=== PATIENT | female | born 1950 | race Caucasian/White ===

== ENCOUNTER 2023-01-13 07:47 | Outpatient (OUT) | payer OTHER, SELFPAY ==
[2023-01-13 08:21] LABS: Basophils Absolute Auto 0.1 10^3/uL (0.0-0.1); Basophils Percent Auto 1.5 % (0.2-2.0); Eosinophils Absolute Auto 0.2 10^3/uL (0.0-0.7); Eosinophils Percent Auto 6.4 % (0.9-7.0); Hematocrit 41.5 % (36.0-48.0); Immature Granulocytes Abs Auto 0.01 10^3/uL (0.00-0.03); Immature Granulocytes Pct Auto 0.3 % (0.0-0.5); Lymphocytes Absolute Auto 1.4 10^3/uL (1.2-3.8); Lymphocytes Percent Auto 41.2 % (20.5-60.0); Mean Corpuscular HGB Conc 33.7 g/dL (29.9-35.2); Mean Corpuscular Hemoglobin 30.8 pg (26.7-34.0); Mean Corpuscular Volume 91.4 fL (81.0-99.0); Monocytes Absolute Auto 0.4 10^3/uL (0.3-0.8); Monocytes Percent Auto 10.9 % (1.7-12.0); Neutrophils Absolute Auto 1.3 10^3/uL (1.4-6.5); Neutrophils Percent Auto 39.7 % (43.0-75.0); Platelet Count 177 10^3/uL (150-450); Red Blood Count 4.54 10^6/uL (4.20-5.40); Red Cell Distribution Width 13.4 % (11.0-15.0); White Blood Count 3.3 10^3/uL (4.0-11.0)
[2023-01-13 08:51] LABS: Estimated Average Glucose 105 mg/dL; Glycohemoglobin A1C 5.3 % (4.5-6.2)
[2023-01-13 09:03] LABS: Alanine Aminotransferase 21 U/L (14-59); Albumin Globulin Ratio 1.2; Albumin Level 3.8 g/dL (3.4-5.0); Alkaline Phosphatase 77 U/L (46-116); Anion Gap 12.1; Aspartate Amino Transferase 14 U/L (15-37); BUN Creatinine Ratio 22.1; Bilirubin Total 0.5 mg/dL (0.2-1.0); Calcium 9.1 mg/dL (8.5-10.1); Chloride 103 mmol/L (98-107); Chol HDL Ratio 2.8; Cholesterol 172 mg/dL (<=200); Estimated GFR (African America >60 (>=60); Estimated GFR (Non-African Ame >60 (>=60); Free T3 2.42 pg/mL (2.18-3.98); Globulin 3.3 g/dL; Glucose 109 mg/dL (74-106); HDL Cholesterol 61 mg/dL (40-60); Potassium 4.1 mmol/L (3.5-5.1); Sodium 139 mmol/L (136-145); Thyroid Stimulating Hormone 0.143 uIU/mL (0.358-3.740); Total Protein 7.1 g/dL (6.4-8.2); Triglycerides 92 mg/dL (<=150); VLDL CHOLESTEROL 18.4 mg/dL
[2023-01-14 11:09] LABS: Insulin 5.4 uIU/mL (2.6-24.9)
== END 2023-01-13 07:48 | disposition home or self-care (01) ==
LOC: LAB 07:47
PROVIDERS: PCP Nurse Practitioner Family; Visit Provider Nurse Practitioner Family
DX: E03.9 Hypothyroidism, unspecified (principal); D64.9 Anemia, unspecified; E55.9 Vitamin D deficiency, unspecified; R73.09 Other abnormal glucose
CPT/HCPCS: 36415; 80053; 80061; 81003; 82306; 83036; 83525; 83540; 84436; 84443; 84481; 85025

== ENCOUNTER 2023-01-14 11:08 | Outpatient (REF) | payer OTHER, SELFPAY ==
[2023-01-14 11:33] LABS: Occult Blood Negative
== END 2023-01-14 11:09 | disposition home or self-care (01) ==
LOC: LAB 11:08
PROVIDERS: PCP Nurse Practitioner Family; Visit Provider Nurse Practitioner Family
DX: Z12.12 Encounter for screening for malignant neoplasm of rectum (principal)
CPT/HCPCS: G0328

== ENCOUNTER 2023-01-24 09:26 | Outpatient (OUT) | payer OTHER, SELFPAY ==
--- NOTE | 2023-01-24 09:40 | CT_ITS ---
The [address] [address] Patient Name: HILDA PARMAR MRN: [id number] date: 1950 Sex: F Assigned Patient Location: CT Current Patient Location: CT Accession/Order Number: [id number] Exam Date: 01/24/2023 09:33 Report Date: 01/24/2023 13:07 At the request of: KAT PARIKH Procedure: CT lung screening low-dose EXAMINATION: CT lung screening low-dose HISTORY: Personal hx of nicotine dependence Z87.891 COMPARISON: CT chest 01/14/2022 TECHNIQUE: Axial, Coronal, and Sagittal images were created without the administration of IV contrast material. Dose reduction techniques were achieved by using automated exposure control and/or adjustment of mA and/or kV according to patient size and/or use of iterative reconstruction technique. FINDINGS: LUNGS: Stable appearance of a few tiny 3 mm nodules scattered within the lungs. No infiltrates or suspicious findings. PLEURA: No mass, effusion, or pneumothorax. VASCULATURE: No abnormality. MOLLY: No mass or pathologic adenopathy. MEDIASTINUM: No mass or pathologic adenopathy. CARDIAC: No enlargement, pericardial thickening, or significant calcification. AORTA: No aneurysm or dissection. CHEST WALL: No mass or axillary adenopathy BONES: No bone lesion or fracture. LIMITED ABDOMEN: No suspicious findings. Limited images of the upper abdomen. OTHER: Negative. CT/CT lung screening low-dose IMPRESSION: 1. Lung-RADS 2- Benign Appearance or Behavior. Nodules with a very low likelihood of becoming a clinically active cancer due to size or lack of growth. Follow-up CT Chest in 1 year. Electronically authenticated by: ROBERTA COLLAZO Date: 01/24/2023 13:07
== END 2023-01-24 09:27 | disposition home or self-care (01) ==
LOC: CT 09:26
PROVIDERS: PCP Nurse Practitioner Family; Visit Provider Nurse Practitioner Family
DX: Z87.891 Personal history of nicotine dependence (principal)
CPT/HCPCS: 71271

== ENCOUNTER 2023-02-04 10:15 | Outpatient (OUT) | payer OTHER, SELFPAY ==
[2023-02-04 10:32] LABS: Basophils Percent Auto 1.1 % (0.2-2.0); Eosinophils Absolute Auto 0.1 10^3/uL (0.0-0.7); Eosinophils Percent Auto 2.8 % (0.9-7.0); Hematocrit 41.2 % (36.0-48.0); Hemoglobin 13.9 g/dL (12.0-16.0); Immature Granulocytes Abs Auto 0.01 10^3/uL (0.00-0.03); Immature Granulocytes Pct Auto 0.3 % (0.0-0.5); Lymphocytes Absolute Auto 1.5 10^3/uL (1.2-3.8); Lymphocytes Percent Auto 40.5 % (20.5-60.0); Mean Corpuscular HGB Conc 33.7 g/dL (29.9-35.2); Mean Corpuscular Hemoglobin 30.8 pg (26.7-34.0); Mean Corpuscular Volume 91.2 fL (81.0-99.0); Monocytes Absolute Auto 0.4 10^3/uL (0.3-0.8); Monocytes Percent Auto 12.3 % (1.7-12.0); Neutrophils Absolute Auto 1.5 10^3/uL (1.4-6.5); Platelet Count 186 10^3/uL (150-450); Red Blood Count 4.52 10^6/uL (4.20-5.40); Red Cell Distribution Width 13.4 % (11.0-15.0); White Blood Count 3.6 10^3/uL (4.0-11.0)
== END 2023-02-04 10:16 | disposition home or self-care (01) ==
LOC: LAB 10:15
PROVIDERS: PCP Nurse Practitioner Family; Visit Provider Nurse Practitioner Family
DX: D72.9 Disorder of white blood cells, unspecified (principal)
CPT/HCPCS: 36415; 85025

== ENCOUNTER 2023-04-21 09:52 | Outpatient (OUT) | payer OTHER, SELFPAY ==
[2023-04-21 10:10] LABS: Basophils Percent Auto 0.8 % (0.2-2.0); Eosinophils Absolute Auto 0.1 10^3/uL (0.0-0.7); Eosinophils Percent Auto 2.7 % (0.9-7.0); Hematocrit 42.9 % (36.0-48.0); Hemoglobin 14.3 g/dL (12.0-16.0); Immature Granulocytes Abs Auto 0.01 10^3/uL (0.00-0.03); Immature Granulocytes Pct Auto 0.3 % (0.0-0.5); Lymphocytes Absolute Auto 1.5 10^3/uL (1.2-3.8); Lymphocytes Percent Auto 39.1 % (20.5-60.0); Mean Corpuscular HGB Conc 33.3 g/dL (29.9-35.2); Mean Corpuscular Hemoglobin 30.2 pg (26.7-34.0); Mean Corpuscular Volume 90.7 fL (81.0-99.0); Monocytes Absolute Auto 0.4 10^3/uL (0.3-0.8); Monocytes Percent Auto 11.6 % (1.7-12.0); Neutrophils Absolute Auto 1.7 10^3/uL (1.4-6.5); Neutrophils Percent Auto 45.5 % (43.0-75.0); Platelet Count 200 10^3/uL (150-450); Red Blood Count 4.73 10^6/uL (4.20-5.40); Red Cell Distribution Width 12.9 % (11.0-15.0); White Blood Count 3.7 10^3/uL (4.0-11.0)
== END 2023-04-21 09:53 | disposition home or self-care (01) ==
LOC: LAB 09:52
PROVIDERS: PCP Nurse Practitioner Family; Visit Provider Nurse Practitioner Family
DX: D72.9 Disorder of white blood cells, unspecified (principal)
CPT/HCPCS: 36415; 85025

== ENCOUNTER 2023-10-04 14:16 | Outpatient (OUT) | payer OTHER, SELFPAY | END 2023-10-04 14:17 | disposition home or self-care (01) | LOC: CARD 14:16 | PROVIDERS: PCP Nurse Practitioner Family; Visit Provider Nurse Practitioner Family | DX: R00.2 Palpitations (principal) | CPT/HCPCS: 93242 ==

== ENCOUNTER 2023-12-06 09:35 | Outpatient (OUT) | payer OTHER, SELFPAY ==
--- OUTSIDE RECORDS SUMMARY | 2023-12-06 09:46 | XMS_ITS | CCD ---
Author Organization [facility] Care Team Providers Care Periodontist Name Role Phone Ousmane De La Torre Unavailable Vernon Bajwa Unavailable [phone] JL, JULISA Admitting Unavailable JL, JULISA Attending Unavailable JL, JULISA Primary Care Unavailable DR ROBERTA COLLAZO Consulting Unavailable JL, JULISA Consulting Unavailable JL, JULISA Admitting Unavailable JL, JULISA Attending Unavailable JL, JULISA Primary Care Unavailable JL, JULISA Consulting Unavailable JL, JULISA Admitting Unavailable JL, JULISA Attending Unavailable JL, JULISA Primary Care Unavailable JL, JULISA Admitting Unavailable JL, JULISA Attending Unavailable JL, JULISA Primary Care Unavailable JL, JULISA Consulting Unavailable Self, Referral Attending Unavailable VernOusmane haro Primary Care Unavailable Julisa Alfaro Referring Unavailable Self, Referral Admitting Unavailable LEVAR DENIS Attending Unavailable Allergies Allergy Classification Reported Allergen(s) Allergy Type Date of Onset Reaction(s) Facility Opioid Agonists (1 source) Codeine; Translations: [CODEINE] Drug Allergy [facility] Sulfamethoxazole / Trimethoprim (1 source) Sulfamethoxazole / Trimethoprim; Translations: [SULFAMETHOXAZOLE-TR IMETHOPRIM] Drug Allergy [facility] (1 source) Codeine Drug Allergy 3 [facility] Rep[facility] (1 source) Sulfamethoxazole / Trimethoprim Drug Allergy [facility] Medications Current Medications Medication Drug Class(es) Dates Sig (Normalized) Sig (Original) albuterol 0.83 mg/ml inhalation solution (4 sources) beta2-Adrenergic Agonist Albuterol Sulfate (2.5 MG/3ML) 0.083% 3 ml as needed Inhalation every 6 hrs Active ALPRAZolam 0.25 mg oral tablet (4 sources) Benzodiazepine take 1 tablet by mouth every twelve hours ALPRAZolam 0.25 MG 1 tablet Orally Twice a day Active brinzolamide 10 mg/ml ophthalmic suspension (2 sources) Carbonic Anhydrase Inhibitor take 1 drop(s) into the eye(s) three times daily Brinzolamide 1 % 1 drop into affected eye Ophthalmic Three times a day Active dicyclomine hydrochloride 20 mg oral tablet (2 sources) Anticholinergic Start: 04-07-2022 take 1 tablet by mouth four times daily as needed Dicyclomine HCl 20 MG 1 tablet Orally Four times a day PRN for 30 day(s) Mar, Active dorzolamide 20 mg/ml / timolol 5 mg/ml ophthalmic solution (4 sources) Carbonic Anhydrase Inhibitor, beta-Adrenergic Cass take 1 drop(s) into the eye(s) twice daily Dorzolamide HCl-Timolol Mal 22.3-6.8 MG/ML 1 drop into affected eye Ophthalmic Twice a day Active levothyroxine sodium 0.137 mg oral tablet (4 sources) l-Thyroxine take 1 tablet by mouth once daily in the morning Levothyroxine Sodium 137 MCG 1 tablet in the morning on an empty stomach Orally Once a day Active loratadine 10 mg oral tablet (4 sources) take 1 tablet by mouth once daily Loratadine 10 MG 1 tablet Orally Once a day Active pantoprazole 40 mg delayed release oral tablet (2 sources) Proton Pump Inhibitor take 1 tablet by mouth every twenty-four hours Pantoprazole Sodium 40 MG 1 tablet Orally Once a day for 90 days Active Completed/Discontinued Medications Medication Drug Class(es) Dates Sig (Normalized) Sig (Original) triamcinolone acetonide 40 mg/ml injectable suspension (16 sources) Corticosteroid Start: 09-21-2021 Kenalog-40 Sep, 20 mg Start: 09-21-2021 Kenalog -40 mg Sep, 20 mg Start: 01-19-2021 Kenalog -40 mg Jan, 20 mg Problems Active Problems Problem Classification Problem Date Documented Da te Episodic/Chronic Abdominal hernia (3 sources) Hiatal hernia; Translations: [Diaphragmatic hernia without obstruction or gangrene] Episodic Abdominal pain (1 source) Epigastric pain Episodic Cardiac dysrhythmias (2 sources) Bradycardia, unspecified; Translations: [Bradycardia, unspecified] Onset: 4 Episodic Conduction disorders (2 sources) Unspecified atrioventricular block; Translations: [Unspecified atrioventricular block] Onset: 4 Chronic Coronary atherosclerosis and other heart disease (2 sources) Unstable angina; Translations: [Unstable angina] Onset: 4 Chronic Disorders of lipid metabolism (1 source) Hyperlipidemia, unspecified; Translations: [HYPERLIPIDEMIA UNSPECIFIED] Onset: 2 Chronic Esophageal disorders (10 sources) Gastroesophageal reflux disease; Translations: [Gastro-esophageal reflux disease without esophagitis] Onset: 2 Resolved: 2 Chronic Nonspecific chest pain (4 sources) Other chest pain; Translations: [OTHER CHEST PAIN] Onset: 2 Episodic Other disorders of stomach and duodenum (1 source) Indigestion; Translations: [Functional dyspepsia] Episodic Other disorders of stomach and duodenum (1 source) Functional dyspepsia Episodic Other gastrointestinal disorders (2 sources) Dysphagia; Translations: [Dysphagia, unspecified] Episodic Other lower respiratory disease (2 sources) Shortness of breath; Translations: [Shortness of breath] Onset: 4 Episodic Screening and history of mental health and substance abuse codes (4 sources) Personal history of nicotine dependence; Translations: [PERSONAL HISTORY OF NICOTINE DEPEND] Onset: 2 Episodic Unclassified (3 sources) CONTACT W/AND (SUSP) EXPOS COVID-19; Translations: [CONTACT W/AND (SUSP) EXPOS COVID-19] Onset: 1 Unclassified (1 source) OTHER SPECIFIED COUGH; Translations: [OTHER SPECIFIED COUGH] Onset: 1 Unclassified (1 source) Encounter for screening mammogram for malignant neoplasm of breast; Translations: [Encounter for screening mammogram for malignant neoplasm of breast] Onset: 4 Past or Other Problems Problem Classification Problem Date Documented Da te Episodic/Chronic Deficiency and other anemia (1 source) Anemia, unspecified; Translations: [ANEMIA UNSPECIFIED] Onset: 10-09-2021 Episodic Diabetes mellitus without complication (1 source) Other abnormal glucose; Translations: [OTHER ABNORMAL GLUCOSE] Onset: 10-09-2021 Episodic Malaise and fatigue (4 sources) Other fatigue; Translations: [OTHER FATIGUE] Onset: 10-08-2021 Episodic Unclassified (1 source) CONTACT W/AND (SUSP) EXPOS COVID-19; Translations: [CONTACT W/AND (SUSP) EXPOS COVID-19] Onset: 05-05-2021 Results Test Name Value Interpretation Reference Range Facility Office Visiton 11-14-2023 Follow-up visit [id number] Hilda Parmar 1950 F Date Provider Department Center 11/14/2023 [facility] Family History Problem Relation Age of Onset Angina Maternal Grandmother Family Status - Relation Status Age at Maternal Grandmother Level of Service:89272 CO OFFICE/OUTPATIENT NEW MODERATE MDM 45 MINUTES [facility] MM screening mammo BI w/CADo n 08-02-2023 MM screening mammo BI w/CAD [facility] [address] Mammography Report Signed Patient: Hilda Parmar MR#: [id number] : 1950 Acct:[id number] Age/Sex: 73 / F ADM Date: 08/02/23 Loc: [place] Room: Type: [facility] Attending Dr: Referral Self Copies to: MD Julisa Daniels CNP SELF,REFERRAL Ordering Provider: SELF,REFERRAL Date of Service: 08/02/23 MM/MM screening mammo BI w/CAD: SCREENING BILATERAL Screening Full Field digital mammogram with 3-D imaging. Full field digital CC and MLO imaging performed. CAD utilized. COMPARISON: 06/23/2022 HISTORY: Annual screening BREAST COMPOSITION: Scattered fibroglandular densities of the breast parenchyma identified BENIGN BREAST CALCIFICATIONS: Present VASCULAR CALCIFICATIONS: Present DEVELOPING ARCHITECTURAL DISTORTION: None DEVELOPING BREAST NODULE: None DEVELOPING MALIGNANT CALCIFICATIONS: None AXILLARY LYMPH NODES: Normal POSTSURGICAL CHANGES: None MM/MM screening mammo BI w/CAD IMPRESSION: No mammographic evidence of malignancy. Routine follow-up recommended in one year. RESULT CODE: 2 Benign Findings(s) DENSITY CODE: 2 (approximately 25-50% glandular) FOLLOW UP: 1YR THE FALSE-NEGATIVE RATE OF MAMMOGRAPHY IS APPROXIMATELY 10%. IMAGING OF A PALPABLE ABNORMALITY MUST BE BASED ON CLINICAL GROUNDS. PATIENT WAS ENTERED INTO A REMINDER SYSTEM WITH A TARGET DUE DATE FOR THE NEXT MAMMOGRAM. Impression dictated by: Jayjay Somers M.D.08/02/2023 10:43 AM Dictation Location: [facility] Transcribed By: [facility] 08/02/23 1043 Dictated By: Jayjay Somers DO 08/02/231040 Signed By: 08/02/23 10[address] [facility] [address] CHEST WO CONon 01-14-2022 CT CHEST WO CON EXAMINATION: CT CHEST WO CON HISTORY: Nicotine dependence COMPARISON: CT chest 12/25/2020 TECHNIQUE: Axial, Coronal, and Sagittal images were created without the administration of IV contrast material. Dose reduction techniques were achieved by using automated exposure control and/or adjustment of mA and/or kV according to patient size and/or use of iterative reconstruction technique. FINDINGS: LUNGS: Stable appearance of the few tiny 2-3 mm nodules scattered within the lungs; no suspicious nodules. No acute infiltrates or significant chronic changes. PLEURA: No mass, effusion, or pneumothorax. VASCULATURE: No abnormality. MOLLY: No mass or pathologic adenopathy. MEDIASTINUM: No mass or pathologic adenopathy. CARDIAC: No enlargement, pericardial thickening, or significant calcification. AORTA: No aneurysm or dissection. CHEST WALL: No mass or axillary adenopathy BONES: No bone lesion or fracture. LIMITED ABDOMEN: No suspicious findings. Limited images of the upper abdomen. OTHER: Negative. IMPRESSION: 1. LUNG SCREENING: Lung-RADS Category 2- Benign Appearance or Behavior. Nodules with a very low likelihood of becoming a clinically active cancer due to size or lack of growth. 2. Continue annual screening with LDCT in 12 months. Electronically authenticated by: ROBERTA COLLAZO Date: 2022-01-14 16:24 Normal [facility] INSULINon 10-09-2021 Insulin 5.2 uIU/mL Normal 2.6-24.9 [facility] Comment on above: Performed By: #### I NSULIN #### [facility] [address] [place] [address] Dr. Raf [place] CBC AUTO DIFFon 10-08-2021 BASO # 0.1 103/ul Normal 0.0-0.1 [facility] Comment on above: Performed By: #### C BC #### [facility] [address] [address] [address] Raf [place] Basophils/100 WBC (Bld) 1.1 % Normal 0.2-2.0 [facility] Comment on above: Performed By: #### C BC #### [facility] [address] [address] [address] Raf [place] EO # 0.1 103/ul Normal 0.0-0.7 [facility] Comment on above: Performed By: #### C BC #### [facility] [address] [address] [address] Raf [place] Eosinophils/100 WBC (Bld) 1.6 % Normal 0.9-7.0 [facility] Comment on above: Performed By: #### C BC #### [facility] [address] [place] [address] Dr. Raf [place] Erythrocyte distribution width (RBC) [Ratio] 13.2 % Normal 11.0-15.0 [facility] Comment on above: Performed By: #### C BC #### [facility] [address] [place] [address] Dr. Raf [place] Hematocrit (Bld) [Volume fraction] 45.2 % Normal 36.0-48.0 [facility] Comment on above: Performed By: #### C BC #### [facility] [address] [place] [address] Dr. Raf [place] Hemoglobin (Bld) [Mass/Vol] 14.9 g/dL Normal 12.0-16.0 [facility] Comment on above: Performed By: #### C BC #### [facility] [address] [place] [address] Dr. Raf [place] IG # 0.01 10e3/ul Normal 0.00-0.03 [facility] Comment on above: Performed By: #### C BC #### [facility] [address] [place] [address] Dr. Raf [place] IG % 0.2 % Normal 0.0-0.5 [facility] Comment on above: Performed By: #### C BC #### [facility] [address] [place] [address] Dr. Raf [place] LYMPH # 1.5 103/ul Normal 1.2-3.8 [facility] Comment on above: Performed By: #### C BC #### [facility] [address] [place] [address] Dr. Raf [place] Lymphocytes/100 WBC (Bld) 33.9 % Normal 20.5-60.0 [facility] Comment on above: Performed By: #### C BC #### [facility] [address] [place] [address] Dr. Raf [place] MANUAL DIFF REQ NO Normal [facility] Comment on above: Performed By: #### C BC #### [facility] [address] [place] [address] Dr. Raf Houston MCH (RBC) [Entitic mass] 30.6 pg Normal 26.7-34.0 [facility] Comment on above: Performed By: #### C BC #### [facility] [address] [place] [address] Dr. Raf Houston MCHC (RBC) [Mass/Vol] 33.0 g/dL Normal 29.9-35.2 [facility] Comment on above: Performed By: #### C BC #### [facility] [address] [place] [address] Dr. Raf Houston MCV (RBC) [Entitic vol] 92.8 fL Normal 81.0-99.0 [facility] Comment on above: Performed By: #### C BC #### [facility] [address] [place] [address] Dr. Raf Houston MONO # 0.5 103/ul Normal 0.3-0.8 [facility] Comment on above: Performed By: #### C BC #### [facility] [address] [place] [address] Dr. Raf [place] Monocytes/100 WBC (Bld) 11.0 % Normal 1.7-12.0 [facility] Comment on above: Performed By: #### C BC #### [facility] [address] [place] [address] Dr. Raf Houston NEUT # 2.3 103/ul Normal 1.4-6.5 [facility] Comment on above: Performed By: #### C BC #### [facility] [address] [place] [address] Dr. Raf [place] Neutrophils/100 WBC (Bld) 52.2 % Normal 43.0-75.0 [facility] Comment on above: Performed By: #### C BC #### [facility] [address] [place] [address] Dr. Raf [place] Platelet mean volume (Bld) [Entitic vol] 9.6 fL Normal 9.5-13.5 [facility] Comment on above: Performed By: #### C BC #### [facility] [address] [place] [address] Dr. Raf Houston PLT 215 103/ul Normal 150-450 [facility] Comment on above: Performed By: #### C BC #### [facility] [address] [place] [address] Dr. Raf Houston RBC 4.87 106/ul Normal 4.20-5.40 [facility] Comment on above: Performed By: #### C BC #### [facility] [address] [place] [address] Dr. Raf Houston WBC 4.5 103/ul Normal 4.0-11.0 [facility] Comment on above: Performed By: #### C BC #### [facility] [address] [place] [address] Dr. Raf [place] FREE THYROXINE INDEX T7on FTI 3.61 Normal [facility] Comment on above: Performed By: #### T 7, CMP, TSH, LIPID #### [facility] [address] [place] [address] Dr. Raf [place] T3U 41.0 % Critically high 23.5-40.5 The [facility] Comment on above: Performed By: #### T 7, CMP, TSH, LIPID #### [facility] [address] [place] [address] Dr. Raf [place] T4 [Mass/Vol] 8.80 ug/dL Normal 4.80-13.90 [facility] Comment on above: Performed By: #### T 7, CMP, TSH, LIPID #### [facility] [address] [address] [address] Raf [place] GLYCOHEMOGLOBIN A1Con 2021 ADA RECOMMENDATION SEE BELOW Normal [facility] Comment on above: Result Comment: ADA RECOMMENDED LIMIT 4.0 - 6.0 ADA THERAPEUTIC TARGET < 7.0 ACTION SUGGESTED > 7.0 Performed By: #### A 1C #### [facility] [address] [address] [address] Raf [place] Glucose [Mass/Vol] 111 mg/dL Normal [facility] Comment on above: Performed By: #### A 1C #### [facility] [address] [place] [address] Dr. Raf [place] HbA1c (Bld) [Mass fraction] 5.5 % Normal 4.5-6.2 [facility] Comment on above: Performed By: #### A 1C #### [facility] [address] [address] [address] Raf [place] IRONon 10-08-2021 Iron [Mass/Vol] 139.0 ug/dL Normal 50.0-170.0 [facility] Comment on above: Performed By: #### I ISABEL #### [facility] [address] [place] [address] Dr. Raf Houston LIPID PROFILEon 10-08-2021 CHOL-HDL RATIO NORM SEE BELOW Normal [facility] Comment on above: Result Comment: 3.3 - 4.4 LOW RISK 4.4 - 7.1 AVERAGE RISK 7.1 - 11.0 MODERATE RISK >11.0 HIGH RISK Performed By: #### T 7, CMP, TSH, LIPID #### [facility] [address] [place] [address] Dr. Raf [place] Cholesterol [Mass/Vol] 189 mg/dL Normal <=200 [facility] Comment on above: Performed By: #### T 7, CMP, TSH, LIPID #### [facility] [address] [place] [address] Dr. Raf [place] Cholesterol in HDL [Mass/Vol] 63 mg/dL Critically high 40-60 [facility] Comment on above: Performed By: #### T 7, CMP, TSH, LIPID #### [facility] [address] [address] [address] Raf [place] Cholesterol in LDL [Mass/Vol] 110.0 mg/dL Normal [facility] Comment on above: Performed By: #### T 7, CMP, TSH, LIPID #### [facility] [address] [address] [address] Raf [place] Cholesterol.total/Cho lesterol in HDL [Mass ratio] 3.0 {ratio} Normal [facility] Comment on above: Performed By: #### T 7, CMP, TSH, LIPID #### [facility] [address] [address] [address] Raf [place] HDL NORMAL > or = 60 mg/dl - LOW CARDIOVASCULAR RISK <40 mg/dl - HIGH CARDIOVASCULAR RISK Normal [facility] Comment on above: Performed By: #### T 7, CMP, TSH, LIPID #### [facility] [address] [address] [address] Raf [place] LDL CALC NORMAL SEE BELOW Normal [facility] Comment on above: Result Comment: <100 mg/dl OPTIMAL 100 - 129 mg/dl NEAR OR ABOVE OPTIMAL 130 - 159 mg/dl BORDERLINE HIGH 160 - 189 mg/dl HIGH >190 mg/dl VERY HIGH Performed By: #### T 7, CMP, TSH, LIPID #### [facility] [address] [address] [address] Raf [place] Triglyceride [Mass/Vol] 80 mg/dL Normal <=150 [facility] Comment on above: Performed By: #### T 7, CMP, TSH, LIPID #### [facility] [address] [address] [address] Raf [place] VLDL CALC 16.0 mg/dL Normal [facility] Comment on above: Performed By: #### T 7, CMP, TSH, LIPID #### [facility] [address] [address] [address] Raf [place] PROF 14(COMP METB)on 022 Albumin [Mass/Vol] 3.8 g/dL Normal 3.4-5.0 [facility] Comment on above: Performed By: #### T 7, CMP, TSH, LIPID #### [facility] [address] [address] [address] Raf [place] Albumin/Globulin [Mass ratio] 1.1 {ratio} Normal [facility] Comment on above: Performed By: #### T 7, CMP, TSH, LIPID #### [facility] [address] [place] [address] Dr. Raf [place] ALP [Catalytic activity/Vol] 72 U/L Normal 46-116 [facility] Comment on above: Performed By: #### T 7, CMP, TSH, LIPID #### [facility] [address] [place] [address] Dr. Raf [place] ALT [Catalytic activity/Vol] 35 U/L Normal 14-59 [facility] Comment on above: Performed By: #### T 7, CMP, TSH, LIPID #### [facility] [address] [address] [address] Raf [place] Anion gap [Moles/Vol] 9.7 mmol/L Normal [facility] Comment on above: Performed By: #### T 7, CMP, TSH, LIPID #### [facility] [address] [address] [address] Raf [place] AST [Catalytic activity/Vol] 18 U/L Normal 15-37 [facility] Comment on above: Performed By: #### T 7, CMP, TSH, LIPID #### [facility] [address] [address] [address] Raf [place] Bilirubin [Mass/Vol] 0.6 mg/dL Normal 0.2-1.0 [facility] Comment on above: Performed By: #### T 7, CMP, TSH, LIPID #### [facility] [address] [address] [address] Raf [place] Calcium [Mass/Vol] 8.7 mg/dL Normal 8.5-10.1 [facility] Comment on above: Performed By: #### T 7, CMP, TSH, LIPID #### [facility] [address] [address] [address] Raf [place] Chloride [Moles/Vol] 103 mmol/L Normal 98-107 [facility] Comment on above: Performed By: #### T 7, CMP, TSH, LIPID #### [facility] [address] [address] [address] Raf [place] CO2 [Moles/Vol] 31.6 mmol/L Normal 21.0-32.0 [facility] Comment on above: Performed By: #### T 7, CMP, TSH, LIPID #### [facility] [address] [place] [address] Dr. Raf Houston Creatinine [Mass/Vol] 0.72 mg/dL Normal 0.55-1.02 [facility] Comment on above: Performed By: #### T 7, CMP, TSH, LIPID #### [facility] [address] [place] [address] Dr. Raf [place] EGFR-AF BRUNEIAN >60 Normal >=60 [facility] Comment on above: Performed By: #### T 7, CMP, TSH, LIPID #### [facility] [address] [place] [address] Dr. Raf [place] EGFR-NON AF BRUNEIAN >60 Normal >=60 [facility] Comment on above: Performed By: #### T 7, CMP, TSH, LIPID #### [facility] [address] [place] [address] Dr. Raf [place] Globulin (S) [Mass/Vol] 3.4 g/dL Normal [facility] Comment on above: Performed By: #### T 7, CMP, TSH, LIPID #### [facility] [address] [place] [address] Dr. Raf [place] Glucose [Mass/Vol] 103 mg/dL Normal 74-106 [facility] Comment on above: Performed By: #### T 7, CMP, TSH, LIPID #### [facility] [address] [place] [address] Dr. Raf [place] Potassium [Moles/Vol] 4.3 mmol/L Normal 3.5-5.1 [facility] Comment on above: Performed By: #### T 7, CMP, TSH, LIPID #### [facility] [address] [place] [address] Dr. Raf [place] Protein [Mass/Vol] 7.2 g/dL Normal 6.1-8.2 [facility] Comment on above: Performed By: #### T 7, CMP, TSH, LIPID #### [facility] [address] [place] [address] Dr. Raf [place] Sodium [Moles/Vol] 140 mmol/L Normal 136-145 [facility] Comment on above: Performed By: #### T 7, CMP, TSH, LIPID #### [facility] [address] [place] [address] Dr. Raf [place] Urea nitrogen [Mass/Vol] 13.0 mg/dL Normal 7.0-18.0 [facility] Comment on above: Performed By: #### T 7, CMP, TSH, LIPID #### [facility] [address] [place] [address] Dr. Raf [place] Urea nitrogen/Creatinine [Mass ratio] 18.1 mg/mg Normal [facility] Comment on above: Performed By: #### T 7, CMP, TSH, LIPID #### [facility] [address] [place] [address] Dr. Raf [place] TSHon 10-08-2021 TSH 0.471 uIU/mL Normal 0.470-4.680 [facility] Comment on above: Performed By: #### T 7, CMP, TSH, LIPID #### [facility] [address] [place] [address] Dr. Raf Houston TSH RANGE SEE BELOW Normal [facility] Comment on above: Result Comment: <0.3 4 UIU/ml HYPERTHYROID 0.34-5.60 UIU/ml EUTHYROID >5.60 UIU/ml HYPOTHYROID Performed By: #### T 7, CMP, TSH, LIPID #### [facility] [address] [place] [address] Dr. Raf [place] Covid-19 PCR (CVDTB)on 04-14 SARS-CoV-2 (COVID-19) RNA NAHED+probe Ql (Unsp spec) Not detected Normal NOT DETECTED [facility] Comment on above: Result Comment: This test is not yet approved or cleared by the [place] FDA. When there are no FDA-approved or cleared tests available, and other criteria are met, FDA can make tests available under an emergency access mechanism called an Emergency Use Authorization (EUA). The EUA for this test is supported by the [place] of Health and Human Service's (HHS's) declaration that circumstances exist to justify the emergency use of in vitro diagnostics for the detection and/or diagnosis of the virus that causes COVID-19. This EUA will remain in effect (meaning this test can be used) for the duration of the COVID-19 declaration justifying emergency of IVDs, unless it is terminated or revoked by FDA (after which the test may no longer be used). When diagnostic testing is negative, the possibility of a false negative should be considered in the context of a patient's recent exposures and the presence of clinical signs and symptoms consistent with SARS-CoV-2. Performed By: #### C VDTB #### [facility] [address] [place] [address] Dr. Raf [place] Outside Colonoscopyon 2019 Outside Colonoscopy [id number] 53#1.00CD:127 Normal [facility] Lab Reportson 01-22-2020 Lab Reports [id number] D4#1.00CD:127 Normal [facility] Consent for Procedure/Surger yon 01-02-2020 Consent for Procedure/Surgery [id number] 5D#1.00CD:127 Normal [facility] Facesheeton 01-01-2020 Facesheet [id number] 41#1.00CD:127 Normal [facility] Ambulatory Clinical Summaryo n 12-28-2019 Ambulatory Clinical Summary {[id number]}CD:[id number] 8 [facility] Consultation Noteon 12-24-19 20 Consultation Note [id number] C7#1.00CD:127 [facility] Lab Reportson 12-24-2019 Lab Reports [id number] 1C#1.00CD:127 [facility] Physician Referralon 020 Physician Referral [id number]#1.00CD:127 [facility] Vital Signs Date Time Vital Sign Value Performing Clinician Facility 10-06-2022 10:45-0400 Body height 165.1 cm Vernon Bajwa Other [facility] Other 10-06-2022 10:45-0400 Body mass index (BMI) [Ratio] 32.61 kg/m2 Vernon Bajwa Other [facility] Other 10-06-2022 10:45-0400 Body weight 88.91 kg Vernon Bajwa Other [facility] Other 10-06-2022 10:45-0400 Diastolic blood pressure 85 mm[Hg] Vernon Bajwa Other [facility] Other 10-06-2022 10:45-0400 Systolic blood pressure 132 mm[Hg] Vernon Bajwa Other [facility] Other 04-07-2022 11:00-0400 Body height 165.1 cm Vernon Bajwa Other [facility] Other 04-07-2022 11:00-0400 Body mass index (BMI) [Ratio] 32.28 kg/m2 Vernon Bajwa Other [facility] Other 04-07-2022 11:00-0400 Body weight 88 kg Vernon Bajwa Other [facility] Other 04-07-2022 11:00-0400 Diastolic blood pressure 89 mm[Hg] Vernon Bajwa Other [facility] Other 04-07-2022 11:00-0400 Systolic blood pressure 127 mm[Hg] Vernon Bajwa Other [facility] Other Encounters Encounter Date Encounter Type Care Provider Facility Start: 11-14-2023 End: 11-14-2023 ambulatory [facility] Start: 08-02-2023 End: 08-02-2023 ambulatory Referral Self Facility:[facility] Start: 10-06-2022 End: 10-06-2022 ambulatory Vernon Bajwa Other [facility] Other Start: 10-06-2022 Office outpatient visit 15 minutes Vernon Bajwa [facility] Start: 04-07-2022 End: 04-07-2022 ambulatory Vernon Garett Other [facility] Other Start: 04-07-2022 Office outpatient visit 15 minutes Vernon Bajwa [facility] Start: 01-14-2022 End: 01-15-2022 ambulatory JULISA JL Facility:[facility] Start: 01-12-2022 End: 01-12-2022 ambulatory Vernon Garett Other [facility] Other Start: 01-12-2022 Telephone encounter Vernon Chasitydean ck [facility] Start: 10-19-2021 End: 10-20-2021 ambulatory JULISA JL Facility:[facility] Start: 10-08-2021 End: 10-09-2021 ambulatory JULISA JL Facility:[facility] Start: 09-20-2021 End: 09-20-2021 ambulatory Ousmane De La Torre Other [place] [facility] Other Start: 09-20-2021 Encounter by josiah De La Torre [facility] Start: 05-05-2021 End: 05-05-2021 ambulatory JULISA ALFARO Facility:[facility] Payers Date Payer Category Payer Self-pay 2022 Unknown [id number] 1961 Medicare [id number] 2.1 [id number] 1961 Unknown [id number] 2.16.8 [id number] 1948 Unknown [id number] 2.16.84 [id number] 1948 Unknown [id number] 2.16.84 [id number] 1948 Unknown [id number] 2.16.84 [id number] 1948 Unknown [id number] 2.16.84 [id number] Unknown [id number] 2.16.8 [id number] Social History Date Type Detail Facility Sex Assigned At [place] [facility] Other Progress note 11-14-2023 Note Date & Type Note Facility 11-14-2023 Note [facility] Cardiology Clinic Note Chief Complaint: New patient here to establish care. Ref from Julisa Alfaro CNP for bradycardia. She wore Holter monitor recently. Denies chest pain. Does get FOSTER and palpitations. Former smoker. HPI: Hilda Parmar is a 73 y.o. female With a history of hypothyroidism, GERD, and COPD here due to palpitations and an abnormal Holter monitor She has always had significant palpitations. She wore a 48-hour Holter monitor recently which showed evidence of AV block as well as paroxysmal supraventricular tachycardia. The patient experiences palpitations 2-3 times a week; these are typically when she is standing. They are short-lived. She has lightheadedness but no significant presyncope or syncope. She denies chest pain. Her shortness of breath is improved with inhaler therapy. No orthopnea, no paroxysmal dyspnea, no lower extremity edema. Social history: She drinks an alcoholic beverage daily. She does not smoke. Cardiology ROS: Review of Systems Cardiovascular: Positive for dyspnea on exertion and palpitations. Musculoskeletal: Positive for arthritis, back pain, joint pain and myalgias. Neurological: Positive for light-headedness. Past Medical History She has no past medical history on file. Surgical History She has no past surgical history on file. Social History She has no history on file for tobacco use, alcohol use, and drug use. Family History No family history on file. Allergies Patient has no allergy information on record. Medications No current outpatient medications on file. Last Recorded Vitals BP 132/78 (BP Location: Left arm, Patient Position: Sitting) Pulse 76 Ht 1.651 m (5' 5 ) Wt 88.5 kg (195 lb) SpO2 96% BMI 32.45 kg/m??? Physical Examination: GENERAL: alert and oriented x3, well developed, in no acute distress. HEAD: atraumatic, normocephalic. EYES: MARLEE, EOMI. NECK: trachea midline, no JVD present, no carotid bruits present. CARDIAC: S1, S2 present. RRR. No murmur, rubs, or gallops. RESPIRATORY: CTAB, no increased effort of breathing, no rales, rhonchi, or wheezing. ABDOMEN: soft, nontender, nondistended. EXTREMITIES: no lower extremity edema, peripheral pulses are 2+ bilaterally. No rash/skin discoloration present. NEURO: strength/sensation equal and symmetric in bilateral upper and lower extremities. PSYCH: appropriate mood, affect, and judgement. Investigations: Holter monitor 10/14/2023: Impression: Predominant rhythm is sinus with an average heart rate of 76 bpm Fastest heart rate of 155 bpm PSVT/rate of 31 bpm type II AV block Frequent ventricular ectopy with couplets, bigeminy, trigeminy and total burden of 4% AV block: 2:1 conduction difficult to determine type I or type II No atrial fibrillation No significant pauses Treadmill exercise stress test 10/19/2021: Normal exercise stress test without ECG evidence of myocardial ischemia. Forrester treadmill score 3.6 which places the patient in the moderate risk category. 12 lead EK11/14/2023 NSR, LAFB, abnormal ECG Assessment: Palpitations Dyspnea on exertion Evidence of 2-1 AV block Supraventricular tachycardia Ventricular ectopy Hypothyroidism Abnormal ECG ETOH use Plan: Routine labs; CBC, CMP, TSH, free T3, free T4, electrolytes A complete echocardiogram A Lexiscan stress test will be ordered to rule out occult ischemia given evidence of ventricular and supraventricular ectopy as well as the patient's dyspnea on exertion A 30-day event monitor will be ordered +/- referral to EP RTC following testing Levar Denis MD, MPH, [facility], [facility], [facility] Interventional Cardiology Pager Email: [email or web address] Evaluation note 10-06-2022 Note Date & Type Note Facility 10-06-2022 Evaluation note Encounter Date Diagnosis Assessment Notes Sep, GERD (gastroesopha geal reflux disease) (ICD-10 - K21.9) Patient reports feeling well with no heartburn. Patient is watching her diet & avoiding foods that trigger her symptoms. Continue Pantioprazole without change, Return visit in one year Sep, Esophageal spasm (ICD-10 - K22.4) Sep, Dyspepsia (ICD-10 - K30) Patient reports feeling well with no dyspepsia [facility] Other Evaluation note 04-07-2022 Note Date & Type Note Facility 04-07-2022 Evaluation note Encounter Date Diagnosis Assessment Notes Mar, GERD (gastroesopha geal reflux disease) (ICD-10 - K21.9) Continue Pantoprazole Mar, Hiatal hernia (ICD-10 - K44.9) Mar, Esophageal spasm (ICD-10 - K22.4) Pt to call if dysphagia returns Mar, Dyspepsia (ICD-10 - R10.13) Start Dicyclomine qid prn Follow up in 6 months [facility] Other Evaluation note 01-12-2022 Note Date & Type Note Facility 01-12-2022 Evaluation note Encounter Date Diagnosis Assessment Notes Jan, Gastro-esophage al reflux disease without esophagitis (ICD-10 - K21.9) [facility] Other Evaluation note Note Date & Type Note Facility Evaluation note No Information [employer] Other History general Narrative - Reported Note Date & Type Note Facility History general Narrative - Reported Type Medical History glaucoma Surgical History left elbow bone spur removal Surgical History gallbladder [facility] Other Summary Purpose Family History No Family History Records FoundNo Family History Records FoundNo Family History Records FoundNo Family History Records Found Advance Directives No Advanced Directives Records FoundNo Advanced Directives Records FoundNo Advanced Directives Records FoundNo Advanced Directives Records Found Additional Source Comments INFORMATION SOURCE (unrecogn ized section and content) DATE CREATED AUTHOR 02/11/2020 [facility] DATE CREATED AUTHOR AUTHOR'S ORGANIZ ATION 01/17/2022 [facility] DATE CREATED AUTHOR AUTHOR'S ORGANIZ ATION 08/12/2023 [facility] DATE CREATED AUTHOR AUTHOR'S ORGANIZ ATION 11/14/2023 [facility] REASON FOR VISIT (unrecogniz ed section and content) Update Dennys JoséEMA PA PPWPATIENT HERE FOR EGD FOLLOW UP ON 02/09/2022 FOR GERD AND DYSPHAGIA.PATIENT HERE FOR 6 MONTH FOLLOW UP FOR RECORDS PERTAINING TO PATIENTS WHO ARE OR HAVE BEEN ENROLLED IN A CHEMICAL DEPENDENCY/SUBSTANCEABUSE PROGRAM, SOME INFORMATION MAY BE OMITTED. This clinical summary was aggregated from multiple sources. Caution should be exercised in using it in the provision of clinical care. This summary normalizes information from multiple sources, and as a consequence, information in this document may materially change the coding, format and clinical context of patient data. In addition, data may be omitted in some cases. CLINICAL DECISIONS SHOULD BE BASED ON THE PRIMARY CLINICAL RECORDS. [employer] provides no warranty or guarantee of the accuracy or completeness of information in this document.
[2023-12-06 10:04] LABS: Basophils Percent Auto 0.9 % (0.2-2.0); Eosinophils Absolute Auto 0.1 10^3/uL (0.0-0.7); Eosinophils Percent Auto 1.7 % (0.9-7.0); Hematocrit 42.9 % (36.0-48.0); Hemoglobin 14.7 g/dL (12.0-16.0); Immature Granulocytes Abs Auto 0.01 10^3/uL (0.00-0.03); Immature Granulocytes Pct Auto 0.2 % (0.0-0.5); Lymphocytes Absolute Auto 1.2 10^3/uL (1.2-3.8); Lymphocytes Percent Auto 28.8 % (20.5-60.0); Mean Corpuscular HGB Conc 34.3 g/dL (29.9-35.2); Mean Corpuscular Hemoglobin 30.9 pg (26.7-34.0); Mean Corpuscular Volume 90.1 fL (81.0-99.0); Mean Platelet Volume 9.8 fL (9.5-13.5); Monocytes Absolute Auto 0.4 10^3/uL (0.3-0.8); Monocytes Percent Auto 10.2 % (1.7-12.0); Neutrophils Absolute Auto 2.5 10^3/uL (1.4-6.5); Neutrophils Percent Auto 58.2 % (43.0-75.0); Platelet Count 194 10^3/uL (150-450); Red Blood Count 4.76 10^6/uL (4.20-5.40); White Blood Count 4.2 10^3/uL (4.0-11.0)
[2023-12-06 10:54] LABS: Free T4 1.41 ng/dL (0.76-1.46)
[2023-12-06 10:59] LABS: Alanine Aminotransferase 24 U/L (14-59); Albumin Globulin Ratio 1.1; Albumin Level 3.8 g/dL (3.4-5.0); Alkaline Phosphatase 80 U/L (46-116); Anion Gap 10.9; Aspartate Amino Transferase 15 U/L (15-37); BUN Creatinine Ratio 16.5; Bilirubin Total 0.6 mg/dL (0.2-1.0); Calcium 9.3 mg/dL (8.5-10.1); Carbon Dioxide 28.1 mmol/L (21.0-32.0); Chloride 105 mmol/L (98-107); Estimated GFR (African America >60 (>=60); Estimated GFR (Non-African Ame >60 (>=60); Globulin 3.5 g/dL; Glucose 162 mg/dL (74-106); Sodium 140 mmol/L (136-145); Thyroid Stimulating Hormone 0.113 uIU/mL (0.358-3.740); Total Protein 7.3 g/dL (6.4-8.2)
[2023-12-07 04:08] LABS: Triiodothyronine (T3) 84 ng/dL (71-180)
== END 2023-12-06 09:36 | disposition home or self-care (01) ==
LOC: LAB 09:35
PROVIDERS: PCP Nurse Practitioner Family; Visit Provider Internal Medicine Interventional Cardiology
DX: I48.0 Paroxysmal atrial fibrillation (principal); R00.2 Palpitations
CPT/HCPCS: 36415; 80053; 83735; 84439; 84443; 84480; 85025

== ENCOUNTER 2023-12-06 11:34 | Outpatient (OUT) | payer OTHER, SELFPAY ==
--- OUTSIDE RECORDS SUMMARY | 2023-12-06 11:48 | XMS_ITS | CCD ---
Author Organization [facility] CliniSyct Care Team Providers Care Job Specification Writer Name Role Phone Ousmane De La Torre Unavailable Vernon Bajwa Unavailable [phone] JL, JULISA Admitting Unavailable JL, JULISA [...] source) Codeine; Translations: [CODEINE] Drug Allergy 4 [facility] Repository Sulfamethoxazole / Trimethoprim (1 source) Sulfamethoxazole / Trimethoprim; Translations: [SULFAMETHOXAZOLE-TR IMETHOPRIM] Drug Allergy 4 [facility] Repository (1 source) Codeine Drug Allergy 3 [facility] Repository (1 source) Sulfamethoxazole / Trimethoprim Drug Allergy [facility] Repository Medications Current Medications Medication Drug Class(es) [...] Range Facility Office Visiton 11-14-2023 Follow-up visit [id number] Hilda Parmar 1950 F Date Provider Department Center 11/14/2023 Marli-LEVAR DENIS [facility] Family History Problem Relation Age of Onset Angina Maternal Grandmother Family Status - Relation Status Age at Maternal Grandmother Level of Service:42035 [place] OFFICE/OUTPATIENT NEW MODERATE MDM 45 MINUTES Normal [facility] MM screening mammo BI w/CADo n 08-02-2023 MM screening mammo BI w/CAD [place] [address] Mammography Report Signed Patient: Hilda Parmar MR#: [id number] : 1950 Acct:[id number] Age/Sex: 73 / F ADM Date: 08/02/23 Loc: [place] Room: Type: [facility] Attending Dr: Referral Self Copies to: MD [...] Jayjay Somers M.D.08/02/2023 10:43 AM Dictation Location: [facility] Transcribed By: [facility] 08/02/23 1043 Dictated By: Jayjay Somers DO 08/02/231040 Signed By: 08/02/[address] [facility] [address] CHEST WO CONon 01-14-2022 CT CHEST [...] ROBERTA COLLAZO Date: 2022-01-14 16:24 Normal [facility] INSULINon 10-09-2021 Insulin 5.2 uIU/mL Normal 2.6-24.9 [facility] Comment on above: Performed By: #### I NSULIN #### [facility] [address] [place] [address] Dr. Raf Houston CBC AUTO DIFFon 10-08-2021 BASO # 0.1 103/ul Normal 0.0-0.1 [facility] Comment on above: Performed By: #### C BC #### [facility] [address] [address] [address] Raf Houston Basophils/100 WBC (Bld) 1.1 % Normal 0.2-2.0 [facility] Comment on above: Performed By: #### C BC #### [facility] [address] [address] [address] Raf Houston EO # 0.1 103/ul Normal 0.0-0.7 [facility] Comment on above: Performed By: #### C BC #### [facility] [address] [address] [address] Raf Houston Eosinophils/100 WBC (Bld) 1.6 % Normal 0.9-7.0 [facility] Comment on above: Performed By: #### C BC #### [facility] [address] [place] [address] Dr. Raf Houston Erythrocyte distribution width (RBC) [Ratio] 13.2 % Normal 11.0-15.0 [facility] Comment on above: Performed By: #### C BC #### [facility] [address] [place] [address] Dr. Raf Houston Hematocrit (Bld) [Volume fraction] 45.2 % Normal 36.0-48.0 [facility] Comment on above: Performed By: #### C BC #### [facility] [address] [place] [address] Dr. Raf Houston Hemoglobin (Bld) [Mass/Vol] 14.9 g/dL Normal 12.0-16.0 [facility] Comment on above: Performed By: #### C BC #### [facility] [address] [place] [address] Dr. Raf Houston IG # 0.01 10e3/ul Normal 0.00-0.03 [facility] Comment on above: Performed By: #### C BC #### [facility] [address] [place] [address] Dr. Raf Houston IG % 0.2 % Normal 0.0-0.5 [facility] Comment on above: Performed By: #### C BC #### [facility] [address] [place] [address] Dr. Raf Houston LYMPH # 1.5 103/ul Normal 1.2-3.8 [facility] Comment on above: Performed By: #### C BC #### [facility] [address] [place] [address] Dr. Raf Houston Lymphocytes/100 WBC (Bld) 33.9 % Normal 20.5-60.0 [facility] Comment on above: Performed By: #### C BC #### [facility] [address] [place] [address] Dr. Raf Housotn MANUAL DIFF REQ NO Normal [facility] Comment on above: Performed By: #### C BC #### [facility] [address] [place] [address] Dr. Raf Houston MCH (RBC) [Entitic mass] 30.6 pg Normal 26.7-34.0 [facility] Comment on above: Performed By: #### C BC #### [facility] [address] [place] [address] Dr. Raf Houston MCHC (RBC) [Mass/Vol] 33.0 g/dL Normal 29.9-35.2 [facility] Comment on above: Performed By: #### C BC #### [facility] [address] [place] [address] Dr. Raf Houston MCV (RBC) [Entitic vol] 92.8 fL Normal 81.0-99.0 [facility] Comment on above: Performed By: #### C BC #### [facility] [address] [place] [address] Dr. Raf Houston MONO # 0.5 103/ul Normal 0.3-0.8 [facility] Comment on above: Performed By: #### C BC #### [facility] [address] [place] [address] Dr. Raf Houston Monocytes/100 WBC (Bld) 11.0 % Normal 1.7-12.0 [facility] Comment on above: Performed By: #### C BC #### [facility] [address] [place] [address] Dr. Raf Houston NEUT # 2.3 103/ul Normal 1.4-6.5 [facility] Comment on above: Performed By: #### C BC #### [facility] [address] [place] [address] Dr. Raf Houston Neutrophils/100 WBC (Bld) 52.2 % Normal 43.0-75.0 [facility] Comment on above: Performed By: #### C BC #### [facility] [address] [place] [address] Dr. Raf Houston Platelet mean volume (Bld) [Entitic vol] 9.6 fL Normal 9.5-13.5 [facility] Comment on above: Performed By: #### C BC #### [facility] [address] [place] [address] Dr. Raf Houston PLT 215 103/ul Normal 150-450 [facility] Comment on above: Performed By: #### C BC #### [facility] [address] [place] [address] Dr. Raf Houston RBC 4.87 106/ul Normal 4.20-5.40 [facility] Comment on above: Performed By: #### C BC #### [facility] [address] [place] [address] Dr. Raf Houston WBC 4.5 103/ul Normal 4.0-11.0 [facility] Comment on above: Performed By: #### C BC #### [facility] [address] [place] [address] Dr. Raf Houston FREE THYROXINE INDEX T7on FTI 3.61 Normal [facility] Comment on above: Performed By: #### T 7, CMP, TSH, LIPID #### [facility] [address] [place] [address] Dr. Raf Houston T3U 41.0 % Critically high 23.5-40.5 [facility] Comment on above: Performed By: #### T 7, CMP, TSH, LIPID #### [facility] [address] [place] [address] Dr. Raf Houston T4 [Mass/Vol] 8.80 ug/dL Normal 4.80-13.90 [facility] Comment on above: Performed By: #### T 7, CMP, TSH, LIPID #### [facility] [address] [address] [address] Raf Houston GLYCOHEMOGLOBIN A1Con 2021 ADA RECOMMENDATION SEE BELOW Normal [facility] Comment on above: Result Comment: ADA RECOMMENDED LIMIT 4.0 - 6.0 ADA THERAPEUTIC TARGET < 7.0 ACTION SUGGESTED > 7.0 Performed By: #### A 1C #### [facility] [address] [address] [address] Raf Houston Glucose [Mass/Vol] 111 mg/dL Normal [facility] Comment on above: Performed By: #### A 1C #### [facility] [address] [place] [address] Dr. Raf Houston HbA1c (Bld) [Mass fraction] 5.5 % Normal 4.5-6.2 [facility] Comment on above: Performed By: #### A 1C #### [facility] [address] [address] [address] Raf Houston IRONon 10-08-2021 Iron [Mass/Vol] 139.0 ug/dL Normal 50.0-170.0 [facility] Comment on above: Performed By: #### I ISABEL #### [facility] [address] [place] [address] Dr. Raf Houston LIPID PROFILEon 10-08-2021 CHOL-HDL RATIO NORM SEE BELOW Normal [facility] Comment on above: Result Comment: 3.3 - 4.4 LOW RISK 4.4 - 7.1 AVERAGE RISK 7.1 - 11.0 MODERATE RISK >11.0 HIGH RISK Performed By: #### T 7, CMP, TSH, LIPID #### [facility] [address] [place] [address] Dr. Raf Houston Cholesterol [Mass/Vol] 189 mg/dL Normal <=200 [facility] Comment on above: Performed By: #### T 7, CMP, TSH, LIPID #### [facility] [address] [place] [address] Dr. Raf Houston Cholesterol in HDL [Mass/Vol] 63 mg/dL Critically high 40-60 [facility] Comment on above: Performed By: #### T 7, CMP, TSH, LIPID #### [facility] [address] [address] [address] Raf Houston Cholesterol in LDL [Mass/Vol] 110.0 mg/dL Normal [facility] Comment on above: Performed By: #### T 7, CMP, TSH, LIPID #### [facility] [address] [address] [address] Raf Houston Cholesterol.total/Cho lesterol in HDL [Mass ratio] 3.0 {ratio} Normal [facility] Comment on above: Performed By: #### T 7, CMP, TSH, LIPID #### [facility] [address] [address] [address] Raf Houston HDL NORMAL > or = 60 mg/dl - LOW CARDIOVASCULAR RISK <40 mg/dl - HIGH CARDIOVASCULAR RISK Normal [facility] Comment on above: Performed By: #### T 7, CMP, TSH, LIPID #### [facility] [address] [address] [address] Raf Houston LDL CALC NORMAL SEE BELOW Normal [facility] Comment on above: Result Comment: <100 mg/dl OPTIMAL 100 - 129 mg/dl NEAR OR ABOVE OPTIMAL 130 - 159 mg/dl BORDERLINE HIGH 160 - 189 mg/dl HIGH >190 mg/dl VERY HIGH Performed By: #### T 7, CMP, TSH, LIPID #### [facility] [address] [address] [address] Raf Houston Triglyceride [Mass/Vol] 80 mg/dL Normal <=150 [facility] Comment on above: Performed By: #### T 7, CMP, TSH, LIPID #### [facility] [address] [address] [address] Raf Houston VLDL CALC 16.0 mg/dL Normal [facility] Comment on above: Performed By: #### T 7, CMP, TSH, LIPID #### [facility] [address] [address] [address] Raf Houston PROF 14(COMP METB)on 022 Albumin [Mass/Vol] 3.8 g/dL Normal 3.4-5.0 [facility] Comment on above: Performed By: #### T 7, CMP, TSH, LIPID #### [facility] [address] [address] [address] Raf Houston Albumin/Globulin [Mass ratio] 1.1 {ratio} Normal [facility] Comment on above: Performed By: #### T 7, CMP, TSH, LIPID #### [facility] [address] [place] [address] Dr. Raf Houston ALP [Catalytic activity/Vol] 72 U/L Normal 46-116 [facility] Comment on above: Performed By: #### T 7, CMP, TSH, LIPID #### [facility] [address] [place] [address] Dr. Raf Houston ALT [Catalytic activity/Vol] 35 U/L Normal 14-59 [facility] Comment on above: Performed By: #### T 7, CMP, TSH, LIPID #### [facility] [address] [address] [address] Raf Houston Anion gap [Moles/Vol] 9.7 mmol/L Normal [facility] Comment on above: Performed By: #### T 7, CMP, TSH, LIPID #### [facility] [address] [address] [address] Raf Houston AST [Catalytic activity/Vol] 18 U/L Normal 15-37 [facility] Comment on above: Performed By: #### T 7, CMP, TSH, LIPID #### [facility] [address] [address] [address] Raf Houston Bilirubin [Mass/Vol] 0.6 mg/dL Normal 0.2-1.0 [facility] Comment on above: Performed By: #### T 7, CMP, TSH, LIPID #### [facility] [address] [address] [address] Raf Houston Calcium [Mass/Vol] 8.7 mg/dL Normal 8.5-10.1 [facility] Comment on above: Performed By: #### T 7, CMP, TSH, LIPID #### [facility] [address] [address] [address] Raf Houston Chloride [Moles/Vol] 103 mmol/L Normal 98-107 [facility] Comment on above: Performed By: #### T 7, CMP, TSH, LIPID #### [facility] [address] [address] [address] Raf Houston CO2 [Moles/Vol] 31.6 mmol/L Normal 21.0-32.[address] [facility] Comment on above: Performed By: #### T 7, CMP, TSH, LIPID #### [facility] [address] [place] [address] Dr. Raf Houston Creatinine [Mass/Vol] 0.72 mg/dL Normal 0.55-1.02 [facility] Comment on above: Performed By: #### T 7, CMP, TSH, LIPID #### [facility] [address] [place] [address] Dr. Raf Houston EGFR-AF LAO >60 Normal >=[address] [facility] Comment on above: Performed By: #### T 7, CMP, TSH, LIPID #### [facility] [address] [place] [address] Dr. Raf Houston EGFR-NON AF LAO >60 Normal >=60 [facility] Comment on above: Performed By: #### T 7, CMP, TSH, LIPID #### [facility] [address] [place] [address] Dr. Raf Houston Globulin (S) [Mass/Vol] 3.4 g/dL Normal [facility] Comment on above: Performed By: #### T 7, CMP, TSH, LIPID #### [facility] [address] [place] [address] Dr. Raf Houston Glucose [Mass/Vol] 103 mg/dL Normal 74-106 [facility] Comment on above: Performed By: #### T 7, CMP, TSH, LIPID #### [facility] [address] [place] [address] Dr. Raf Houston Potassium [Moles/Vol] 4.3 mmol/L Normal 3.5-5.1 [facility] Comment on above: Performed By: #### T 7, CMP, TSH, LIPID #### [facility] [address] [place] [address] Dr. Raf Houston Protein [Mass/Vol] 7.2 g/dL Normal 6.1-8.2 [facility] Comment on above: Performed By: #### T 7, CMP, TSH, LIPID #### [facility] [address] [place] [address] Dr. Raf Houston Sodium [Moles/Vol] 140 mmol/L Normal 136-145 [facility] Comment on above: Performed By: #### T 7, CMP, TSH, LIPID #### [facility] [address] [place] [address] Dr. Raf Houston Urea nitrogen [Mass/Vol] 13.0 mg/dL Normal 7.0-18.0 [facility] Comment on above: Performed By: #### T 7, CMP, TSH, LIPID #### [facility] [address] [place] [address] Dr. Raf Houston Urea nitrogen/Creatinine [Mass ratio] 18.1 mg/mg Normal [facility] Comment on above: Performed By: #### T 7, CMP, TSH, LIPID #### [facility] [address] [place] [address] Dr. Raf Houston TSHon 10-08-2021 TSH 0.471 uIU/mL Normal 0.470-4.680 [facility] Comment on above: Performed By: #### T 7, CMP, TSH, LIPID #### [facility] [address] [place] [address] Dr. Raf Houston TSH RANGE SEE BELOW Normal [facility] Comment on above: Result Comment: <0.3 4 UIU/ml HYPERTHYROID 0.34-5.60 UIU/ml EUTHYROID >5.60 UIU/ml HYPOTHYROID Performed By: #### T 7, CMP, TSH, LIPID #### [facility] [address] [place] [address] Dr. Raf Houston Covid-19 PCR (CVDTB)on 04-14 SARS-CoV-2 (COVID-19) RNA NAHED+probe Ql (Unsp spec) Not detected Normal NOT DETECTED [facility] Comment on above: Result Comment: This test is not yet approved or cleared by the [place] FDA. When there are no FDA-approved or cleared tests available, and other criteria are met, FDA can make tests available under an emergency access mechanism called an Emergency Use Authorization (EUA). The EUA for this test is supported by the [place] of Health and Human Service's (HHS's) declaration [...] SARS-CoV-2. Performed By: #### C VDTB #### [facility] [address] [place] [address] Dr. Raf Houston Outside Colonoscopyon 2019 Outside Colonoscopy [id number] 53#1.00CD:127 Normal [facility] Lab Reportson 01-22-2020 Lab Reports [id number] D4#1.00CD:127 Normal [facility] Consent for Procedure/Surger yon 01-02-2020 Consent for Procedure/Surgery [id number]#1.00CD:127 Normal [facility] Facesheeton 01-01-2020 Facesheet [id number] 41#1.00CD:127 Normal [facility] Ambulatory Clinical Summaryo n 12-28-2019 Ambulatory Clinical Summary {[id number] [facility] Consultation Noteon 12-24-19 20 Consultation Note [id number] C7#1.00CD:127 [facility] Lab Reportson 12-24-2019 Lab Reports [id number] 1C#1.00CD:127 [facility] Physician Referralon 020 Physician Referral [id number] 9B#1.00CD:127 [facility] Vital Signs Date Time Vital Sign Value Performing Clinician Facility 10-06-2022 10:45-0400 Body height 165.1 cm Vernon Bajwa Other [facility] Other 10-06-2022 10:45-0400 Body mass index (BMI) [Ratio] 32.61 kg/m2 Vernon Bajwa Other [facility] Other 10-06-2022 10:45-0400 Body weight 88.91 kg Vernon Bajwa Other [facility] Other 10-06-2022 10:45-0400 Diastolic blood pressure 85 mm[Hg] Vernon Bajwa Other [facility] Other 10-06-2022 10:45-0400 Systolic blood pressure 132 mm[Hg] Vernon Bajwa Other [facility] Other 04-07-2022 11:00-0400 Body height 165.1 cm Vernon Bajwa Other [facility] Other 04-07-2022 11:00-0400 Body mass index (BMI) [Ratio] 32.28 kg/m2 Vernon Bajwa Other [facility] Other 04-07-2022 11:00-0400 Body weight 88 kg Vernon Bajwa Other [facility] Other 04-07-2022 11:00-0400 Diastolic blood pressure 89 mm[Hg] Vernon Bajwa Other [facility] Other 04-07-2022 11:00-0400 Systolic blood pressure 127 mm[Hg] Vernon Bajwa Other [facility] Other Encounters Encounter Date Encounter Type Care Provider Facility Start: 11-14-2023 End: 11-14-2023 ambulatory [facility] Start: 08-02-2023 End: 08-02-2023 ambulatory Referral Self Facility:[facility] Start: 10-06-2022 End: 10-06-2022 ambulatory Vernon Bajwa Other [facility] Other Start: 10-06-2022 Office outpatient visit 15 minutes Vernon Bajwa [facility] Start: 04-07-2022 End: 04-07-2022 ambulatory Vernon Garett Other [facility] Other Start: 04-07-2022 Office outpatient visit 15 minutes Vernon Bajwa [facility] Start: 01-14-2022 End: 01-15-2022 ambulatory JULISA JL Facility:[facility] Start: 01-12-2022 End: 01-12-2022 ambulatory Vernon Garett Other [facility] Other Start: 01-12-2022 Telephone encounter Vernon Chasitydean ck [facility] Start: 10-19-2021 End: 10-20-2021 ambulatory JULISA JL Facility:[facility] Start: 10-08-2021 End: 10-09-2021 ambulatory JULISA JL Facility:[facility] Start: 09-20-2021 End: 09-20-2021 ambulatory Ousmane De La Torre Other [facility] Other Start: 09-20-2021 Encounter by josiah De La Torre [facility] Start: 05-05-2021 End: 05-05-2021 ambulatory JULISA ALFARO Facility:[facility] Payers Date Payer Category Payer Self-pay 2022 Unknown [id number] 1961 Medicare [id number] 2.1 [id number] 1959 Unknown [id number] 2.16.8 [id number] 1950 Unknown [id number] 2.16.84 [id number] 1950 Unknown [id number] 2.16.84 [id number] 1950 Unknown [id number] 2.16.84 [id number] 1950 Unknown [id number] 2.16.84 [id number] Unknown [id number] 2.16.8 [id number] Social History Date Type Detail Facility Sex Assigned At [facility] Other Progress note 11-14-2023 Note Date & Type Note Facility 11-14-2023 Note [facility] Cardiology Clinic Note Chief Complaint: New patient [...] RTC following testing Levar Denis MD, MPH, [facility], [facility], [facility] Interventional Cardiology Pager Email: [email or web address] Evaluation note 10-06-2022 Note Date & Type [...] Patient reports feeling well with no dyspepsia [facility] Other Evaluation note 04-07-2022 Note Date & Type Note Facility 04-07-2022 Evaluation note Encounter Date Diagnosis Assessment Notes Mar, GERD (gastroesopha geal reflux disease) (ICD-10 - K21.9) Continue Pantoprazole Mar, Hiatal hernia (ICD-10 - K44.9) Mar, Esophageal spasm (ICD-10 - K22.4) Pt to call if dysphagia returns Mar, Dyspepsia (ICD-10 - R10.13) Start Dicyclomine qid prn Follow up in 6 months [facility] Other Evaluation note 01-12-2022 Note Date & Type Note Facility 01-12-2022 Evaluation note Encounter Date Diagnosis Assessment Notes Jan, Gastro-esophage al reflux disease without esophagitis (ICD-10 - K21.9) [facility] Other Evaluation note Note Date & Type Note Facility Evaluation note No Information [employer] Other History general Narrative - Reported Note Date & Type Note Facility History general Narrative - Reported Type Medical History glaucoma Surgical History left elbow bone spur removal Surgical History gallbladder [facility] Other Summary Purpose Family History No Family History Records FoundNo Family History Records FoundNo Family History Records FoundNo Family History Records Found Advance Directives No Advanced Directives Records FoundNo Advanced Directives Records FoundNo Advanced Directives Records FoundNo Advanced Directives Records Found Additional Source Comments INFORMATION SOURCE (unrecogn ized section and content) DATE CREATED AUTHOR [facility]/11/2020 [facility] DATE CREATED AUTHOR AUTHOR'S ORGANIZ ATION 01/17/2022 [facility] DATE CREATED AUTHOR AUTHOR'S ORGANIZ ATION 08/12/2023 [facility] DATE CREATED AUTHOR AUTHOR'S ORGANIZ ATION 11/14/2023 [facility] REASON FOR VISIT (unrecogniz ed section and content) Update Dennys JoséEMA [place] PPWPATIENT HERE FOR EGD FOLLOW UP ON [...] BE BASED ON THE PRIMARY CLINICAL RECORDS. [employer] provides no warranty or guarantee of the accuracy or completeness of information in this document.
[2023-12-06 11:49] LABS: Magnesium 1.9 mg/dL (1.8-2.4)
== END 2023-12-06 11:35 | disposition home or self-care (01) ==
LOC: LAB 11:35
PROVIDERS: PCP Nurse Practitioner Family; Visit Provider Nurse Practitioner
DX: I48.0 Paroxysmal atrial fibrillation (principal)
CPT/HCPCS: 36415; 83735

== ENCOUNTER 2023-12-22 06:51 | Outpatient (OUT) | payer OTHER, SELFPAY ==
--- NOTE | 2023-12-22 | PCN_ITS ---
CARDIAC STRESS TEST Requesting Physician: Levar Denis M.D. Procedure Date: 12/22/2023 PERFORMING PROVIDER: Aylin Adams M.D. INDICATION: Palpitations, dyspnea, new onset atrial fibrillation. STRESS TEST PROTOCOL: Treadmill stress test with myocardial perfusion imaging, using Marcin protocol. Resting heart rate: 77 Max heart rate: 136 Peak maximal heart rate: 93 Resting blood pressure: 156/86 Maximum blood pressure: 122/88 Exercise time: 4 minutes, 10 seconds Stage reached: 2 METS: 4.20 Reason for termination: Target heart rate met. Heart rate recovery: Normal. Chronotropic response index: 0.87 Functional capacity: Average. Blood pressure: Normal. ST changes: No definite ST changes meeting the criteria for ischemia. Symptoms: None reported. Arrhythmias: Frequent PVCs, couplet. CONCLUSION: 1. Resting EKG is abnormal. 2. There were no definite EKG changes meeting the criteria for ischemia. 3. Patient exercised for 4 minutes, 10 seconds. She reached stage 2 on Marcin protocol, with max METS 4.6. < > (please verify as dictated 4.20 above.) 4. Forrester treadmill score is 4, which portends moderate risk for angiographically significant coronary artery disease. 5. Clinical correlation advised. NAZIA
--- NOTE | 2023-12-22 07:01 | CA_ITS ---
Patient Name: HILDA PARMAR MR#: [id number] : 1950 Exam Date: 12/22/2023 Ordering Doctor: DR REGINA DENIS M.D. ECHOCARDIOGRAM REPORT PROCEDURE: CA ECHO DOPPLER COMPLETE INDICATIONS: Palpitations, FOSTER COMPARISON: None. DESCRIPTION: COMPLETE ECHOCARDIOGRAM Real-time transthoracic echocardiography with 2D, M-mode, spectral and color flow Doppler performed. QUALITY: Technical quality was adequate. LEFT VENTRICLE: Normal chamber size. Mild concentric left ventricular hypertrophy. LV EF: Global left ventricular systolic function is normal. Calculated left ventricular ejection fraction is 66%. No wall motion abnormalities. DIASTOLIC: Normal diastolic function. ATRIAL SEPTUM: Inadequately seen. LEFT ATRIUM: Normal chamber size. RIGHT ATRIUM: Mild dilatation. RIGHT VENTRICLE: Normal chamber size. Normal right ventricular systolic function. TRICUSPID VALVE: Normal mobility and thickness. No stenosis with trivial regurgitation. No evidence of pulmonary hypertension. RVSP 28mmHg MITRAL VALVE: Normal mobility and thickness. No evidence of mitral valve stenosis. Mitral annular calcification. Mild mitral regurgitation. AORTIC VALVE: Normal trileaflet appearance. No visible sclerosis. Normal leaflet mobility. No evidence of aortic valve stenosis. Mild aortic regurgitation. AORTIC ROOT: Normal diameter and appearance. PULMONIC VALVE: Grossly normal. No stenosis. Trivial regurgitation. PERICARDIUM: Anterior free space; trivial effusion versus fat. IVC: Collapses with inspirations. Normal size. CONCLUSION: 1. Global left ventricular systolic function is normal; visually estimated ejection fraction is 60 to 65% 2. Mildly increased left ventricular wall thickness 3. Normal right ventricular size and systolic function 4. Right atrium is mildly dilated 5. Mild mitral regurgitation 6. Mild aortic valve regurgitation 7. Anterior free space; trivial effusion versus fat pad Adult Echocardiography Procedure Report Left Ventricle LVEDD (3.7 - 5.6 cm): 3.89 cm LVESD (2.2 - 4.0 cm): 2.69 cm LVIVS thickness (0.6 - 1.2 cm): 1.21 cm LVPW thickness (0.5 - 1.0 cm): 1.09 cm e': 0.08 m/s E - e': 7.37 LVOT Max Gradient: 3.67 mm[Hg] LVOT Area (cm2): 0.96 m/s Peak Velocity (LVOT): 0.96 m/s Mean Velocity (LVOT): 0.64 m/s LVOT Diameter 2.04 cm Left Ventricular Ejection Fraction: 66.37 % Left Atrium LA Volume Index (2D A2C): 32.45 ml/m2 Left Atrium Systolic Dimension: 2.85 cm Mitral Valve MV E to A Ratio: 0.95 Mitral Valve A-Wave Peak Velocity: 0.64 m/s Mitral Valve E-Wave Peak Velocity: 0.60 m/s Right Ventricle RV Internal Diastolic Dimension: 2.92 cm Aorta AO Root Diam: 3.30 cm Ascending Ao Diam: 2.83 cm Aortic Valve AoV Area (Peak Anthony): 2.40 cm2, 2.40 cm2 AoV Area (VTI): 2.48 cm2, 2.48 cm2 Deceleration Wolfe: 1.34 m/s2 Pressure Half-Time: 934.14 ms Peak Velocity(Antegrade Flow): 1.30 m/s Peak Gradient(Antegrade Flow): 6.74 mm[Hg] Mean Velocity(Antegrade Flow): 0.86 m/s Mean Gradient(Antegrade Flow): 3.37 mm[Hg] Velocity Time Integral: 30.19 cm Tricuspid Valve Peak Velocity (Regurgitant Flow): 2.46 m/s, 2.48 m/s Pulmonic Valve Mean Gradient: 2.20 mm[Hg] Mean Velocity: 0.69 m/s Peak Velocity: 1.15 m/s Peak Gradient: 5.32 mm[Hg] Right Atrium Right Atrium Systolic Pressure: 45.32 ml, 45.32 ml Dictated by: Regina Denis M.D. on 12/22/2023 at 11:06 Approved by: Regina Denis M.D. on 12/22/2023 at 11:08
--- NOTE | 2023-12-22 08:05 | NM_ITS ---
Patient Name: HILDA PARMAR MR#: [id number] : 1950 Exam Date: 12/22/2023 Ordering Doctor: DR Levar Denis M.D. RADIOLOGY REPORT PROCEDURE: NM KATJA PERF SPECT REST STR COMPARISON: None. INDICATIONS: PALPITATIONS, DYSPNEA ON EXERTION TECHNIQUE: Exam Description: Stress/Rest one day protocol gated SPECT Rest Imagin.0 mCi Tc-99m Cardiolite IV on 12/22/2023 Stress Imaging 30.1 mCi Tc-99m Cardiolite IV on 12/22/2023 Exercise Protocol: Marcin Heart Rate (bpm): Rest: 77 Max: 136 PMHR: 93 Blood Pressure: Rest: 156/86 Max: 172/88 Exercise Time: Minutes: 4 Seconds: 10 Stage Reached: Stage: 2 Mets 4.6 Symptoms: Rest and peak stress ECG findings were pending and the exercise portion of the study was pending per attending physician Dr. TRAN . For more details please see separate cardiac stress test report. FINDINGS: QUALITY OF STUDY: Good. PERFUSION DEFECT: None. LOCATION: N/A SIZE: N/A. SEVERITY: N/A. TYPE: N/A. WALL MOTION: Basal anterior. LV SIZE: Normal. 78 mL. TID / TCD: None; 0.7 LVEF: Normal. Calculated EF 76%. SUMMARY: Myocardial perfusion imaging study is NORMAL. CONCLUSION: 1. No reversible ischemia 2. Pending exercise test results Dictated by: Teodoro Erwin MD on 12/23/2023 at 11:54 Approved by: Teodoro Erwin MD on 12/23/2023 at 12:03
--- NOTE | 2023-12-22 15:50 | PC.NURSE ---
Nursing Note Cardiac Stress Test Reviewed: Medication, allergies and patient history reviewed. Stress Test: [x ] Patient tolerated stress test well. [ ] Patient unable to tolerate walking on treadmill. Switched to Lexiscan stress test. [ x] No chest pain noted per patient [ ] Chest pain that resolved prior to leaving stress lab. [ ] No dyspnea noted. [ x] Dyspnea that resolved prior to leaving stress lab. [ x] Patient left stress lab asymptomatic and hemodynamically stable. [ ] Patient taken to the Emergency Room due to non-resolving symptoms following stress test. [ x] Patient achieved target heart rate. [ ] Patient unable to achieve target heart rate. [ ] Aminophylline administered as reversal agent to Lexiscan (Regadenoson). [ ] Nitro administered. Nursing Comments:
== END 2023-12-22 06:52 | disposition home or self-care (01) ==
LOC: CARD 06:51
PROVIDERS: PCP Nurse Practitioner Family; Visit Provider Internal Medicine Interventional Cardiology
DX: R00.2 Palpitations (principal); R06.09 Other forms of dyspnea
CPT/HCPCS: 78452; 93017; 93306; A9500

== ENCOUNTER 2024-02-03 07:55 | Outpatient (OUT) | payer OTHER, SELFPAY ==
--- NOTE | 2024-02-03 08:02 | CT_ITS ---
[address] [address] Patient Name: HILDA PARMAR MRN: [id number] date: 1950 Sex: F Assigned Patient Location: CT Current Patient Location: CT Accession/Order Number: [id number] Exam Date: 02/03/2024 08:05 Report Date: 02/03/2024 10:04 At the request of: KAT PARIKH Procedure: CT lung screening low-dose EXAMINATION: CT lung screening low-dose HISTORY: former smoker Z87.891 COMPARISON: 01/24/2023 TECHNIQUE: Axial, Coronal, and Sagittal images were created without the administration of IV contrast material. Dose reduction techniques were achieved by using automated exposure control and/or adjustment of mA and/or kV according to patient size and/or use of iterative reconstruction technique. FINDINGS: LUNGS: Scattered linear opacities, atelectasis or scar is favored. No new significant pulmonary nodule or mass. Scattered punctate pulmonary nodules are observed PLEURA: No mass, effusion, or pneumothorax. VASCULATURE: No abnormality. MOLLY: No mass or pathologic adenopathy. MEDIASTINUM: No mass or pathologic adenopathy. CARDIAC: No enlargement or pericardial effusion CORONARY ARTERIES: Coronary calcifications are mild. AORTA: No aortic aneurysm. Calcific atherosclerosis CHEST WALL: No mass or axillary adenopathy BONES: No bone lesion or fracture. LIMITED ABDOMEN: No suspicious findings. Limited images of the upper abdomen. OTHER: Negative. CT/CT lung screening low-dose IMPRESSION: LUNG SCREENING: Lung-RADS Category 2- Benign Appearance or Behavior. Nodules with a very low likelihood of becoming a clinically active cancer due to size or lack of growth. 2. Continue annual screening with LDCT in 12 months. Electronically authenticated by: JANNETTE PACHECO Date: 02/03/2024 10:04
--- OUTSIDE RECORDS SUMMARY | 2024-02-03 08:14 | XMS_ITS | CCD ---
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 Name Role Phone Wil Ousmane Unavailable Vernon Bajwa Unavailable [phone] JL, JULISA Admitting Unavailable JL, JULISA [...] Attending Unavailable VernOusmane haro Primary Care Unavailable Jl, Julisa Christina Referring Unavailable Self, Referral Admitting Unavailable [place], EHAB Attending Unavailable NATALY SILVA Attending Unavailable [place], EHAB Attending Unavailable Allergies Allergy Classification Reported Allergen(s) Allergy Type Date of Onset Reaction(s) Facility (2 sources) Codeine; Translations: [CODEINE] Drug Allergy 3 [facility] (1 source) Sulfamethoxazole / Trimethoprim Drug Allergy [facility] (1 source) Sulfamethoxazole / Trimethoprim; Translations: [SULFAMETHOXAZOLE-TR IMETHOPRIM] Drug Allergy 4 [facility] Repository Medications Current Medications Medication [...] Epigastric pain Episodic Cardiac dysrhythmias (2 sources) Paroxysmal atrial fibrillation; Translations: [Paroxysmal atrial fibrillation] Onset: 06-24-202 4 Chronic Cardiac dysrhythmias (2 sources) Bradycardia, unspecified; Translations: [...] Value Interpretation Reference Range Facility Office Visiton 12-29-2023 Follow-up visit [id number] Hilda Matos 1950 Date Provider Department Center 12/29/2023 LEVAR BACH Family History Problem Relation Age of Onset Angina Maternal Grandmother Family Status - Relation Status Age at Maternal Grandmother Level of Service:65754 [place] OFFICE/OUTPATIENT ESTABLISHED LOW MDM 20 MIN Normal [facility] 36on 12-07-2023 36 Regarding lab results from 12/06/2023: Nataly Silva, JUSTINE Duncan MA So let her know CBC normal Kidney function normal, Mag level normal TSH was low but her T4 was within normal-- Make sure her PCP gets these results also please Spoke with patient and made her aware. Faxed lab results to Dr. De La Torre's office. Normal [facility] Telemedicineon 12-05-2023 Telemedicine [id number] Hilda Matos 1950 Provider Department Center 12/05/2023 120-NATALY SILVA Family History Problem Relation Age of Onset Angina Maternal Grandmother Family Status - Relation Status Age at Maternal Grandmother Level of Service:78578 [place] PHYS/QHP TELEPHONE EVALUATION 21-30 MIN Normal [facility] Office Visiton 11-14-2023 Follow-up visit [id number] Hilda Matos 1950 Provider Department Center 11/14/2023 LEVAR BACH Family History Problem Relation Age of Onset Angina Maternal Grandmother Family Status - Relation Status Age at Maternal Grandmother Level of Service:77436 [place] OFFICE/OUTPATIENT NEW MODERATE MDM 45 MINUTES Normal [facility] MM screening mammo BI w/CADo n 02-20-2024 MM screening mammo BI w/CAD [facility] [place] [address] [place] [address] Mammography Report Signed Patient: Hilda Matos MR#: [id number] : 1950 Acct:[id number] Age/Sex: 73 / F ADM Date: 08/02/23 Loc: [place] Room: Type: [facility] Attending Dr: Referral Self Copies to: MD Julisa Daniels, EZE SELF,REFERRAL Ordering Provider: SELF,REFERRAL Date of Service: [...] Jayjay Somers M.D.08/02/2023 10:43 AM Dictation Location: [facility] Transcribed By: [facility] 08/02/23 1043 Dictated By: Jayjay Somers DO 08/02/23 1041 Signed By: 08/02/23 1043 [facility] CT CHEST WO CONon 01-14-2022 CT CHEST [...] INSULINon 10-09-2021 Insulin 5.2 uIU/mL Normal 2.6-24.9 [facility] Comment on above: Performed By: #### I NSULIN #### [facility] [address] [place] [address] Dr. Raf Houston CBC AUTO DIFFon 10-08-2021 BASO # 0.1 103/ul Normal 0.0-0.1 [facility] Comment on above: Performed By: #### C BC #### [facility] [address] [place] [address] Dr. Raf Houston Basophils/100 WBC (Bld) 1.1 % Normal 0.2-2.0 [facility] Comment on above: Performed By: #### C BC #### [facility] [address] [place] [address] Dr. Raf Houston EO # 0.1 103/ul Normal 0.0-0.7 [facility] Comment on above: Performed By: #### C BC #### [facility] [address] [place] [address] Dr. Raf Houston Eosinophils/100 WBC (Bld) 1.6 % Normal 0.9-7.0 [facility] Comment on above: Performed By: #### C BC #### [facility] [address] [place] [address] Dr. Raf Houston Erythrocyte distribution width (RBC) [Ratio] 13.2 % Normal 11.0-15.0 [facility] Comment on above: Performed By: #### C BC #### [facility] [address] [place] [address] Dr. Raf Houston Hematocrit (Bld) [Volume fraction] 45.2 % Normal 36.0-48.0 [facility] Comment on above: Performed By: #### C BC #### [facility] [address] [place] [address] Dr. Raf Houston Hemoglobin (Bld) [Mass/Vol] 14.9 g/dL Normal 12.0-16.0 [facility] Comment on above: Performed By: #### C BC #### [facility] [address] [place] [address] Dr. Raf Houston IG # 0.01 10e3/ul Normal 0.00-0.03 [facility] Comment on above: Performed By: #### C BC #### [facility] [address] [place] [address] Dr. Raf Housotn IG % 0.2 % Normal 0.0-0.5 [facility] Comment on above: Performed By: #### C BC #### [facility] [address] [place] [address] Dr. Raf Houston LYMPH # 1.5 103/ul Normal 1.2-3.8 [facility] Comment on above: Performed By: #### C BC #### [facility] [address] [place] [address] Dr. Raf Houston Lymphocytes/100 WBC (Bld) 33.9 % Normal 20.5-60.0 [facility] Comment on above: Performed By: #### C BC #### [facility] [address] [place] [address] Dr. Raf Houston MANUAL DIFF REQ NO Normal [facility] Comment on above: Performed By: #### C BC #### [facility] [address] [place] [address] Dr. Raf Houston MCH (RBC) [Entitic mass] 30.6 pg Normal 26.7-34.0 [facility] Comment on above: Performed By: #### C BC #### [facility] [address] [place] [address] Dr. Raf Houston MCHC (RBC) [Mass/Vol] 33.0 g/dL Normal 29.9-35.2 [facility] Comment on above: Performed By: #### C BC #### [facility] [address] [place] [address] Dr. Raf Houston MCV (RBC) [Entitic vol] 92.8 fL Normal 81.0-99.0 [facility] Comment on above: Performed By: #### C BC #### [facility] [address] [place] [address] Dr. Raf Houston MONO # 0.5 103/ul Normal 0.3-0.8 [facility] Comment on above: Performed By: #### C BC #### [facility] [address] [place] [address] Dr. Raf Houston Monocytes/100 WBC (Bld) 11.0 % Normal 1.7-12.0 [facility] Comment on above: Performed By: #### C BC #### [facility] [address] [place] [address] Dr. Raf Houston NEUT # 2.3 103/ul Normal 1.4-6.5 [facility] Comment on above: Performed By: #### C BC #### [facility] [address] [place] [address] Dr. Raf Houston Neutrophils/100 WBC (Bld) 52.2 % Normal 43.0-75.0 [facility] Comment on above: Performed By: #### C BC #### [facility] [address] [place] [address] Dr. Raf Houston Platelet mean volume (Bld) [Entitic vol] 9.6 fL Normal 9.5-13.5 [facility] Comment on above: Performed By: #### C BC #### [facility] [address] [address] [address] Raf Houston PLT 215 103/ul Normal 150-450 [facility] Comment on above: Performed By: #### C BC #### [facility] [address] [address] [address] Raf Houston RBC 4.87 106/ul Normal 4.20-5.40 [facility] Comment on above: Performed By: #### C BC #### [facility] [address] [address] [address] Raf Houston WBC 4.5 103/ul Normal 4.0-11.0 [facility] Comment on above: Performed By: #### C BC #### [facility] [address] [address] [address] Raf Houston FREE THYROXINE INDEX T7on FTI 3.61 Normal [facility] Comment on above: Performed By: #### T 7, CMP, TSH, LIPID #### [facility] [address] [place] [address] Dr. Raf Houston T3U 41.0 % Critically high 23.5-40.5 [facility] Comment on above: Performed By: #### T 7, CMP, TSH, LIPID #### [facility] [address] [address] [address] Raf Houston T4 [Mass/Vol] 8.80 ug/dL Normal 4.80-13.90 [facility] Comment on above: Performed By: #### T 7, CMP, TSH, LIPID #### [facility] [address] [place] [address] Dr. Raf Houston GLYCOHEMOGLOBIN A1Con 2021 ADA RECOMMENDATION SEE BELOW Normal [facility] Comment on above: Result Comment: ADA RECOMMENDED LIMIT 4.0 - 6.0 ADA THERAPEUTIC TARGET < 7.0 ACTION SUGGESTED > 7.0 Performed By: #### A 1C #### [facility] [address] [place] [address] Dr. Raf Houston Glucose [Mass/Vol] 111 mg/dL Normal [facility] Comment on above: Performed By: #### A 1C #### [facility] [address] [address] [address] Raf Houston HbA1c (Bld) [Mass fraction] 5.5 % Normal 4.5-6.2 [facility] Comment on above: Performed By: #### A 1C #### [facility] [address] [address] [address] Raf Houston IRONon 10-08-2021 Iron [Mass/Vol] 139.0 ug/dL Normal 50.0-170.0 [facility] Comment on above: Performed By: #### I ISABEL #### [facility] [address] [address] [address] Raf Houston LIPID PROFILEon 10-08-2021 CHOL-HDL RATIO NORM SEE BELOW Normal [facility] Comment on above: Result Comment: 3.3 - 4.4 LOW RISK 4.4 - 7.1 AVERAGE RISK 7.1 - 11.0 MODERATE RISK >11.0 HIGH RISK Performed By: #### T 7, CMP, TSH, LIPID #### [facility] [address] [place] [address] Dr. Raf Houston Cholesterol [Mass/Vol] 189 mg/dL Normal <=200 [facility] Comment on above: Performed By: #### T 7, CMP, TSH, LIPID #### [facility] [address] [place] [address] Dr. Raf Houston Cholesterol in HDL [Mass/Vol] 63 mg/dL Critically high 40-60 [facility] Comment on above: Performed By: #### T 7, CMP, TSH, LIPID #### [facility] [address] [place] [address] Dr. Raf Houston Cholesterol in LDL [Mass/Vol] 110.0 mg/dL Normal [facility] Comment on above: Performed By: #### T 7, CMP, TSH, LIPID #### [facility] [address] [place] [address] Dr. Raf Houston Cholesterol.total/Cho lesterol in HDL [Mass ratio] 3.0 {ratio} Normal [facility] Comment on above: Performed By: #### T 7, CMP, TSH, LIPID #### [facility] [address] [address] [address] Raf Houston HDL NORMAL > or = 60 mg/dl - LOW CARDIOVASCULAR RISK <40 mg/dl - HIGH CARDIOVASCULAR RISK Normal [facility] Comment on above: Performed By: #### T 7, CMP, TSH, LIPID #### [facility] [address] [address] [address] Raf Houston LDL CALC NORMAL SEE BELOW Normal [facility] Comment on above: Result Comment: <100 mg/dl OPTIMAL 100 - 129 mg/dl NEAR OR ABOVE OPTIMAL 130 - 159 mg/dl BORDERLINE HIGH 160 - 189 mg/dl HIGH >190 mg/dl VERY HIGH Performed By: #### T 7, CMP, TSH, LIPID #### [facility] [address] [address] [address] Raf Houston Triglyceride [Mass/Vol] 80 mg/dL Normal <=150 [facility] Comment on above: Performed By: #### T 7, CMP, TSH, LIPID #### [facility] [address] [address] [address] Raf Houston VLDL CALC 16.0 mg/dL Normal [facility] Comment on above: Performed By: #### T 7, CMP, TSH, LIPID #### [facility] [address] [address] [address] Raf Houston PROF 14(COMP METB)on 022 Albumin [Mass/Vol] 3.8 g/dL Normal 3.4-5.0 [facility] Comment on above: Performed By: #### T 7, CMP, TSH, LIPID #### [facility] [address] [address] [address] Raf Houston Albumin/Globulin [Mass ratio] 1.1 {ratio} Normal [facility] Comment on above: Performed By: #### T 7, CMP, TSH, LIPID #### [facility] [address] [address] [address] Raf Houston ALP [Catalytic activity/Vol] 72 U/L Normal 46-116 [facility] Comment on above: Performed By: #### T 7, CMP, TSH, LIPID #### [facility] [address] [address] [address] Raf Houston ALT [Catalytic activity/Vol] 35 U/L Normal 14-59 [facility] Comment on above: Performed By: #### T 7, CMP, TSH, LIPID #### [facility] [address] [address] [address] Raf Houston Anion gap [Moles/Vol] 9.7 mmol/L Normal [facility] Comment on above: Performed By: #### T 7, CMP, TSH, LIPID #### [facility] [address] [address] [address] Raf Houston AST [Catalytic activity/Vol] 18 U/L Normal 15-37 [facility] Comment on above: Performed By: #### T 7, CMP, TSH, LIPID #### [facility] [address] [place] [address] Dr. Raf Houston Bilirubin [Mass/Vol] 0.6 mg/dL Normal 0.2-1.0 [facility] Comment on above: Performed By: #### T 7, CMP, TSH, LIPID #### [facility] [address] [address] [address] Raf Houston Calcium [Mass/Vol] 8.7 mg/dL Normal 8.5-10.1 [facility] Comment on above: Performed By: #### T 7, CMP, TSH, LIPID #### [facility] [address] [address] [address] aRf Houston Chloride [Moles/Vol] 103 mmol/L Normal 98-107 [facility] Comment on above: Performed By: #### T 7, CMP, TSH, LIPID #### [facility] [address] [address] [address] Raf Houston CO2 [Moles/Vol] 31.6 mmol/L Normal 21.0-32.0 [facility] Comment on above: Performed By: #### T 7, CMP, TSH, LIPID #### [facility] [address] [address] [address] Raf Houston Creatinine [Mass/Vol] 0.72 mg/dL Normal 0.55-1.02 [facility] Comment on above: Performed By: #### T 7, CMP, TSH, LIPID #### [facility] [address] [place] [address] Dr. Raf Houston EGFR-AF GABONESE >60 Normal >=60 [facility] Comment on above: Performed By: #### T 7, CMP, TSH, LIPID #### [facility] [address] [address] [address] Raf Houston EGFR-NON AF GABONESE >60 Normal >=60 [facility] Comment on above: Performed By: #### T 7, CMP, TSH, LIPID #### [facility] [address] [place] [address] Dr. Raf Houston Globulin (S) [Mass/Vol] 3.4 g/dL Normal [facility] Comment on above: Performed By: #### T 7, CMP, TSH, LIPID #### [facility] [address] [place] [address] Dr. Raf Houston Glucose [Mass/Vol] 103 mg/dL Normal 74-106 [facility] Comment on above: Performed By: #### T 7, CMP, TSH, LIPID #### [facility] [address] [place] [address] Dr. Raf Houston Potassium [Moles/Vol] 4.3 mmol/L Normal 3.5-5.1 [facility] Comment on above: Performed By: #### T 7, CMP, TSH, LIPID #### [facility] [address] [place] [address] Dr. Raf Houston Protein [Mass/Vol] 7.2 g/dL Normal 6.1-8.2 [facility] Comment on above: Performed By: #### T 7, CMP, TSH, LIPID #### [facility] [address] [place] [address] Dr. Raf Houston Sodium [Moles/Vol] 140 mmol/L Normal 136-145 [facility] Comment on above: Performed By: #### T 7, CMP, TSH, LIPID #### [facility] [address] [address] [address] Raf Houston Urea nitrogen [Mass/Vol] 13.0 mg/dL Normal 7.0-18.0 [facility] Comment on above: Performed By: #### T 7, CMP, TSH, LIPID #### [facility] [address] [place] [address] Dr. Raf Houston Urea nitrogen/Creatinine [Mass ratio] 18.1 mg/mg Normal [facility] Comment on above: Performed By: #### T 7, CMP, TSH, LIPID #### [facility] [address] [address] [address] Raf Houston TSHon 10-08-2021 TSH 0.471 uIU/mL Normal 0.470-4.680 [facility] Comment on above: Performed By: #### T 7, CMP, TSH, LIPID #### [facility] [address] [place] [address] Dr. Raf Houston TSH RANGE SEE BELOW Normal [facility] Comment on above: Result Comment: <0.3 4 UIU/ml HYPERTHYROID 0.34-5.60 UIU/ml EUTHYROID >5.60 UIU/ml HYPOTHYROID Performed By: #### T 7, CMP, TSH, LIPID #### [facility] [address] [place] [address] Dr. Raf Houston [facility] 04-14 SARS-CoV-2 (COVID-19) RNA NAHED+probe Ql (Unsp [...] for this test is supported by the [employer] of Health and Human Service's (HHS's) declaration [...] consistent with SARS-CoV-2. Performed By: #### C [facility] #### [facility] [address] [place] [address] Dr. Raf Houston Outside Colonoscopyon 2019 Outside Colonoscopy [id number] 53#1.00CD:127 [facility] Lab Reportson 01-22-2020 Lab Reports [id number] D4#1.00CD:127 [facility] Consent for Procedure/Surger yon 01-02-2020 Consent for Procedure/Surgery [id number] 5D#1.00CD:127 [facility] Facesheeton 01-01-2020 Facesheet [id number] 41#1.00CD:127 [facility] Ambulatory Clinical Summaryo n 12-28-2019 Ambulatory Clinical Summary {[id number] [facility] Consultation Noteon 12-24-19 20 Consultation Note [id number] C7#1.00CD:127 [facility] Lab Reportson 12-24-2019 Lab Reports [id number] 1C#1.00CD:127 [facility] Physician Referralon 020 Physician Referral [id number] 9B#1.00CD:127 [facility] Vital Signs Date Time Vital Sign Value Performing Clinician Facility 10-06-2022 10:45-0400 Body height 165.1 cm Vernon Bajwa Other [facility] Other 10-06-2022 10:45-0400 Body mass index (BMI) [Ratio] 32.61 kg/m2 Vernon Bajwa Other [facility] Other 10-06-2022 10:45-0400 Body weight 88.91 kg Vernon Garett Other [facility] Other 10-06-2022 10:45-0400 Diastolic blood pressure 85 mm[Hg] Vernon Garett Other [facility] Other 10-06-2022 10:45-0400 Systolic blood pressure 132 mm[Hg] Vernon Bajwa Other [facility] Other 04-07-2022 11:00-0400 Body height 165.1 cm Vernon Bajwa Other [facility] Other 04-07-2022 11:00-0400 Body mass index (BMI) [Ratio] 32.28 kg/m2 Vernon Bajwa Other [facility] Other 04-07-2022 11:00-0400 Body weight 88 kg Vernon Garett Other [facility] Other 04-07-2022 11:00-0400 Diastolic blood pressure 89 mm[Hg] Vernon Garett Other [facility] Other 04-07-2022 11:00-0400 Systolic blood pressure 127 mm[Hg] Vernon Garett Other [facility] Other Encounters Encounter Date Encounter Type Care Provider Facility Start: 12-29-2023 End: 12-29-[address] [facility] Start: 12-05-2023 End: 12-05-2023 ambulatory NATALY SILVA [facility] Start: 11-14-2023 End: 11-14-[address] [facility] Start: 08-02-2023 End: 08-02-2023 ambulatory Referral Self Facility:[facility] Start: 10-06-2022 End: 10-06-2022 ambulatory Vernon Bajwa Other [facility] Other Start: 10-06-2022 Office outpatient visit 15 minutes Vernon Bajwa [facility] Start: 04-07-2022 End: 04-07-2022 ambulatory Vernon Bajwa Other [facility] Other Start: 04-07-2022 Office outpatient visit 15 minutes Vernon Bajwa [facility] Start: 01-14-2022 End: 01-15-2022 ambulatory JULISA PARIKH Facility:[facility] Start: 01-12-2022 End: 01-12-2022 ambulatory Vernon Bajwa Other [facility] Other Start: 01-12-2022 Telephone encounter Vernon Sewell [facility] Start: 10-19-2021 End: 10-20-2021 ambulatory JULISA PARIKH Facility:[facility] Start: 10-08-2021 End: 10-09-2021 ambulatory JULISA PARIKH Facility:[facility] Start: 09-20-2021 End: 09-20-2021 ambulatory Ousmane De La Torre Other [facility] Other Start: 09-20-2021 Encounter by josiah De La Torre [facility] Start: 05-05-2021 End: 05-05-2021 ambulatory JULISA PARIKH Facility:[facility] Payers Date Payer Category Payer Self-pay 2022 Unknown [id number] 1961 Medicare [id number] 2.1 [id number] 1961 Unknown [id number] 2.16.8 [id number] 1950 Unknown [id number] 2.16.84 [id number] 1950 Unknown [id number] 2.16.84 [id number] 1950 Unknown [id number] 2.16.84 [id number] 1950 Unknown [id number] 2.16.84 [id number] Unknown [id number] 2.16.8 [id number] Social History Date Type Detail Facility Sex Assigned At [email or web address] Other Clinical Notes 01-12-2022 to 12-29-2023 Note Date & Type Note Facility 12-29-2023 Note [facility] Cardiology Clinic Note Chief Complaint: New patient here to establish care. Ref from Julisa Parikh CNP for bradycardia. She wore Holter monitor recently. Denies chest pain. Does get FOSTER and palpitations. Former smoker. HPI: Hilda Matos is a 73 y.o. female With a [...] Positive for dyspnea on exertion and palpitations. Respiratory: Positive for shortness of breath. Musculoskeletal: Positive for arthritis, back pain, joint pain and myalgias. Neurological: Positive for dizziness and light-headedness. All other systems reviewed and are negative. Past Medical History She has a past medical history of Abnormal ECG and Bradycardia. Surgical History She has a past surgical history that includes Cholecystectomy. Social History She reports that she quit smoking about 25 years ago. Her smoking use included cigarettes. She has never used smokeless tobacco. She reports current alcohol use of about 7.0 standard drinks of alcohol per week. No history on file for drug use. Family History Family History Problem Relation Name Age of Onset Angina Maternal Grandmother Allergies Codeine and Sulfamethoxazole-trimethoprim Medications Current Outpatient Medications: albuterol 90 mcg/actuation inhaler, every 4 (four) hours., Disp: , Rfl: ALPRAZolam (Xanax) 0.25 mg tablet, Take 0.25 mg by mouth if needed at bedtime., Disp: , Rfl: apixaban (Eliquis) 5 mg tablet, Take 1 tablet (5 mg) by mouth in the morning and at bedtime., Disp: 60 tablet, Rfl: 11 dorzolamide-timoloL (Cosopt) 22.3-6.8 mg/mL ophthalmic solution, Administer 1 drop into both eyes in the morning and at bedtime., Disp: , Rfl: levothyroxine (Synthroid, Levoxyl) 137 mcg tablet, , Disp: , Rfl: pantoprazole (ProtoNix) 40 mg EC tablet, 1 (one) time each day at the same time., Disp: , Rfl: Last Recorded Vitals BP 124/80 (BP Location: Left arm, Patient Position: Sitting, BP Cuff Size: Large adult) Pulse 82 Resp 18 Ht 1.651 m (5' 5 ) Wt 88.5 kg (195 lb 3.2 oz) SpO2 98% BMI 32.48 kg/m??? Physical Examination: GENERAL: alert and oriented [...] 12 lead EK11/14/2023 NSR, LAFB, abnormal ECG Echocardiogram 12/2023: Global left ventricular systolic function is normal; EF is 60 to 65% Mildly increased left ventricular wall thickness Normal right ventricular size and systolic function The right atrium is mildly dilated Mild mitral and aortic regurgitation Anterior free space; trivial effusion versus fat pad Stress test 12/23/2023: No ischemic EKG changes; Forrester treadmill score is 4 No reversible ischemia 30-day event monitor; sinus rhythm, probable atrial fibrillation with rapid ventricular response, episodes of paroxysmal supraventricular tachycardia TSH is low at 0.113, free T4 is borderline high at 1.41 with upper range of normal being 1.46 Assessment: Palpitations Paroxysmal atrial fibrillation; [id number] score of 3 Dyspnea on exertion Evidence of 2-1 AV block Supraventricular tachycardia Ventricul (more content not included)... [facility] 12-05-2023 Note Labs for TSH with reflex T4 orde red [facility] 12-05-2023 Note [id number] = 3 poi nts Age, Female D/w pt the risk of stroke with paroxysmal a fib Stroke risk 3.2%/year in > 90,000 pts and 4.6 % risk of stroke/TIA/Systemic embolism, pt voiced understanding. D/W pt anticoagulation for risk of stroke and she denied having surgery in last 3-6 months, denied any h/o bleeding issues, or hemorrhagic bleed/stroke. Recommended eliquis 5 mg po bid and to monitor for any bleeding tendencies- and she voiced understanding and agreement. Script for CBC, CMP, TSH, Mag levels ordered to assess thyroid function, blood count, renal, liver function and electrolytes. RTC as scheduled with Dr Denis, staff notified to call [facility] about her TTE and stress test to be scheduled. [facility] 12-05-2023 Note Telemedicine visit p er Dr. Denis to discuss starting anticoagulation. He saw her a few weeks ago and ordered 30 day event monitor, stress test, and echo. The office received a serious alert on the monitor on 11/28/2023. Stress test and echo have not been scheduled yet. Patient denies chest pain, SOB, palpitations, and lightheadedness/syncope. Review of Systems Musculoskeletal: Positive for arthritis, back pain, joint pain and myalgias. All other systems reviewed and are negative. [facility] 12-05-2023 Note [facility] CARDIOLOGY PROGR ESS NOTE Hilda Matos is a 73 y.o. female here for review of event monitor, and noted a fib Date of phone call: 12/05/2023 Paroxysmal A fib, palpitations HPI 73 yo female presented via Audio telehealth for appointment to discuss noted a fib on event monitor on 11/28/23 at 7 am for about 15 minutes. She admits occasional palpitations/fluttering- but none lately. Denied chest pain, SOB, orthopnea, lightheadedness, dizziness or syncope. She has known hypothyroidism managed with synthroid per PCP. Last TSH level was January 2023. Telemedicine visit per Dr. Denis to discuss starting anticoagulation. He saw her a few weeks ago and ordered 30 day event monitor, stress test, and echo. The office received a serious alert on the monitor on 11/28/2023. Stress test and echo have not been scheduled yet. Review of Systems Musculoskeletal: Positive for arthritis, back pain, joint pain and myalgias. All other systems reviewed and are negative. Total time spent in Medical Discussion including obtaining history from the patient, review of labs, tests with the patient, discussion of assessment and plan: 30 minutes. Office Patient Home The visit was initiated by the patient and conducted [id number] with use of audio-only real time telephone communication between patient and provider for a virtual visit. Verbal consent to provide and bill for this service was obtained on 12/05/2023. Diagnoses and all orders for this visit: Paroxysmal atrial fibrillation (CMS/HCC) - apixaban (Eliquis) 5 mg tablet; Take 1 tablet (5 mg) by mouth in the morning and at bedtime. - TSH3 Reflex to FT4; Future - Magnesium; Future - Comprehensive metabolic panel; Future - CBC; Future Acquired hypothyroidism Visit Vitals BP 156/87 Pulse 81 Ht 1.651 m (5' 5 ) Wt 88.5 kg (195 lb) BMI 32.45 kg/m??? Smoking Status Former BSA 2.01 m??? Allergies Allergen Reactions Codeine Other Sulfamethoxazole-Trimethoprim Other Medications: Current Outpatient Medications on File Prior to Visit Medication Sig Dispense Refill albuterol 90 mcg/actuation inhaler every 4 (four) hours. ALPRAZolam (Xanax) 0.25 mg tablet Take 0.25 mg by mouth if needed at bedtime. levothyroxine (Synthroid, Levoxyl) 137 mcg tablet pantoprazole (ProtoNix) 40 mg EC tablet 1 (one) time each day at the same time. No current facility-administered medications on file prior to visit. Physical Exam: Constitutional: Appearance: Normal appearance. Without apparent distress Psychiatric: Mood and Affect: Mood normal. Behavior: Behavior normal. Thought Content: Thought content normal. Judgment: Judgment normal. Labs: 01/13/23 CBC normal NA 139, K+ 4.1- normal BUN 15, CR 0.68- GFR > 60 - normal A1C 5.3 normal Liver function normal Chol 172, Trig 92, LDL 93, HDL 61- well controlled TSH 0.143- low, T4 and T3 normal Last lab values have been reviewed CV Testing: No echocardiogram results found for the past 12 months Assessment/Plan: Paroxysmal atrial fibrillation (CMS/HCC) [id number] = 3 points Age, Female D/w pt the risk of stroke with paroxysmal a fib Stroke risk 3.2%/year in > 90,000 pts and 4.6 % risk of stroke/TIA/Systemic embolism, pt voiced understanding. D/W pt anticoagulation for risk of stroke and she denied having surgery in last 3-6 months, denied any h/o bleeding issues, or hemorrhagic bleed/stroke. Recommended eliquis 5 mg po bid and to monitor for any bleeding tendencies- and she voiced understanding and agreement. Script for CBC, CMP, TSH, Mag levels ordered to assess thyroid function, blood count, renal, liver function and electrolytes. RTC as scheduled with Dr Denis, staff notified to call [facility] about her TTE and stress test to be scheduled. Hypothyroidism Labs for TSH with reflex T4 ordered [facility] 11-14-2023 Note [facility] Cardiology Clinic Note Chief Complaint: New patient here to establish care. Ref from Julisa Parikh CNP for bradycardia. She wore Holter monitor recently. Denies chest pain. Does get FOSTER and palpitations. Former smoker. HPI: Hilda Matos is a 73 y.o. female With a [...] RTC following testing Levar Denis MD, MPH, FACC, [facility], [facility] Interventional Cardiology Pager Email: [email or web address] 10-06-2022 Evaluation note Encounter Date Diagnosis Assessment Notes Sep, GERD (gastroesopha geal reflux disease) (ICD-10 - K21.9) Patient reports feeling well with no heartburn. Patient is watching her diet & avoiding foods that trigger her symptoms. Continue Pantioprazole without change, Return visit in one year Sep, Esophageal spasm (ICD-10 - K22.4) Sep, Dyspepsia (ICD-10 - K30) Patient reports feeling well with no dyspepsia [email or web address] Other 10-26-2022 Evaluation note* Encounter Date Diagnosis Assessment Notes Treatment Notes Treatment Clinical Notes Mar, GERD (gastroesophageal reflux disease) (ICD-10 - K21.9) Continue Pantoprazole Mar, Hiatal hernia (ICD-10 - K44.9) Mar, Esophageal spasm (ICD-10 - K22.4) Pt to call if dysphagia returns Mar, Dyspepsia (ICD-10 - R10.13) Start Dicyclomine qid prn Follow up in 6 months [email or web address] Other 08-02-2022 Evaluation note* Encounter Date Diagnosis Assessment Notes Treatment Notes Treatment Clinical Notes Jan, Gastro-esophageal reflux disease without esophagitis (ICD-10 - K21.9) [email or web address] Other Evaluation noteNo InformationNort reMail Other History general Narrative - Reported* Type Description Date Medical History glaucoma Surgical History left elbow bone spur removal Surgical History gallbladder [email or web address] Other Summary Purpose Family History No Family History Records FoundNo Family History Records FoundNo Family History Records FoundNo Family History Records Found Advance Directives No Advanced Directives Records FoundNo Advanced Directives Records FoundNo Advanced Directives Records FoundNo Advanced Directives Records Found Additional Source Comments INFORMATION SOURCE (unrecogn ized section and content) DATE CREATED AUTHOR 02/11/2020 [place] [facility] DATE CREATED AUTHOR AUTHOR'S ORGANIZ ATION 01/17/2022 [facility] DATE CREATED AUTHOR AUTHOR'S ORGANIZ ATION 08/12/2023 [facility] DATE CREATED AUTHOR AUTHOR'S ORGANIZ ATION 01/01/2024 [facility] REASON FOR VISIT (unrecogniz ed section and content) Update Dennys [facility] PPWPATIENT HERE FOR EGD FOLLOW UP ON [...] BE BASED ON THE PRIMARY CLINICAL RECORDS. [facility] [employer]. provides no warranty or guarantee of the accuracy or completeness of information in this document.
== END 2024-02-03 07:56 | disposition home or self-care (01) ==
LOC: CT 07:55
PROVIDERS: PCP Nurse Practitioner Family; Visit Provider Nurse Practitioner Family
DX: Z87.891 Personal history of nicotine dependence (principal)
CPT/HCPCS: 71271

== ENCOUNTER 2024-04-05 10:33 | Outpatient (OUT) | payer OTHER, SELFPAY ==
--- OUTSIDE RECORDS SUMMARY | 2024-04-05 10:38 | XMS_ITS | CCD ---
Author Organization [facility] Care Team Providers Care Postal Sorting Officer Name Role Phone Wil Ousmane Unavailable Vernon Bajwa Unavailable [phone] JL, JULISA Admitting Unavailable JL, JULISA [...] EHAB Attending Unavailable NATALY SILVA Attending Unavailable ELTASADA, EHAB Attending Unavailable CRISTIAN SINGH Attending Unavailable Allergies Allergy Classification Reported Allergen(s) Allergy Type Date of Onset Reaction(s) Facility (2 sources) Codeine; Translations: [CODEINE] Drug Allergy 3 [facility] Repository (1 source) Sulfamethoxazole / Trimethoprim Drug Allergy [facility] Repository (1 source) Sulfamethoxazole / Trimethoprim; Translations: [SULFAMETHOXAZOLE-TR IMETHOPRIM] Drug Allergy 4 [facility] Repository Medications Current Medications Medication Drug [...] atrial fibrillation; Translations: [Paroxysmal atrial fibrillation] Onset: 4 Chronic Cardiac dysrhythmias (4 sources) Palpitations; Translations: [Bradycardia, unspecified] Onset: 4 Episodic Conduction [...] (2 sources) Dysphagia; Translations: [Dysphagia, unspecified] Episodic Screening and history of mental health [...] fatigue; Translations: [OTHER FATIGUE] Onset: 10-08-2021 Episodic Other lower respiratory disease (2 sources) Shortness of breath; Translations: [Shortness of breath] Onset: 11-14-2023 Episodic Unclassified (1 source) CONTACT W/AND (SUSP) EXPOS COVID-19; Translations: [CONTACT W/AND (SUSP) EXPOS COVID-19] Onset: 05-05-2021 Results Test Name Value Interpretation Reference Range Facility Office Visiton 03-20-2024 Follow-up visit [id number] Hilda Matos 1950 Date Provider Department Center 03/20/2024 CRISTIAN BEAN MARY De Dios Family History Problem Relation Age of Onset Angina Maternal Grandmother Family Status - Relation Status Age at Maternal Grandmother Level of Service:56368 ME OFFICE/OUTPATIENT NEW MODERATE MDM 45 MINUTES Normal [facility] Office Visiton 12-29-2023 Follow-up visit [id number] Hilda Matos 1950 Provider Department Center 12/29/2023 LEVAR BACH MARY [facility] Family History Problem Relation Age of Onset Angina Maternal Grandmother Family Status - Relation Status Age at Maternal Grandmother Level of Service:51098 ME OFFICE/OUTPATIENT ESTABLISHED LOW MDM 20 MIN Normal [facility] 36on 12-07-2023 36 Regarding lab results from 12/06/2023: JUSTINE River MA So let her know CBC normal Kidney function normal, Mag level normal TSH was low but her T4 was within normal-- Make sure her PCP gets these results also please Spoke with patient and made her aware. Faxed lab results to Dr. De La Torre's office. Normal [facility] Telemedicineon 12-05-2023 Telemedicine [id number] Hilda Matos 1950 Provider Department Center 12/05/2023 Shadi-NATALY SILVA MARY De Dios Family History Problem Relation Age of Onset Angina Maternal Grandmother Family Status - Relation Status Age at Maternal Grandmother Level of Service:30722 ME PHYS/QHP TELEPHONE EVALUATION 21-30 MIN Normal [facility] Office Visiton 11-14-2023 Follow-up visit [id number] Hilda Matos 1950 F Date Provider Department Center 11/14/2023 LEVAR BACH CARD [facility] Family History Problem Relation Age of Onset Angina Maternal Grandmother Family Status - Relation Status Age at Maternal Grandmother Level of Service:54708 ME OFFICE/OUTPATIENT NEW MODERATE MDM 45 MINUTES Normal [facility] MM screening mammo BI w/CADo n 08-02-2023 MM screening mammo BI w/CAD [facility] Main [place] [address] [place] [address] Mammography Report Signed Patient: Hilda Matos MR#: [id number] : 1950 Acct:[id number] Age/Sex: 73 / F ADM Date: 08/02/23 Loc: [place] Room: Type: [facility] Attending Dr: Referral Self Copies to: MD Julisa Daniels, HIRE CAR DRIVER SELF,REFERRAL Ordering Provider: SELF,REFERRAL Date of Service: [...] Jayjay Somers M.D.08/02/2023 10:43 AM Dictation Location: [facility] Transcribed By: [facility] 08/02/23 1043 Dictated By: Jayjay Somers DO 08/02/23 1041 Signed By: 08/02/23 1043 Normal [facility] CT CHEST WO CONon 01-14-2022 CT CHEST [...] ROBERTA COLLAZO Date: 2022-01-14 16:24 Normal [facility] INSULINon 10-09-2021 Insulin 5.2 uIU/mL Normal 2.6-24.9 [facility] Comment on above: Performed By: #### I NSULIN #### [facility] [address] [place] [address] Dr. Raf Houston CBC AUTO DIFFon 10-08-2021 BASO # 0.1 103/ul Normal 0.0-0.1 [facility] Comment on above: Performed By: #### C BC #### [facility] [address] [place] [address] Dr. Raf Houston Basophils/100 WBC (Bld) 1.1 % Normal 0.2-2.0 [facility] Comment on above: Performed By: #### C BC #### [facility] [address] [place] [address] Dr. Raf Houston EO # 0.1 103/ul Normal 0.0-0.7 [facility] Comment on above: Performed By: #### C BC #### [facility] [address] [place] [address] Dr. Raf Houston Eosinophils/100 WBC (Bld) 1.6 % Normal 0.9-7.0 [facility] Comment on above: Performed By: #### C BC #### [facility] [address] [place] [address] Dr. Raf Houston Erythrocyte distribution width (RBC) [Ratio] 13.2 % Normal 11.0-15.0 [facility] Comment on above: Performed By: #### C BC #### [facility] [address] [place] [address] Dr. Raf Houston Hematocrit (Bld) [Volume fraction] 45.2 % Normal 36.0-48.0 [facility] Comment on above: Performed By: #### C BC #### [facility] [address] [place] [address] Dr. Raf Houston Hemoglobin (Bld) [Mass/Vol] 14.9 g/dL Normal 12.0-16.0 [facility] Comment on above: Performed By: #### C BC #### [facility] [address] [place] [address] Dr. Raf Houston IG # 0.01 10e3/ul Normal 0.00-0.03 [facility] Comment on above: Performed By: #### C BC #### [facility] [address] [place] [address] Dr. Raf Houston IG % 0.2 % Normal 0.0-0.5 [facility] Comment on above: Performed By: #### C BC #### [facility] [address] [place] [address] Dr. Raf Houston LYMPH # 1.5 103/ul Normal 1.2-3.8 [facility] Comment on above: Performed By: #### C BC #### [facility] [address] [place] [address] Dr. Raf Houston Lymphocytes/100 WBC (Bld) 33.9 % Normal 20.5-60.0 [facility] Comment on above: Performed By: #### C BC #### [facility] [address] [place] [address] Dr. Raf Houston MANUAL DIFF REQ NO Normal [facility] Comment on above: Performed By: #### C BC #### [facility] [address] [place] [address] Dr. Raf Houston MCH (RBC) [Entitic mass] 30.6 pg Normal 26.7-34.0 [facility] Comment on above: Performed By: #### C BC #### [facility] [address] [place] [address] Dr. Raf Houston MCHC (RBC) [Mass/Vol] 33.0 g/dL Normal 29.9-35.2 [facility] Comment on above: Performed By: #### C BC #### [facility] [address] [place] [address] Dr. Raf Houston MCV (RBC) [Entitic vol] 92.8 fL Normal 81.0-99.0 [facility] Comment on above: Performed By: #### C BC #### [facility] [address] [place] [address] Dr. Raf Houston MONO # 0.5 103/ul Normal 0.3-0.8 [facility] Comment on above: Performed By: #### C BC #### [facility] [address] [place] [address] Dr. Raf Houston Monocytes/100 WBC (Bld) 11.0 % Normal 1.7-12.0 [facility] Comment on above: Performed By: #### C BC #### [facility] [address] [place] [address] Dr. Raf Houston NEUT # 2.3 103/ul Normal 1.4-6.5 [facility] Comment on above: Performed By: #### C BC #### [facility] [address] [place] [address] Dr. Raf Houston Neutrophils/100 WBC (Bld) 52.2 % Normal 43.0-75.0 [facility] Comment on above: Performed By: #### C BC #### [facility] [address] [address] [address] Raf Houston Platelet mean volume (Bld) [Entitic vol] 9.6 fL Normal 9.5-13.5 [facility] Comment on above: Performed By: #### C BC #### [facility] [address] [address] [address] Raf Houston PLT 215 103/ul Normal 150-450 [facility] Comment on above: Performed By: #### C BC #### [facility] [address] [address] [address] Raf Houston RBC 4.87 106/ul Normal 4.20-5.40 [facility] Comment on above: Performed By: #### C BC #### [facility] [address] [address] [address] Raf Houston WBC 4.5 103/ul Normal 4.0-11.0 [facility] Comment on above: Performed By: #### C BC #### [facility] [address] [address] [address] Raf Houston FREE THYROXINE INDEX T7on FTI 3.61 Normal [facility] Comment on above: Performed By: #### T 7, CMP, TSH, LIPID #### [facility] [address] [address] [address] Raf Houston T3U 41.0 % Critically high 23.5-40.5 [facility] Comment on above: Performed By: #### T 7, CMP, TSH, LIPID #### [facility] [address] [address] [address] Raf Houston T4 [Mass/Vol] 8.80 ug/dL Normal 4.80-13.90 [facility] Comment on above: Performed By: #### T 7, CMP, TSH, LIPID #### [facility] [address] [address] [address] Raf Houston GLYCOHEMOGLOBIN A1Con 2021 ADA RECOMMENDATION SEE BELOW Normal [facility] Comment on above: Result Comment: ADA RECOMMENDED LIMIT 4.0 - 6.0 ADA THERAPEUTIC TARGET < 7.0 ACTION SUGGESTED > 7.0 Performed By: #### A 1C #### [facility] [address] [place] [address] Dr. Raf Houston Glucose [Mass/Vol] 111 mg/dL Normal [facility] Comment on above: Performed By: #### A 1C #### [facility] [address] [place] [address] Dr. Raf Houston HbA1c (Bld) [Mass fraction] 5.5 % Normal 4.5-6.2 [facility] Comment on above: Performed By: #### A 1C #### [facility] [address] [place] [address] Dr. Raf Houston IRONon 10-08-2021 Iron [Mass/Vol] 139.0 ug/dL Normal 50.0-170.0 [facility] Comment on above: Performed By: #### I ISABEL #### [facility] [address] [place] [address] Dr. Raf Houston LIPID PROFILEon 10-08-2021 CHOL-HDL RATIO NORM SEE BELOW Normal [facility] Comment on above: Result Comment: 3.3 - 4.4 LOW RISK 4.4 - 7.1 AVERAGE RISK 7.1 - 11.0 MODERATE RISK >11.0 HIGH RISK Performed By: #### T 7, CMP, TSH, LIPID #### [facility] [address] [place] [address] Dr. Raf Houston Cholesterol [Mass/Vol] 189 mg/dL Normal <=200 [facility] Comment on above: Performed By: #### T 7, CMP, TSH, LIPID #### [facility] [address] [place] [address] Dr. Raf Houston Cholesterol in HDL [Mass/Vol] 63 mg/dL Critically high 40-60 [facility] Comment on above: Performed By: #### T 7, CMP, TSH, LIPID #### [facility] [address] [place] [address] Dr. Raf Houston Cholesterol in LDL [Mass/Vol] 110.0 mg/dL Normal [facility] Comment on above: Performed By: #### T 7, CMP, TSH, LIPID #### [facility] [address] [address] [address] Raf Houston Cholesterol.total/Cho lesterol in HDL [Mass ratio] 3.0 {ratio} Normal [facility] Comment on above: Performed By: #### T 7, CMP, TSH, LIPID #### [facility] [address] [address] [address] Raf Houston HDL NORMAL > or = 60 mg/dl - LOW CARDIOVASCULAR RISK <40 mg/dl - HIGH CARDIOVASCULAR RISK Normal [facility] Comment on above: Performed By: #### T 7, CMP, TSH, LIPID #### [facility] [address] [address] [address] Raf Houston LDL CALC NORMAL SEE BELOW Normal [facility] Comment on above: Result Comment: <100 mg/dl OPTIMAL 100 - 129 mg/dl NEAR OR ABOVE OPTIMAL 130 - 159 mg/dl BORDERLINE HIGH 160 - 189 mg/dl HIGH >190 mg/dl VERY HIGH Performed By: #### T 7, CMP, TSH, LIPID #### [facility] [address] [address] [address] Raf Houston Triglyceride [Mass/Vol] 80 mg/dL Normal <=150 [facility] Comment on above: Performed By: #### T 7, CMP, TSH, LIPID #### [facility] [address] [address] [address] Raf Houston VLDL CALC 16.0 mg/dL Normal [facility] Comment on above: Performed By: #### T 7, CMP, TSH, LIPID #### [facility] [address] [address] [address] Raf Houston PROF 14(COMP METB)on 022 Albumin [Mass/Vol] 3.8 g/dL Normal 3.4-5.[address] [facility] Comment on above: Performed By: #### T 7, CMP, TSH, LIPID #### [facility] [address] [address] [address] Raf Houston Albumin/Globulin [Mass ratio] 1.1 {ratio} Normal [facility] Comment on above: Performed By: #### T 7, CMP, TSH, LIPID #### [facility] [address] [address] [address] Raf Houston ALP [Catalytic activity/Vol] 72 U/L Normal 46-116 [facility] Comment on above: Performed By: #### T 7, CMP, TSH, LIPID #### [facility] [address] [place] [address] Dr. Raf Houston ALT [Catalytic activity/Vol] 35 U/L Normal 14-59 [facility] Comment on above: Performed By: #### T 7, CMP, TSH, LIPID #### [facility] [address] [place] [address] Dr. Raf Houston Anion gap [Moles/Vol] 9.7 mmol/L Normal [facility] Comment on above: Performed By: #### T 7, CMP, TSH, LIPID #### [facility] [address] [place] [address] Dr. Raf Houston AST [Catalytic activity/Vol] 18 U/L Normal 15-37 [facility] Comment on above: Performed By: #### T 7, CMP, TSH, LIPID #### [facility] [address] [place] [address] Dr. Raf Houston Bilirubin [Mass/Vol] 0.6 mg/dL Normal 0.2-1.0 [facility] Comment on above: Performed By: #### T 7, CMP, TSH, LIPID #### [facility] [address] [place] [address] Dr. Raf Houston Calcium [Mass/Vol] 8.7 mg/dL Normal 8.5-10.[address] [facility] Comment on above: Performed By: #### T 7, CMP, TSH, LIPID #### [facility] [address] [place] [address] Dr. Raf Houston Chloride [Moles/Vol] 103 mmol/L Normal 98-107 [facility] Comment on above: Performed By: #### T 7, CMP, TSH, LIPID #### [facility] [address] [address] [address] Raf Houston CO2 [Moles/Vol] 31.6 mmol/L Normal 21.0-32.0 [facility] Comment on above: Performed By: #### T 7, CMP, TSH, LIPID #### [facility] [address] [address] [address] Raf Houston Creatinine [Mass/Vol] 0.72 mg/dL Normal 0.55-1.02 [facility] Comment on above: Performed By: #### T 7, CMP, TSH, LIPID #### [facility] [address] [address] [address] Raf Houston EGFR-AF OMANI >60 Normal >=60 [facility] Comment on above: Performed By: #### T 7, CMP, TSH, LIPID #### [facility] [address] [address] [address] Raf Houston EGFR-NON AF OMANI >60 Normal >=60 [facility] Comment on above: Performed By: #### T 7, CMP, TSH, LIPID #### [facility] [address] [address] [address] Raf Houston Globulin (S) [Mass/Vol] 3.4 g/dL Normal [facility] Comment on above: Performed By: #### T 7, CMP, TSH, LIPID #### [facility] [address] [address] [address] Raf Houston Glucose [Mass/Vol] 103 mg/dL Normal 74-[address] [facility] Comment on above: Performed By: #### T 7, CMP, TSH, LIPID #### [facility] [address] [address] [address] Raf Houston Potassium [Moles/Vol] 4.3 mmol/L Normal 3.5-5.1 [facility] Comment on above: Performed By: #### T 7, CMP, TSH, LIPID #### [facility] [address] [address] [address] Raf Houston Protein [Mass/Vol] 7.2 g/dL Normal 6.1-8.[address] [facility] Comment on above: Performed By: #### T 7, CMP, TSH, LIPID #### [facility] [address] [place] [address] Dr. Raf Houston Sodium [Moles/Vol] 140 mmol/L Normal 136-145 [facility] Comment on above: Performed By: #### T 7, CMP, TSH, LIPID #### [facility] [address] [place] [address] Dr. Raf Houston Urea nitrogen [Mass/Vol] 13.0 mg/dL Normal 7.0-18.0 [facility] Comment on above: Performed By: #### T 7, CMP, TSH, LIPID #### [facility] [address] [place] [address] Dr. Raf Houston Urea nitrogen/Creatinine [Mass ratio] 18.1 mg/mg Normal [facility] Comment on above: Performed By: #### T 7, CMP, TSH, LIPID #### [facility] [address] [place] [address] Dr. Raf Houston TSHon 10-08-2021 TSH 0.471 uIU/mL Normal 0.470-4.680 [facility] Comment on above: Performed By: #### T 7, CMP, TSH, LIPID #### [facility] [address] [place] [address] Dr. Raf Houston TSH RANGE SEE BELOW Normal [facility] Comment on above: Result Comment: <0.3 4 UIU/ml HYPERTHYROID 0.34-5.60 UIU/ml EUTHYROID >5.60 UIU/ml HYPOTHYROID Performed By: #### T 7, CMP, TSH, LIPID #### [facility] [address] [place] [address] Dr. Raf Houston Covid-19 PCR ([facility])on 04-14 SARS-CoV-2 (COVID-19) RNA NAHED+probe Ql (Unsp spec) Not detected Normal NOT DETECTED [facility] Comment on above: Result Comment: This test is not yet approved or cleared by the [place] FDA. When there are no FDA-approved or cleared tests available, and other criteria are met, FDA can make tests available under an emergency access mechanism called an Emergency Use Authorization (EUA). The EUA for this test is supported by the [employer] of Health and Human Service's (HHS's) declaration [...] consistent with SARS-CoV-2. Performed By: #### [facility] #### [facility] [address] [place] [address] Dr. Raf Houston Outside Colonoscopyon 2019 Outside Colonoscopy [id number] 53#1.00CD:127 [facility] Lab Reportson 01-22-2020 Lab Reports [id number] D4#1.00CD:127 [facility] Consent for Procedure/Surger yon 01-02-2020 Consent for Procedure/Surgery [id number] 5D#1.00CD:127 [facility] Facesheeton 01-01-2020 Facesheet [id number] 41#1.00CD:127 [facility] Ambulatory Clinical Summaryo n 12-28-2019 Ambulatory Clinical Summary {[id number]}CD:[id number] 8 [facility] Consultation Noteon 12-24-19 20 Consultation Note [id number] C7#1.00CD:127 [facility] Lab Reportson 12-24-2019 Lab Reports [id number] 1C#1.00CD:127 [facility] Physician Referralon 020 Physician Referral [id number] 9B#1.00CD:127 [facility] Vital Signs Date Time Vital Sign Value Performing Clinician Facility 10-06-2022 10:45-0400 Body height 165.1 cm Vernon Bajwa Other [facility] Other 10-06-2022 10:45-0400 Body mass index (BMI) [Ratio] 32.61 kg/m2 Vernon Bajwa Other [facility] Other 10-06-2022 10:45-0400 Body weight 88.91 kg Vernon Bajwa Other [facility] Other 10-06-2022 10:45-0400 Diastolic blood pressure 85 mm[Hg] Vernon Bajwa Other [facility] Other 10-06-2022 10:45-0400 Systolic blood pressure 132 mm[Hg] Vernon Bajwa Other [facility] Other 04-07-2022 11:00-0400 Body height 165.1 cm Vernon Bajwa Other [facility] Other 04-07-2022 11:00-0400 Body mass index (BMI) [Ratio] 32.28 kg/m2 Vernon Bajwa Other [facility] Other 04-07-2022 11:00-0400 Body weight 88 kg Vernon Bajwa Other [facility] Other 04-07-2022 11:00-0400 Diastolic blood pressure 89 mm[Hg] Vernon Bajwa Other [facility] [facility] Other 04-07-2022 11:00-0400 Systolic blood pressure 127 mm[Hg] Vernon Bajwa Other [facility] [facility] Other Encounters Encounter Date Encounter Type Care Provider Facility Start: 03-20-2024 End[facility]: 12-29-2023 End: 12-29-2023 ambulatory [facility] Start: 12-05-2023 End: 12-05-2023 ambulatory [facility]ALY [facility] Start: 11-14-2023 End: 11-14-2023 ambulatory [facility] Start: 08-02-2023 End: 08-02-2023 ambulatory Referral Self Facility:[facility] Start: 10-06-2022 End: 10-06-2022 ambulatory Vernon Garett Other [facility] [facility] Other Start: 10-06-2022 Office outpatient visit 15 minutes Vernon Bajwa [facility] Start: 04-07-2022 End: 04-07-2022 ambulatory Vernon Bajwa Other [facility] [facility] Other Start: 04-07-2022 Office outpatient visit 15 minutes Vernon Bajwa [facility] Start: 01-14-2022 End: 01-15-2022 ambulatory JULISA PARIKH Facility:[facility] Start: 01-12-2022 End: 01-12-2022 ambulatory Vernon Bajwa Other [facility] [facility] Other Start: 01-12-2022 Telephone encounter Vernon arndt [facility] Start: 10-19-2021 End: 10-20-2021 ambulatory JULISA JL Facility:[facility] Start: 10-08-2021 End: 10-09-2021 ambulatory JULISA JL Facility:[facility] Start: 09-20-2021 End: 09-20-2021 ambulatory Ousmane De La Torre Other [employer] Other Start: 09-20-2021 Encounter by josiah Meilas Wil [facility] Start: 05-05-2021 End: 05-05-2021 ambulatory JULISA PRAIKH Facility:[facility] Payers Date Payer Category Payer Self-pay 2022 Unknown [id number] 1961 Medicare [id number] 2.1 [id number] 1961 Unknown [id number] 2.16.8 [id number] 1950 Unknown [id number] 2.16.84 [id number] 1950 Unknown [id number] 2.16.84 [id number] 1950 Unknown [id number] 2.16.84 [id number] 1950 Unknown [id number] 2.16.84 [id number] Unknown [id number] 2.16.8 [id number] Social History Date Type Detail Facility Sex Assigned At [facility] Other Clinical Notes 01-12-2022 to 03-20-2024 Note Date & Type Note Facility 03-20-2024 Note PR Electrophysiology Consult Note PR Cardiology - [facility] Reason for visit: HPI: Hilda Matos is a 73 y.o. year old with past medical history of hypothyroidism, GERD, COPD who was seen by Dr. Monse Philip previously for palpitations. She had described this to be happening at least 2-3 times a week and there were nonsustained. She also had reported some dyspnea which seems to have some improvement with the inhaler treatment. For the above she was advised to have a 30-day event monitor which was done on 11/14/2023 to 12/14/2023. This revealed episodes of tachycardia that was noted on 11/22/2023 what appeared to be possibly atrial fibrillation. Other than this no other SVTs were noted except for PACs and PVCs. PMH: Past Medical History: Diagnosis Date Abnormal ECG Bradycardia PSH: Past Surgical History: Procedure Laterality Date CHOLECYSTECTOMY SH: Social Determinants of Health Tobacco Use: Medium Risk (12/05/2023) Patient History Smoking Tobacco Use: Former Smokeless Tobacco Use: Never Passive Exposure: Not on file Alcohol Use: Not on file Financial Resource Strain: Not on file Food Insecurity: Not on file Transportation Needs: Not on file Physical Activity: Not on file Stress: Not on file Social Connections: Not on file Intimate Partner Violence: Unknown (10/21/2023) PR Safety & Environment Fear of Current or Ex-Partner: Not on file Emotionally Abused: Not on file Physically Abused: Not on file Sexually Abused: Not on file Physically or Sexually Abused: Not on file Depression: Not on file Housing Stability: Not on file Utilities: Not on file Allergies: Allergies Allergen Reactions Codeine Other Sulfamethoxazole-Trimethoprim Other Weight: 87.1kg Visit Vitals BP 130/74 Pulse 51 Ht 1.651 m (5' 5 ) Wt 87.1 kg (192 lb) SpO2 99% BMI 31.95 kg/m??? Smoking Status Former BSA 2 m??? Meds: Current Outpatient Medications on File Prior to Visit Medication Sig Dispense Refill albuterol 90 mcg/actuation inhaler every 4 (four) hours. ALPRAZolam (Xanax) 0.25 mg tablet Take 0.25 mg by mouth if needed at bedtime. apixaban (Eliquis) 5 mg tablet Take 1 tablet (5 mg) by mouth in the morning and at bedtime. 60 tablet 11 dorzolamide-timoloL (Cosopt) 22.3-6.8 mg/mL ophthalmic solution Administer 1 drop into both eyes in the morning and at bedtime. levothyroxine (Synthroid, Levoxyl) 137 mcg tablet pantoprazole (ProtoNix) 40 mg EC tablet 1 (one) time each day at the same time. No current facility-administered medications on file prior to visit. ROS: Review of Systems Cardiovascular: Positive for dyspnea on exertion and palpitations. Musculoskeletal: Positive for arthritis, back pain, joint pain and myalgias. All other systems reviewed and are negative. Physical Exam: Constitutional General Appearance: well-nourished, well-developed, appears stated age Level of Distress: comfortable Psychiatric Mental Status: alert, normal affect Orientation: oriented to time, place, and person Insight: good judgement Eyes Lids and Conjunctivae: non-injected, no xanthelasma ENMT Ears: no lesions on external ear Nose: no lesions on external nose Oropharynx: no cyanosis, no pallor Neck Neck: supple, trachea midline Carotid Arteries: bilateral normal upstroke, no bruits Jugular Veins: normal jugular venous pressure Thyroid: not enlarged Lungs Respiratory Effort: unlabored Chest Exam: normal curvature, no thoracic deformity Auscultation: clear, no wheezing, no rales, no rhonchi Cardiovascular Rate And Rhythm: regular Heart Sounds: normal S1, normal s2, no gallop Systolic Murmur: not heard Diastolic Murmur: not heard Extremities: no cyanosis, no edema, no peripheral signs of emboli Peripheral Pulses Radial Pulse: normal Abdomen Inspection and Palpation: soft, non distended, no bruit, non tender Musculoskeletal Inspection: no joint swelling Neurologic Gait: normal gait Skin Inspection and Palpation: warm and dry Nails: no clubbing Labs: @LABRESULTS@ No results found for: CHOLESTEROL TOTAL , HDL , LDL CALC , LDL DIRECT , TRIGLYCERIDES , TSH , T3 TOTAL , T4 TOTAL , THYROID PEROXIDASE AB , BNP EKG: No results found for this or any previous visit (from the past 4464 hour(s)). Echo: 12/22/2023 Investigations: Holter monitor 10/14/2023: Impression: Predominant rhythm [...] in the moderate risk category. 12 lead EKG: (more content not included)... [facility] 12-29-[address] [facility] Cardiology Clinic Note Chief Complaint: New [...] being 1.46 Assessment: Palpitations Paroxysmal atrial fibrillation; [id number] score of 3 Dyspnea on exertion Evidence of 2-1 AV block Supraventricular tachycardia Ventricul (more content not included)... [facility] 12-05-2023 Note Labs for TSH with reflex T4 orde red [facility] 12-05-2023 Note [id number] = 3 poi nts Age, Female D/w [...] with Dr Denis, staff notified to call [facility] about her TTE and stress test to be scheduled. [facility] 12-05-2023 Note Telemedicine visit p er Dr. [...] All other systems reviewed and are negative. [facility] 12-05-2023 Note [facility] CARDIOLOGY PROGR ESS NOTE [...] was initiated by the patient and conducted [id number] with use of audio-only real time telephone [...] 12 months Assessment/Plan: Paroxysmal atrial fibrillation (CMS/HCC) [id number] = 3 points Age, Female D/w pt [...] with Dr Denis, staff notified to call [facility] about her TTE and stress test to be scheduled. Hypothyroidism Labs for TSH with reflex T4 ordered [facility] 11-14-[address] [facility] Cardiology Clinic Note Chief Complaint: New [...] following testing Levar Denis MD, MPH, [facility], [facility], [facility] Interventional Cardiology Pager Email: [email or web address] 10-06-2022 Evaluation note Encounter Date Diagnosis Assessment Notes Sep, GERD (gastroesopha geal reflux disease) (ICD-10 - K21.9) Patient reports feeling well with no heartburn. Patient is watching her diet & avoiding foods that trigger her symptoms. Continue Pantioprazole without change, Return visit in one year Sep, Esophageal spasm (ICD-10 - K22.4) Sep, Dyspepsia (ICD-10 - K30) Patient reports feeling well with no dyspepsia Embedded Chat Other 10-26-2022 Evaluation note* Encounter Date Diagnosis Assessment Notes Treatment Notes Treatment Clinical Notes Mar, GERD (gastroesophageal reflux disease) (ICD-10 - K21.9) Continue Pantoprazole Mar, Hiatal hernia (ICD-10 - K44.9) Mar, Esophageal spasm (ICD-10 - K22.4) Pt to call if dysphagia returns Mar, Dyspepsia (ICD-10 - R10.13) Start Dicyclomine qid prn Follow up in 6 months Embedded Chat Other 08-02-2022 Evaluation note* Encounter Date Diagnosis Assessment Notes Treatment Notes Treatment Clinical Notes Jan, Gastro-esophageal reflux disease without esophagitis (ICD-10 - K21.9) Embedded Chat Other [facility]No [facility] [employer] Other History general Narrative - Reported* Type Description Date Medical History glaucoma Surgical History left elbow bone spur removal Surgical History gallbladder [facility] [employer] Other Summary Purpose Family History No Family History Records FoundNo Family History Records FoundNo Family History Records FoundNo Family History Records Found Advance Directives No Advanced Directives Records FoundNo Advanced Directives Records FoundNo Advanced Directives Records FoundNo Advanced Directives Records Found Additional Source Comments INFORMATION SOURCE (unrecogn ized section and content) DATE CREATED AUTHOR 02/11/2020 Enriquez Le Flore [facility] DATE CREATED AUTHOR AUTHOR'S ORGANIZ ATION 01/17/2022 [facility] DATE CREATED AUTHOR AUTHOR'S ORGANIZ ATION 08/12/2023 [facility] DATE CREATED AUTHOR AUTHOR'S ORGANIZ ATION 03/25/2024 [facility] REASON FOR VISIT (unrecogniz ed section and content) Update Dennys [facility] PPWPATIENT HERE FOR EGD FOLLOW UP ON [...] BE BASED ON THE PRIMARY CLINICAL RECORDS. [employer] provides no warranty or guarantee of the accuracy or completeness of information in this document.
--- NOTE | 2024-04-05 10:40 | XR_ITS ---
The [address] [address] Patient Name: HILDA PARMAR MRN: [id number] date: 1950 Sex: F Assigned Patient Location: [facility] Current Patient Location: Accession/Order Number: [id number] Exam Date: 04/05/2024 10:44 Report Date: 04/08/2024 08:39 At the request of: KAT PARIKH Procedure: XR shoulder LT min 2V PROCEDURE: XR shoulder LT min 2V HISTORY: Left Shoulder Pain M25.512 ; chronic intermittent left shoulder pain COMPARISON: None. FINDINGS: BONES:Narrowing of the acromioclavicular joint with moderate size degenerative osteophytes projecting inferiorly from the joint margins. Unremarkable humeral head and glenohumeral joint. SOFT TISSUES:No visible soft tissue swelling. EFFUSION:None visible. OTHER: Negative. XR/XR shoulder LT min 2V IMPRESSION: 1. Moderate degenerative changes of the acromioclavicular joint which would predispose to rotator cuff injury. 2. No acute abnormality. Electronically authenticated by: ROBERTA COLLAZO Date: 04/08/2024 08:39
== END 2024-04-05 10:34 | disposition home or self-care (01) ==
LOC: RAD 10:35
PROVIDERS: PCP Nurse Practitioner Family; Visit Provider Nurse Practitioner Family
DX: M25.512 Pain in left shoulder (principal); M19.012 Primary osteoarthritis, left shoulder
CPT/HCPCS: 73030

== ENCOUNTER 2024-04-19 09:58 | Outpatient (OUT) | payer OTHER, SELFPAY ==
--- NOTE | 2024-04-19 10:02 | CT_ITS ---
The [address] [address] Patient Name: HILDA PARMAR MRN: [id number] date: 1950 Sex: F Assigned Patient Location: CT Current Patient Location: Accession/Order Number: [id number] Exam Date: 04/19/2024 10:05 Report Date: 04/22/2024 07:10 At the request of: KAT PARIKH Procedure: CT shoulder LT wo con CT shoulder LT wo con: 04/19/2024 10:05 AM EST HISTORY: Chronic left shoulder pain. The patient reportedly cannot have an MRI due to a loop recorder. COMPARISON: Radiographs left shoulder 04/05/2024. TECHNIQUE: Multiple contiguous axial CT images of the left shoulder were obtained without contrast. Sagittal and coronal reformatted images were made. Dose reduction techniques were achieved by using automated exposure control and/or adjustment of mA and/or kV according to patient size and/or use of iterative reconstruction technique. FINDINGS: No fracture or dislocation is seen. There are moderate degenerative changes of the acromioclavicular joint with subacromial fat effacement. There is a type II acromion causing mild narrowing of the supraspinatus outlet. There are small marginal osteophytes of the glenoid. There is no atrophy of the rotator cuff muscles. CT/CT shoulder LT wo con IMPRESSION: 1. Moderate acromioclavicular joint osteoarthritis with subacromial fat effacement. 2. Mild osteoarthritis of the glenohumeral joint. 3. No fracture or dislocation. Electronically authenticated by: CATHERINE DE LA O Date: 04/22/2024 07:10
--- OUTSIDE RECORDS SUMMARY | 2024-04-19 10:16 | XMS_ITS | CCD ---
Author Organization [facility] CliniSywv Care Team Providers Care Outside Sales Consultant Name Role Phone Ousmane De La Torre Unavailable Vernon Bajwa Unavailable [phone] JL JULISA Admitting Unavailable JL, JULISA Attending Unavailable JL, JULISA Primary Care Unavailable DR ROBERTA COLLAZO Consulting Unavailable JL, JULISA Consulting Unavailable JL, JULISA Admitting Unavailable JL, JULISA Attending Unavailable JL, JULISA Primary Care Unavailable JL, JULISA Consulting Unavailable JL, JULISA Admitting Unavailable JL, JULISA Attending Unavailable JL, JULIAS Primary Care Unavailable JL, JULISA Admitting Unavailable JL, JULISA Attending Unavailable JL, JULISA Primary Care Unavailable JL, JULISA Consulting Unavailable Self, Referral Attending Unavailable Verntahir Ousmane Ailyn Primary Care Unavailable Jl, Julisa Vasquez Referring Unavailable Self, Referral Admitting Unavailable CRISTIAN SINGH Admitting Unavailable CRISTIAN SINGH Attending Unavailable ELTASADA, LEVAR Attending Unavailable CRISTIAN SINGH Attending Unavailable ELTASADA, LEVAR Attending Unavailable NATALY SILVA Attending Unavailable Allergies Allergy Classification Reported Allergen(s) Allergy Type Date of Onset Reaction(s) Facility (2 sources) Codeine; Translations: [CODEINE] Drug Allergy 3 [facility] Repository (1 source) Sulfamethoxazole / Trimethoprim Drug Allergy [facility] Repository (1 source) Sulfamethoxazole / Trimethoprim; Translations: [SULFAMETHOXAZOLE-TR IMETHOPRIM] Drug Allergy 4 [facility] Repository Medications Current Medications Medication Drug Class(es) [...] Test Name Value Interpretation Reference Range Facility [facility] 04-09-2024 [facility] Electrophysiology Consult Note [place] Cardiology [facility] Reason for visit: HPI: Hilda Matos [...] on file Intimate Partner Violence: Unknown (10/21/2023) [place] Safety & Environment Fear of Current or Ex-Partner: Not on file Emotionally Abused: Not on file Physically Abused: Not on file Sexually Abused: Not on file Physically or Sexually Abused: Not on file Depression: Not on file Housing Stability: Not on file Utilities: Not on file Allergies: Allergies Allergen Reactions Codeine Other Sulfamethoxazole-Trime thoprim Other Weight: 87.1kg Visit Vitals BP 130/74 [...] 12 lead EKG: (more content not included)... Normal [facility] NURSNOTEon 04-09-2024 NURSNOTE RN educated pt on d/ c instructions. This included: site care, limited physical activity, resume normal diet, future appointments, medications, and moderate sedation instructions. RN educated pt on when to notify physician and when to go to the hospital. RN encouraged pt to voice any questions or concerns, and answered any questions or concerns if pt verbalized. Normal [facility] Office Visiton 03-20-2024 Follow-up visit [id number] Hilda Matos 1950 Provider Department Center 03/20/2024 CRISTIAN BEAN MARY De Dios Family History Problem Relation Age of Onset Angina Maternal Grandmother Family Status - Relation Status Age at Maternal Grandmother Level of Service:01017 [place] OFFICE/OUTPATIENT NEW MODERATE MDM 45 MINUTES Normal [facility] Office Visiton 12-29-2023 Follow-up visit [id number] Hilda Matos 1950 Date Provider Department Center 12/29/2023 Marli-LEVAR DENIS Family History Problem Relation Age of Onset Angina Maternal Grandmother Family Status - Relation Status Age at Maternal Grandmother Level of Service:72460 [place] OFFICE/OUTPATIENT ESTABLISHED LOW MDM 20 MIN Normal [facility] 36on 12-07-2023 36 Regarding lab result s from 12/06/2023: Nataly Silva, JUSTINE Duncan MA So let her know CBC normal Kidney function normal, Mag level normal TSH was low but her T4 was within normal-- Make sure her PCP gets these results also please Spoke with patient and made her aware. Faxed lab results to Dr. De La Torre's office. Normal [facility] Telemedicineon 12-05-2023 Telemedicine [id number] Hilda Matos 1950 F Date Provider Department Center 12/05/2023 Shadi-NATALY SILVA MARY De Dios Family History Problem Relation Age of Onset Angina Maternal Grandmother Family Status - Relation Status Age at Maternal Grandmother Level of Service:83292 [place] PHYS/QHP TELEPHONE EVALUATION 21-30 MIN [facility] Office Visiton 11-14-2023 Follow-up visit [id number] Hilda Matos 1950 F Date Provider Department Center 11/14/2023 Marli-LEVAR DENIS [facility] Family History Problem Relation Age of Onset Angina Maternal Grandmother Family Status - Relation Status Age at Maternal Grandmother Level of Service:44515 [place] OFFICE/OUTPATIENT NEW MODERATE MDM 45 MINUTES Normal [facility] MM screening mammo BI w/CADo n 08-02-2023 MM screening mammo BI w/CAD [place] [address] Mammography Report Signed Patient: Hilda Matos MR#: [id number] : 1950 Acct:[id number] Age/Sex: 73 / F ADM Date: 08/02/23 Loc: MD Room: Type: [facility] Attending Dr: Referral Self Copies to: [...] Jayjay Somers M.D.08/02/2023 10:43 AM Dictation Location: [facility] Transcribed By: [facility] 08/02/23 1043 Dictated By: Jayjay Somers DO 08/02/23 1041 Signed By: 08/02/23 10[address] [facility] [address] CHEST WO CONon 01-14-2022 CT CHEST WO CON EXAMINATION: CT CHES T WO CON HISTORY: Nicotine dependence COMPARISON: CT [...] ROBERTA COLLAZO Date: 2022-01-14 16:24 Normal [facility] INSULINon 10-09-2021 Insulin 5.2 uIU/mL Normal 2.6-24.9 [facility] Comment on above: Performed By: #### I NSULIN #### [facility] [address] [address] [address] Raf Houston CBC AUTO DIFFon 10-08-2021 BASO # 0.1 103/ul Normal 0.0-0.1 [facility] Comment on above: Performed By: #### C BC #### [facility] [address] [place] [address] Dr. Raf Houston Basophils/100 WBC (Bld) 1.1 % Normal 0.2-2.0 [facility] Comment on above: Performed By: #### C BC #### [facility] [address] [place] [address] Dr. Raf Houston EO # 0.1 103/ul Normal 0.0-0.7 [facility] Comment on above: Performed By: #### C BC #### [facility] [address] [address] [address] Raf Houston Eosinophils/100 WBC (Bld) 1.6 % Normal 0.9-7.0 [facility] Comment on above: Performed By: #### C BC #### [facility] [address] [place] [address] Dr. Raf Houston Erythrocyte distribution width (RBC) [Ratio] 13.2 % Normal 11.0-15.0 [facility] Comment on above: Performed By: #### C BC #### [facility] [address] [place] [address] Dr. Raf Houston Hematocrit (Bld) [Volume fraction] 45.2 % Normal 36.0-48.0 [facility] Comment on above: Performed By: #### C BC #### [facility] [address] [place] [address] Dr. Raf Houston Hemoglobin (Bld) [Mass/Vol] 14.9 g/dL Normal 12.0-16.0 [facility] Comment on above: Performed By: #### C BC #### [facility] [address] [place] [address] Dr. Raf Houston IG # 0.01 10e3/ul Normal 0.00-0.03 [facility] Comment on above: Performed By: #### C BC #### [facility] [address] [place] [address] Dr. Raf Houston IG % 0.2 % Normal 0.0-0.5 [facility] Comment on above: Performed By: #### C BC #### [facility] [address] [place] [address] Dr. Raf Houston LYMPH # 1.5 103/ul Normal 1.2-3.8 [facility] Comment on above: Performed By: #### C BC #### [facility] [address] [place] [address] Dr. Raf Houston Lymphocytes/100 WBC (Bld) 33.9 % Normal 20.5-60.0 [facility] Comment on above: Performed By: #### C BC #### [facility] [address] [place] [address] Dr. Raf Houston MANUAL DIFF REQ NO Normal [facility] Comment on above: Performed By: #### C BC #### [facility] [address] [place] [address] Dr. Raf Houston MCH (RBC) [Entitic mass] 30.6 pg Normal 26.7-34.0 [facility] Comment on above: Performed By: #### C BC #### [facility] [address] [place] [address] Dr. Raf Houston MCHC (RBC) [Mass/Vol] 33.0 g/dL Normal 29.9-35.2 [facility] Comment on above: Performed By: #### C BC #### [facility] [address] [place] [address] Dr. Raf Houston MCV (RBC) [Entitic vol] 92.8 fL Normal 81.0-99.0 [facility] Comment on above: Performed By: #### C BC #### [facility] [address] [address] [address] Raf Houston MONO # 0.5 103/ul Normal 0.3-0.8 [facility] Comment on above: Performed By: #### C BC #### [facility] [address] [address] [address] Raf Houston Monocytes/100 WBC (Bld) 11.0 % Normal 1.7-12.0 [facility] Comment on above: Performed By: #### C BC #### [facility] [address] [place] [address] Dr. Raf Houston NEUT # 2.3 103/ul Normal 1.4-6.5 [facility] Comment on above: Performed By: #### C BC #### [facility] [address] [place] [address] Dr. Raf Houston Neutrophils/100 WBC (Bld) 52.2 % Normal 43.0-75.0 [facility] Comment on above: Performed By: #### C BC #### [facility] [address] [place] [address] Dr. Raf Houston Platelet mean volume (Bld) [Entitic vol] 9.6 fL Normal 9.5-13.5 [facility] Comment on above: Performed By: #### C BC #### [facility] [address] [place] [address] Dr. Raf Houston PLT 215 103/ul Normal 150-450 [facility] Comment on above: Performed By: #### C BC #### [facility] [address] [place] [address] Dr. Raf Houston RBC 4.87 106/ul Normal 4.20-5.40 [facility] Comment on above: Performed By: #### C BC #### [facility] [address] [place] [address] Dr. Raf Houston WBC 4.5 103/ul Normal 4.0-11.0 [facility] Comment on above: Performed By: #### C BC #### [facility] [address] [address] [address] Raf Houston FREE THYROXINE INDEX T7on FTI 3.61 Normal [facility] Comment on above: Performed By: #### T 7, CMP, TSH, LIPID #### [facility] [address] [address] [address] Raf Houston T3U 41.0 % Critically high 23.5-40.5 [facility] Comment on above: Performed By: #### T 7, CMP, TSH, LIPID #### [facility] [address] [address] [address] Raf Houston T4 [Mass/Vol] 8.80 ug/dL Normal 4.80-13.90 [facility] Comment on above: Performed By: #### T 7, CMP, TSH, LIPID #### [facility] [address] [place] [address] Dr. Raf Houston GLYCOHEMOGLOBIN A1Con 2021 ADA RECOMMENDATION SEE BELOW Normal [facility] Comment on above: Result Comment: ADA RECOMMENDED LIMIT 4.0 - 6.0 ADA THERAPEUTIC TARGET < 7.0 ACTION SUGGESTED > 7.0 Performed By: #### A 1C #### [facility] [address] [address] [address] Raf Houston Glucose [Mass/Vol] 111 mg/dL Normal [facility] Comment on above: Performed By: #### A 1C #### [facility] [address] [address] [address] Raf Houston HbA1c (Bld) [Mass fraction] 5.5 % Normal 4.5-6.2 [facility] Comment on above: Performed By: #### A 1C #### [facility] [address] [address] [address] Raf Houston IRONon 10-08-2021 Iron [Mass/Vol] 139.0 ug/dL Normal 50.0-170.0 [facility] Comment on above: Performed By: #### I ISABEL #### [facility] [address] [address] [address] Raf Houston LIPID PROFILEon 10-08-2021 CHOL-HDL RATIO NORM SEE BELOW Normal [facility] Comment on above: Result Comment: 3.3 - 4.4 LOW RISK 4.4 - 7.1 AVERAGE RISK 7.1 - 11.0 MODERATE RISK >11.0 HIGH RISK Performed By: #### T 7, CMP, TSH, LIPID #### [facility] [address] [address] [address] Raf Houston Cholesterol [Mass/Vol] 189 mg/dL Normal <=200 [facility] Comment on above: Performed By: #### T 7, CMP, TSH, LIPID #### [facility] [address] [address] [address] Raf Houston Cholesterol in HDL [Mass/Vol] 63 mg/dL Critically high 40-60 [facility] Comment on above: Performed By: #### T 7, CMP, TSH, LIPID #### [facility] [address] [place] [address] Dr. Rfa Houston Cholesterol in LDL [Mass/Vol] 110.0 mg/dL Normal [facility] Comment on above: Performed By: #### T 7, CMP, TSH, LIPID #### [facility] [address] [address] [address] Raf Houston Cholesterol.total/Ch olesterol in HDL [Mass ratio] 3.0 {ratio} Normal [facility] Comment on above: Performed By: #### T 7, CMP, TSH, LIPID #### [facility] [address] [address] [address] Raf Houston HDL NORMAL > or = 60 mg/dl - LO W CARDIOVASCULAR RISK <40 mg/dl - HIGH CARDIOVASCULAR RISK Normal [facility] Comment on above: Performed By: #### T 7, CMP, TSH, LIPID #### [facility] [address] [place] [address] Dr. Raf Houston LDL CALC NORMAL SEE BELOW Normal [facility] Comment on above: Result Comment: <100 mg/dl OPTIMAL 100 - 129 mg/dl NEAR OR ABOVE OPTIMAL 130 - 159 mg/dl BORDERLINE HIGH 160 - 189 mg/dl HIGH >190 mg/dl VERY HIGH Performed By: #### T 7, CMP, TSH, LIPID #### [facility] [address] [address] [address] Raf Houston Triglyceride [Mass/Vol] 80 mg/dL Normal <=150 [facility] Comment on above: Performed By: #### T 7, CMP, TSH, LIPID #### [facility] [address] [address] [address] Raf Houston VLDL CALC 16.0 mg/dL Normal [facility] Comment on above: Performed By: #### T 7, CMP, TSH, LIPID #### [facility] [address] [address] [address] Raf Houston PROF 14(COMP METB)on 022 Albumin [Mass/Vol] 3.8 g/dL Normal 3.4-5.0 [facility] Comment on above: Performed By: #### T 7, CMP, TSH, LIPID #### [facility] [address] [place] [address] Dr. Raf Houston Albumin/Globulin [Mass ratio] 1.1 {ratio} Normal [facility] Comment on above: Performed By: #### T 7, CMP, TSH, LIPID #### [facility] [address] [place] [address] Dr. Raf Houston ALP [Catalytic activity/Vol] 72 U/L Normal 46-116 [facility] Comment on above: Performed By: #### T 7, CMP, TSH, LIPID #### [facility] [address] [place] [address] Dr. Raf Houston ALT [Catalytic activity/Vol] 35 U/L Normal 14-59 [facility] Comment on above: Performed By: #### T 7, CMP, TSH, LIPID #### [facility] [address] [address] [address] Raf Houston Anion gap [Moles/Vol] 9.7 mmol/L Normal [facility] Comment on above: Performed By: #### T 7, CMP, TSH, LIPID #### [facility] [address] [place] [address] Dr. Raf Houston AST [Catalytic activity/Vol] 18 U/L Normal 15-37 [facility] Comment on above: Performed By: #### T 7, CMP, TSH, LIPID #### [facility] [address] [address] [address] Raf Houston Bilirubin [Mass/Vol] 0.6 mg/dL Normal 0.2-1.0 [facility] Comment on above: Performed By: #### T 7, CMP, TSH, LIPID #### [facility] [address] [place] [address] Dr. Raf Houston Calcium [Mass/Vol] 8.7 mg/dL Normal 8.5-10.1 [facility] Comment on above: Performed By: #### T 7, CMP, TSH, LIPID #### [facility] [address] [place] [address] Dr. Raf Houston Chloride [Moles/Vol] 103 mmol/L Normal 98-107 [facility] Comment on above: Performed By: #### T 7, CMP, TSH, LIPID #### [facility] [address] [place] [address] Dr. Raf Houston CO2 [Moles/Vol] 31.6 mmol/L Normal 21.0-32.0 [facility] Comment on above: Performed By: #### T 7, CMP, TSH, LIPID #### [facility] [address] [place] [address] Dr. Raf Houston Creatinine [Mass/Vol] 0.72 mg/dL Normal 0.55-1.02 [facility] Comment on above: Performed By: #### T 7, CMP, TSH, LIPID #### [facility] [address] [place] [address] Dr. Raf Houston EGFR-AF [place]IZ[place] >60 Normal >=60 [facility] Comment on above: Performed By: #### T 7, CMP, TSH, LIPID #### [facility] [address] [place] [address] Dr. Raf Houston EGFR-NON AF CITIZEN [place] >60 Normal >=60 [facility] Comment on above: Performed By: #### T 7, CMP, TSH, LIPID #### [facility] [address] [address] [address] Raf Houston Globulin (S) [Mass/Vol] 3.4 g/dL Normal [facility] Comment on above: Performed By: #### T 7, CMP, TSH, LIPID #### [facility] [address] [address] [address] Raf Houston Glucose [Mass/Vol] 103 mg/dL Normal 74-106 [facility] Comment on above: Performed By: #### T 7, CMP, TSH, LIPID #### [facility] [address] [address] [address] Raf Houston Potassium [Moles/Vol] 4.3 mmol/L Normal 3.5-5.1 [facility] Comment on above: Performed By: #### T 7, CMP, TSH, LIPID #### [facility] [address] [place] [address] Dr. Raf Houston Protein [Mass/Vol] 7.2 g/dL Normal 6.1-8.2 [facility] Comment on above: Performed By: #### T 7, CMP, TSH, LIPID #### [facility] [address] [address] [address] Raf Houston Sodium [Moles/Vol] 140 mmol/L Normal 136-145 [facility] Comment on above: Performed By: #### T 7, CMP, TSH, LIPID #### [facility] [address] [address] [address] Raf Houston Urea nitrogen [Mass/Vol] 13.0 mg/dL Normal 7.0-18.0 [facility] Comment on above: Performed By: #### T 7, CMP, TSH, LIPID #### [facility] [address] [address] [address] Raf Houston Urea nitrogen/Creatinine [Mass ratio] 18.1 mg/mg Normal [facility] Comment on above: Performed By: #### T 7, CMP, TSH, LIPID #### [facility] [address] [address] [address] Raf Houston TSHon 10-08-2021 TSH 0.471 uIU/mL Normal 0.470-4.680 [facility] Comment on above: Performed By: #### T 7, CMP, TSH, LIPID #### [facility] [address] [address] [address] Raf Houston TSH RANGE SEE BELOW Normal [facility] Comment on above: Result Comment: <0.3 4 UIU/ml HYPERTHYROID 0.34-5.60 UIU/ml EUTHYROID >5.60 UIU/ml HYPOTHYROID Performed By: #### T 7, CMP, TSH, LIPID #### [facility] [address] [place], [place] [address] Dr. Raf Houston [facility] SARS-CoV-2 (COVID-19) RNA NAHED+probe Ql (Unsp spec) Not detected Normal NOT DETECTED [facility] Comment on above: Result Comment: This test is not yet approved or cleared by the [place] FDA. When there are no FDA-approved or cleared tests available, and other criteria are met, FDA can make tests available under an emergency access mechanism called an Emergency Use Authorization (EUA). The EUA for this test is supported by the [employer] of Health and Human Service's (HHS's) declaration [...] consistent with SARS-CoV-2. Performed By: #### C VDTBH #### [facility] [id number] Raf Houston Outside Colonoscopyon 2019 Outside Colonoscopy [id number] 0CD:127 Normal [facility] Lab Reportson 01-22-2020 Lab Reports [id number] 0CD:127 [facility] Consent for Procedure/Surger yon 01-02-2020 Consent for Procedure/Surgery [id number]#1.0 0CD:127 [facility] Facesheeton 01-01-2020 Facesheet [id number] 0CD:127 [facility] Ambulatory Clinical Summaryo n 12-28-2019 Ambulatory Clinical Summary {[id number]}CD:[id number] [facility] Consultation Noteon 12-24-19 20 Consultation Note [id number] 0CD:127 [facility] Lab Reportson 12-24-2019 Lab Reports [id number] 0CD:127 [facility] Physician Referralon 020 Physician Referral [id number] 0CD:127 [facility] Vital Signs Date Time Vital Sign Value Performing Clinician Facility 10-06-2022 10:45-0400 Body height 165.1 cm Vernon Bajwa Other [facility] Other 10-06-2022 10:45-0400 Body mass index (BMI) [Ratio] 32.61 kg/m2 Vernon Bajwa Other [facility] Other 10-06-2022 10:45-0400 Body weight 88.91 kg Vernon Bajwa Other [facility] Other 10-06-2022 10:45-0400 Diastolic blood pressure 85 mm[Hg] Vernon Bajwa Other [facility] Other 10-06-2022 10:45-0400 Systolic blood pressure 132 mm[Hg] Vernon Garett Other [facility] Other 04-07-2022 11:00-0400 Body height 165.1 cm Vernon Garett Other [facility] Other 04-07-2022 11:00-0400 Body mass index (BMI) [Ratio] 32.28 kg/m2 Vernon Garett Other [facility] Other 04-07-2022 11:00-0400 Body weight 88 kg Vernon Garett Other [facility] Other 04-07-2022 11:00-0400 Diastolic blood pressure 89 mm[Hg] Vernon Garett Other [facility] Other 04-07-2022 11:00-0400 Systolic blood pressure 127 mm[Hg] Vernon Garett Other [facility] Other Encounters Encounter Date Encounter Type Care Provider Facility Start: 04-09-2024 End: 04-09-2024 ambulatory [facility] Start: 03-20-2024 End: 03-20-2024 ambulatory [facility] Start: 12-29-2023 End: 12-29-2023 ambulatory [facility] Start: 12-05-2023 End: 12-05-2023 ambulatory NATALY SILVA [facility] Start: 11-14-2023 End: 11-14-2023 ambulatory [facility] Start: 08-02-2023 End: 08-02-2023 ambulatory Referral Self Facility:[facility] Start: 10-06-2022 End: 10-06-2022 ambulatory Vernon Bajwa Other [facility] Other Start: 10-06-2022 Office outpatient visit 15 minutes Vernon Bajwa [facility] Start: 04-07-2022 End: 04-07-2022 ambulatory Vernon Bajwa Other [employer] Other Start: 04-07-2022 Office outpatient visit 15 minutes Vernon Bajwa [facility] Start: 01-14-2022 End: 01-15-2022 ambulatory JULISA PARIKH Facility:[facility] Start: 01-12-2022 End: 01-12-2022 ambulatory Vernon Bajwa Other [employer] Other Start: 01-12-2022 Telephone encounter Vernon Melodie yris [facility] Start: 10-19-2021 End: 10-20-2021 ambulatory JULISA PARIKH Facility:[facility] Start: 10-08-2021 End: 10-09-2021 ambulatory JULISAALEJANDRA PARIKH Facility:[facility] Start: 09-20-2021 End: 09-20-2021 ambulatory Ousmane De La Torre Other [employer] Other Start: 09-20-2021 Encounter by josiah De La Torre [facility] Start: 05-05-2021 End: 05-05-2021 ambulatory JULISA PARIKH Facility:[facility] Payers Date Payer Category Payer Self-pay 2022 Unknown [id number] 1961 Medicare [id number] 2.1 [id number] 1959 Unknown [id number] 1948 Unknown [id number] 2.16.84 [id number] 1950 Unknown [id number] 2.16.84 [id number] 1950 Unknown [id number] 2.16.84 [id number] 1950 Unknown [id number] 2.16.84 [id number] Unknown [id number] [id number] Social History Date Type Detail Facility Sex Assigned At [facility] Other Clinical Notes 01-12-2022 to 03-20-2024 Note Date & Type Note Facility 03-20-2024 Note [place] Electrophysiology Consult Note [place] Cardiology - [facility] Reason for visit: HPI: Hilda Matos [...] on file Intimate Partner Violence: Unknown (10/21/2023) [place] Safety & Environment Fear of Current or [...] 12 lead EKG: (more content not included)... [facility] [place] 12-29-2023 Note [facility] Cardiology Clinic Note Chief Complaint: New [...] being 1.46 Assessment: Palpitations Paroxysmal atrial fibrillation; [id number] score of 3 Dyspnea on exertion Evidence of 2-1 AV block Supraventricular tachycardia Ventricul (more content not included)... [facility] [place] 12-05-2023 Note Labs for TSH with reflex T4 orde red [facility] [place] 12-05-2023 Note [id number] = 3 poi nts Age, Female D/w [...] with Dr Denis, staff notified to call [facility] about her TTE and stress test to be scheduled. [facility] [place] 12-05-2023 Note [facility] CARDIOLOGY PROGR ESS NOTE [...] was initiated by the patient and conducted [id number] with use of audio-only real time telephone [...] 12 months Assessment/Plan: Paroxysmal atrial fibrillation (CMS/HCC) [id number] = 3 points Age, Female D/w pt [...] with Dr Denis, staff notified to call [facility] about her TTE and stress test to be scheduled. Hypothyroidism Labs for TSH with reflex T4 ordered [facility] [place] 12-05-2023 Note Telemedicine visit p er Dr. [...] All other systems reviewed and are negative. [facility] 11-14-2023 Note [facility] Cardiology Clinic Note Chief Complaint: New [...] RTC following testing Levar Denis MD, MPH, [facility], [facility], [facility] Interventional Cardiology Pager Email: [email or web address] 10-06-2022 Evaluation note Encounter Date Diagnosis [...] Patient reports feeling well with no dyspepsia [employer] Other 10-26-2022 Evaluation note* Encounter Date Diagnosis Assessment Notes Treatment Notes Treatment Clinical Notes Mar, GERD (gastroesophageal reflux disease) (ICD-10 - K21.9) Continue Pantoprazole Mar, Hiatal hernia (ICD-10 - K44.9) Mar, Esophageal spasm (ICD-10 - K22.4) Pt to call if dysphagia returns Mar, Dyspepsia (ICD-10 - R10.13) Start Dicyclomine qid prn Follow up in 6 months [employer] Other 08-02-2022 Evaluation note* Encounter Date Diagnosis Assessment Notes Treatment Notes Treatment Clinical Notes Jan, Gastro-esophageal reflux disease without esophagitis (ICD-10 - K21.9) [employer] Other Evaluation noteNo [employer] Other History general Narrative - Reported* Type Description Date Medical History glaucoma Surgical History left elbow bone spur removal Surgical History gallbladder [employer] Other Summary Purpose Family History No Family History Records FoundNo Family History Records FoundNo Family History Records FoundNo Family History Records Found Advance Directives No Advanced Directives Records FoundNo Advanced Directives Records FoundNo Advanced Directives Records FoundNo Advanced Directives Records Found Additional Source Comments INFORMATION SOURCE (unrecogn ized section and content) DATE CREATED AUTHOR 02/11/2020 [facility] DATE CREATED AUTHOR AUTHOR'S ORGANIZ ATION 01/17/2022 [facility] DATE CREATED AUTHOR AUTHOR'S ORGANIZ ATION 08/12/2023 [facility] DATE CREATED AUTHOR AUTHOR'S ORGANIZ ATION 04/10/2024 [facility] REASON FOR VISIT (unrecogniz ed section and content) Update Dennys Demographics[place] PPWPATIENT HERE FOR EGD FOLLOW UP ON [...] BE BASED ON THE PRIMARY CLINICAL RECORDS. [facility]. provides no warranty or guarantee of the accuracy or completeness of information in this document.
== END 2024-04-19 09:59 | disposition home or self-care (01) ==
LOC: CT 09:58
PROVIDERS: PCP Nurse Practitioner Family; Visit Provider Nurse Practitioner Family
DX: M25.512 Pain in left shoulder (principal); M19.012 Primary osteoarthritis, left shoulder
CPT/HCPCS: 73200

== ENCOUNTER 2025-01-15 07:09 | Outpatient (OUT) | payer MEDICARE, SELFPAY ==
--- OUTSIDE RECORDS SUMMARY | 2012-03-22 20:00 | XMS_ITS | Continuity of Care Document ---
Author Organization [facility] Address [address] [place] [address] Phone Care Team Providers Care Fagoter Name Role Phone Enedina JACOBSON Yan JACOBSON [...] Diagnoses Date Provider Providers Copied on Encounter [facility], [address] [place] [address], [id number], tel:[phone] Renee No Information Enedina JACOBSON Yan. [address] [place] [address], [id number], [place]. tel:[phone] Family History Family Member Type Diagnosis Age At Onset No Information Immunizations Vaccine Date Status Comments Flu (split) (3 yrs or older) administered Source: New Immunization Record Payers Payer name Insurance type Covered green party ID Authoriza tion(s) [facility] CI [id number] Social History Type Description Quantity Date Captured [...]
--- OUTSIDE RECORDS SUMMARY | 2024-08-21 06:58 | XMS_ITS ---
Author Organization The [facility] in [place] Address [address] [place] [address] Care Team Providers Care Party Plan Sales Host/Hostess Name Role Phone Julisa Alfaro Primary Care Provider [phone] REASON FOR VISIT refill Medications Medication SIG (Take, Route, Fr equency, Duration) Notes Start Date End Date Status Synthroid 137 MCG TAKE 1 TABLET EVERY MORNING for 90 days Active Encounters Encounter Location Date Provider Diagnosis [facility] [address] [place] [address] 08/21/2024 Julisa Alfaro Plan Of Treatment Medication Medication Name Sig Start Date Stop Date Notes Synthroid 137 MCG TAKE 1 TABLET EVERY MORNING for 90 days Progress Notes * Melissa MATOSDOB: 8 (74 yo F)Acc No.[id number]:08/21/2024 Patient: Melissa NICHOLS :1950 A ge:74 Y S ex:Female Address:[address] [place] [address] * Refills Refill Synthroid Tablet, 137 MCG, 90 Tablet, TAKE 1 TABLET EVERY MORNING, 90 days, Refills=2 * true * Date: Generated for Borisi ng/Fagiselg/eTransmitting on: 0 01/15/2025 07:11 AM EDT
--- OUTSIDE RECORDS SUMMARY | 2024-09-03 05:59 | XMS_ITS ---
Author Organization The [facility] in [place] Address [address] [place] [address] Care Team Providers Care Brick Sorter Name Role Phone Julisa Alfaro Primary Care Provider REASON FOR VISIT Mammogram Encounters Encounter Location Date Provider Diagnosis [facility] [address] [place] [address] 09/03/2024 Julisa Alfaro Plan Of Treatment No Information Progress Notes * Melissa MATOSDOB: (74 yo F)Acc No.[id number]:09/03/2024 Patient: Melissa NICHOLS :1950 A ge:74 Y S ex:Female Address[address] [place] [address] * true * Date: Generated for Borisi ng/Fagiselg/eTransmitting on: 0 01/15/2025 07:11 AM EDT
--- OUTSIDE RECORDS SUMMARY | 2025-01-01 11:15 | XMS_ITS | Encounter Summary ---
Author Organization The [facility] Address [address] [place] [address] Care Team Providers Care Respiratory Therapy Aide Name Role Phone Julisa Alfaro CNP Primary Care Provider [phone] Encounter Details Date Type Department Care Team (Late st Contact Info) Description 01/01/2025 11:15 AM EDT Office Visit [facility] [address] [place] [address] Cedric Peter MD [address] [place] [address] PVC (premature ventricular contraction) (Primary Dx) Social History Tobacco Use Types Packs/Day Years Used Date Smoking Tobacco: Former Cigarettes Q uit: 1998 Smokeless Tobacco: Never Tobacco Cessation:Counseling Given: Not Answered Alcohol Use Standard Drinks/Week Comments Yes 7 (1 standard drink = 0.6 oz pur e alcohol) [place] Safety & Environment Answer Date Rec orded Fear of Current or Ex-Partner Not on file Emotionally Abused Not on file 10/21/2023 Physically Abused Not on file 10/21/2023 Sexually Abused Not on file 10/21/2023 Physically or Sexually Abused Not on file Comments No Sex and Gender Information Value Date Recorded Sex Assigned at Not on file Legal Sex Female 10:12 AM EDT Gender Identity Not on file Sexual Orientation Not on file documented as of this encounter Last Filed Vital Signs Vital Sign Reading Time Taken Comments Blood Pressure 135/83 01/01/2025 11:10 AM EDT Pulse 82 01/01/2025 11:10 AM EDT Temperature - - Respiratory Rate - - Oxygen Saturation 98% 01/01/2025 11:10 AM EDT Inhaled Oxygen Concentration - - Weight 85.3 kg (188 lb) 01/01/2025 11:10 AM EDT Height 165.1 cm (5' 5 ) 01/01/2025 11:10 AM EDT Body Mass Index 31.28 01/01/2025 11:10 AM EDT documented in this encounter Progress Notes * Cedric Peter MD - 01/01/2025 11:15 AM EDT Images from the original note were not included. [place] Electrophysiology Consult Note [place] Cardiology [facility] Reason for visit: 01/01/2025 Patient is here today for a 6 month follow up. Patient states she feel good. Patient states she hassome chest pain which she describes as pins and needles in her mid sternal area that comes and goesquickly with and without activity.Patient has SOB, FOSTER, dizziness that comes and goes. Patient denies leg swelling, palpitations. There are episodes of A-fib marked as seen October 01, 2024 which are sinus rhythm with blocked PACs or PACs that are conducted as well as occasional PVCs 05/22/24 Patient here for bradycardia episodes per Stevie loop recorder, which was implanted on 04/09/2024. Says she was advised by someone at [facility] to go to the ED if she has symptoms. She hasn't had any, besides her usual SOB. Denies syncope and palpitations. She is doing well with no symptoms. HPI: Melissa Matos is a 74 y.o. year old with past medical history of hypothyroidism, GERD, COPDwho was seen by Dr. Monse Philip previously for palpitations. She had described this to be happeningat least 2-3 times a week and there [...] History: Procedure Laterality Date CHOLECYSTECTOMY SH: Social Drivers of Health Tobacco Use: Medium Risk (01/01/2025) Patient History Smoking Tobacco Use: Former Smokeless Tobacco Use: Never Passive Exposure: Not on file Alcohol Use: Not on file Financial Resource Strain: Not on file Food Insecurity: Not on file Transportation Needs: Not on file Physical Activity: Not on file Stress: Not on file Social Connections: Not on file Intimate Partner Violence: Unknown (10/21/2023) [place] Safety & Environment Fear of Current or Ex-Partner: Not on file Emotionally Abused: Not on file Physically Abused: Not on file Sexually Abused: Not on file Physically or Sexually Abused: Not on file Depression: Not on file Housing Stability: Not on file Utilities: Not on file Health Literacy: Not on file Allergies: Allergies Allergen Reactions Codeine Other Sulfamethoxazole-Trimethoprim Other Weight: 85.3kg Visit Vitals BP 135/83 (BP Location: Left arm, Patient Position: Sitting) Pulse 82 Ht 1.651 m (5' 5 ) Wt 85.3 kg (188 lb) SpO2 98% BMI 31.28 kg/m?? OB Status Postmenopausal Smoking Status Former BSA 1.98 m?? Meds: Current Outpatient Medications on File Prior to Visit Medication Sig Dispense Refill albuterol 90 mcg/actuation inhaler every 4 (four) hours. ALPRAZolam (Xanax) 0.25 mg tablet Take 0.25 mg by mouth if needed at bedtime. apixaban (Eliquis) 5 mg tablet Take 1 tablet (5 mg) by mouth two times daily. 180 tablet 3 levothyroxine (Synthroid, Levoxyl) 137 mcg tablet Take 137 mcg by mouth in the morning. pantoprazole (ProtoNix) 40 mg EC tablet 1 (one) time each day at the same time. No current facility-administered medications on file prior to visit. ROS: Review of Systems Cardiovascular: Positive for dyspnea on exertion. Respiratory: Positive for shortness of breath. Musculoskeletal: [...] any previous visit (from the past 4464 hours). Echo: 12/22/2023 Investigations: Holter monitor 10/14/2023: Impression: [...] with upper range of normal being 1.46 Assessment and Plan: -Palpitations s/p LOOP -Possible diagnosis of atrial fibrillation - Hypothyroidism - GERD LOOP reveals many episodes of bradycardia in 40's as well as PAC. No AF seen. I have changed LOOP setting for HR 30bpm. Most of the episodes that are marked as A-fib are misbinned due to PACs or PVCs. We will stop the anticoagulation and continue to monitor her. Will offer an echocardiogram to see the EF due to her PVCs Cedric Peter MD Cardiac Electrophysiology [facility] documented in this encounter Plan of Treatment Not on file documented as of this encounter Visit Diagnoses Diagnosis PVC (premature ventricular contraction)- Primary Other premature beats documented in this encounter Care Teams Respiratory Therapy Aide Relationship Specialty Start Date End Date Julisa Alfaro CNP [address] [place] [address], [facility] [place] [address] PCP - General Family Medicine 10/28/23 documented as of this encounter
--- NOTE | 2025-01-15 06:58 | CA_ITS ---
Patient Name: HILDA PARMAR MR#: [id number] : 1950 Exam Date: 01/15/2025 Ordering Doctor: CRISTIAN SINGH ECHOCARDIOGRAM REPORT PROCEDURE: CA ECHO DOPPLER COMPLETE INDICATIONS: PVC COMPARISON: None. DESCRIPTION: COMPLETE ECHOCARDIOGRAM Real-time transthoracic echocardiography with 2D, M-mode, spectral and color flow Doppler performed. QUALITY: Technical quality was good. LEFT VENTRICLE: Normal chamber size. Borderline left ventricular hypertrophy. Global left ventricular systolic function is normal. LV EF: Estimated left ventricular ejection fraction is 55-60% DIASTOLIC: Normal diastolic function. ATRIAL SEPTUM: LEFT ATRIUM: Normal chamber size. RIGHT ATRIUM: Normal chamber size. RIGHT VENTRICLE: Normal chamber size. Normal right ventricular systolic function. TRICUSPID VALVE: Normal mobility and thickness. No stenosis with trivial regurgitation. No evidence of pulmonary hypertension. RVSP 33 mmHg. MITRAL VALVE: Mildly thickened with normal mobility. No evidence of mitral valve stenosis. Mild mitral annular calcification. Mild mitral regurgitation. AORTIC VALVE: Normal trileaflet appearance. Thickened aortic valve. Normal leaflet mobility. No evidence of aortic valve stenosis. Mild aortic regurgitation. AORTIC ROOT: Normal diameter and appearance, measuring 3.5 cm. The ascending aorta is normal in size, measuring 3.6 cm. PULMONIC VALVE: Normal thickness and mobility. No stenosis. No regurgitation. PERICARDIUM: Trivial pericardial effusion versus anterior fat pad. IVC: Collapses with inspiration. Normal size. PLEURA: CONCLUSION: 1. Borderline left ventricular hypertrophy with normal systolic function. Estimated LVEF is 55 to 60%. 2. Normal right ventricular size and systolic function. 3. Mild mitral and aortic regurgitation. 4. Normal diastolic function. 5. Normal right-sided pressures. Adult Echocardiography Procedure Report Left Ventricle LVEDD (3.7 - 5.6 cm): 4.15 cm LVESD (2.2 - 4.0 cm): 3.05 cm LVIVS thickness (0.6 - 1.2 cm): 1.17 cm LVPW thickness (0.5 - 1.0 cm): 0.96 cm e': 0.13 m/s E - e': 5.92 LVOT Max Gradient: 4.92 mm[Hg] LVOT Area (cm2): 1.11 m/s Peak Velocity (LVOT): 1.11 m/s Mean Velocity (LVOT): 0.69 m/s LVOT Diameter 2.03 cm Left Ventricular Ejection Fraction: 55-60 % Left Atrium LA Volume Index (2D A2C): 35.29 ml/m2 Left Atrium Systolic Dimension: 2.84 cm Mitral Valve MV E to A Ratio: 0.92 Mitral Valve A-Wave Peak Velocity: 0.81 m/s Mitral Valve E-Wave Peak Velocity: 0.74 m/s Right Ventricle RV Internal Diastolic Dimension: 3.72 cm Aorta AO Root Diam: 3.54 cm Ascending Ao Diam: 3.56 cm Aortic Valve AoV Area (Peak Anthony): 2.97 cm2, 2.97 cm2 AoV Area (VTI): 2.96 cm2, 2.96 cm2 Deceleration [place]: 1.71 m/s2 Pressure Half-Time: 717.29 ms Peak Velocity(Antegrade Flow): 1.21 m/s Peak Gradient(Antegrade Flow): 5.86 mm[Hg] Mean Velocity(Antegrade Flow): 0.84 m/s Mean Gradient(Antegrade Flow): 3.11 mm[Hg] Velocity Time Integral: 26.53 cm Tricuspid Valve Peak Velocity (Regurgitant Flow): 2.72 m/s, 2.32 m/s, 2.43 m/s Pulmonic Valve Mean Gradient: 1.09 mm[Hg] Mean Velocity: 0.49 m/s Peak Velocity: 0.73 m/s Peak Gradient: 2.16 mm[Hg] Right Atrium Right Atrium Systolic Pressure: 62.88 ml, 62.88 ml Dictated by: Brady Kearney M.D. on 01/15/2025 at 18:07 Approved by: Brady Kearney M.D. on 01/15/2025 at 18:12
--- OUTSIDE RECORDS SUMMARY | 2025-01-15 07:11 | XMS_ITS | Clinical Summary ---
Author Organization [facility] Address [address] [place] [address] Care Team Providers Care Cold Mill Supervisor Name Role Phone Julisa Alfaro EZE Primary Care Provider [phone] Allergies Active Allergy Reactions Criticality Noted Date Comments Codeine Other 11/14/2023 Sulfamethoxazole-Trimethoprim Other 2023 Medications ALPRAZolam (Xanax) 0.25 mg tablet Take 0.25 mg by mouth if needed at bedtime. 01/17/2023 Active albuterol 90 mcg/actuation inhaler every 4 (four) hours. 01/18/2023 Active levothyroxine (Synthroid, Levoxyl) 137 mcg tablet Take 137 mcg by mouth in the morning. Active pantoprazole (ProtoNix) 40 mg EC tablet 1 (one) time each day at the same time. Active apixaban (Eliquis) 5 mg tabletIndications :Paroxysmal atrial fibrillation (CMS/HCC) Take 1 tablet (5 mg) by mouth two times daily. 180 tablet 3 07/04/2024 07/04/19 26 Active Active Problems Problem Noted Date Diagnosed Date Palpitations 03/20/2024 Paroxysmal atrial fibrillation 12/05/2023 Overview (12/05/2023): [id number]= 3 Assessment & Plan (12/05/2023 2:35 PM EDT): [id number] = 3 points Age, Female D/w pt [...] with Dr Denis, staff notified to call [facility] about her TTE and stress test to be scheduled. Sinusitis 11/14/2023 Anxiety 09/05/2018 Glaucoma 09/05/2018 Hypothyroidism 09/05/2018 Assessment & Plan (12/05/2023 2:35 PM EDT): Labs for TSH with reflex T4 ordered Encounters Date Type Department Care Team Description 01/01/2025 11:15 AM EDT Office Visit [place] [address] [place] [address] Cedric Peter MD PVC (premature ventricular contraction) (Primary Dx) 01/01/2025 Orders Only [facility] [address] [place] [address] Asia Duncan MA PVC (premature ventricular contraction) (Primary Dx) 12/13/2024 6:10 AM EDT Ancillary Procedure [facility] [address] [place] [phone] Awareness of heartbeats 12/13/2024 Orders Only [facility] [address] [place] [phone] Cedric Peter MD 11/14/2024 10:40 PM EDT Ancillary Procedure [facility] [address] [place] [phone] Awareness of heartbeats 11/14/2024 Orders Only [facility] [address] [place] [phone] Mis Masters MD from Last 3 Months Family History Medical History Relation Name Comments Angina Maternal Grandmother Relation Name Status Comments Father Maternal Grandmother Mother Social History Tobacco Use Types Packs/Day Years [...] on file Sexual Orientation Not on file Last Filed Vital Signs Vital Sign Reading Time Taken Comments Blood Pressure 135/83 01/01/2025 11:10 AM EDT Pulse 82 01/01/2025 11:10 AM EDT Temperature - - Respiratory Rate 16 04/09/2024 11:17 AM EDT Oxygen Saturation 98% 01/01/2025 11:10 AM EDT Inhaled Oxygen Concentration - - Weight 85.3 kg (188 lb) 01/01/2025 11:10 AM EDT Height 165.1 cm (5' 5 ) 01/01/2025 11:10 AM EDT Body Mass Index 31.28 01/01/2025 11:10 AM EDT Plan of Treatment Health Maintenance Due Date Last Done Comments Medicare Annual Wellness (AWV) 1950 Depression Screening 1960 Zoster Vaccines (1 of 2) 1998 Fall Risk Screening 2013 Pneumococcal Vaccine: 50+ Years (2 of 2 - PCV20 or PCV21) 06/03/2018 06/03/2017 COVID-19 Vaccine ( - season) 2024 03/20/2024, 04/04/2023, 04/20/2021, Additional history exists Influenza Vaccine (#1) 2025 , 04/04/2023, 03/30/2022, Additional history exists Adult Tetanus 08/27/2028 08/27/2018 HIB Vaccines Aged Out No longer eligi ble based on patient's age to complete this topic HPV Vaccines Aged Out No longer eligi ble based on patient's age to complete this topic IPV Vaccines Aged Out No longer eligi ble based on patient's age to complete this topic Meningococcal B Vaccine Aged Out No l onger eligible based on patient's age to complete this topic Meningococcal Vaccine Aged Out No gladys addison eligible based on patient's age to complete this topic Rotavirus Vaccines Aged Out No longer eligible based on patient's age to complete this topic Medical Devices Implanted Type Area Explosive Operator Grenade Device Identifier Shelf Expiration Date Model / Serial / Lot Monitor,Lino Gillespie,Dxii+[facility] - [id number] - [id number] Implanted:Qty: 1 on 04/09/2024 by Cedric Peter MD at [facility] Implantable Loop Recorder [employer] 05/22/2025 [id number] / [id number] / Procedures Procedure Name Priority Date/Time Associated Diagnosis Comments CARDIAC DEVICE CHECK CHECK - REMOTE Routine 01/11/2025 12:38 PM EDT Awareness of heartbeats CARDIAC DEVICE CHECK - REMOTE - LOOP RECORDER (ILR) Routine 12/13/2024 12:00 AM EDT CARDIAC DEVICE CHECK CHECK - REMOTE Routine 11/22/2024 1:41 PM EDT Awareness of heartbeats CARDIAC DEVICE CHECK - REMOTE - LOOP RECORDER (ILR) Routine 11/14/2024 12:00 AM EDT CARDIAC DEVICE CHECK CHECK - REMOTE Routine 10/25/2024 10:43 AM EDT Awareness of heartbeats from Last 3 Months Results * CARDIAC DEVICE CHECK - REMOTE - LOOP RECORDER (ILR) (01/11/2025 12:38 PM EDT) Only the most recent of3 resultswithin the time period is included. BSA 1.98 m2 CPACS us Cedric Peter MD CV IMPLANTABLE CARDIAC DEVICE RI OCEDURES Final Result CPACS * Cardiac device check - Remote loop recorder (ILR) (12/13/2024 12:00 AM EDT) Only the most recent of2 resultswithin the time period is included. Anatomical Region Laterality Modality Other 12/13/2024 Cedric Peter MD CV IMPLANTABLE CARDIAC DEVICE RI OCEDURES Final Result from Last 3 Months Insurance [employer] Care Teams Cold [place] Supervisor Relationship Specialty Start Date End Date Julisa Alfaro CNP [facility] [place] [address] PCP - General Family Medicine 10/28/23
--- OUTSIDE RECORDS SUMMARY | 2025-01-15 07:11 | XMS_ITS | Clinical Summary ---
Author Organization [facility] Address [address] [facility] [place] [address] Care Team Providers Care Steel Tier Name Role Phone Unavailable Primary Care Provider Unavailabl e Social History Tobacco Use Types Packs/Day Years Used Date Smoking Tobacco: Never Assessed Comments Unknown Sex and Gender Information Value Date Recorded Sex Assigned at Not on file Legal Sex Female 6:37 PM EDT Gender Identity Not on file Sexual Orientation Not on file Last Filed Vital Signs Vital Sign Reading Time Taken Comments Blood Pressure 128/74 04/09/2021 12:00 PM EDT Pulse - - Temperature - - Respiratory Rate - - Oxygen Saturation - - Inhaled Oxygen Concentration - - Weight 87.8 kg (193 lb 9.6 oz) 04/09/2021 12:00 PM EDT Height 165.1 cm (5' 5 ) 04/09/2021 12:00 PM EDT Body Mass Index 32.22 04/09/2021 12:00 PM EDT Plan of Treatment Not on file
--- OUTSIDE RECORDS SUMMARY | 2025-01-15 07:11 | XMS_ITS | Encounter Summary ---
Author Organization [facility] Address [address] [place] [address] Care Team Providers Care Shipper Name Role Phone Julisa Alfaro PAROLE OFFICER Primary Care Provider [phone] Encounter Details Date Type Department Care Team (Late st Contact Info) Description 12/13/2024 Orders Only [facility] [address] [place] [address] Cedric Peter MD [address] [place] [address] Social History Tobacco Use Types Packs/Day Years Used Date Smoking Tobacco: Former Cigarettes Q uit: 1998 Smokeless Tobacco: Never Alcohol Use Standard Drinks/Week Comments Yes 7 (1 standard drink = 0.6 oz pur e alcohol) occasional [place] Safety & Environment Answer Date Rec orded Fear of Current or Ex-Partner Not on file Emotionally Abused Not on file 10/21/2023 Physically Abused Not on file 10/21/2023 Sexually Abused Not on file 10/21/2023 Physically or Sexually Abused Not on file Comments Unknown Sex and Gender Information Value Date Recorded Sex Assigned at Not on file Legal Sex Female 10:12 AM EDT Gender Identity Not on file Sexual Orientation Not on file documented as of this encounter Plan of Treatment Not on file documented as of this encounter Procedures Procedure Name Priority Date/Time Associated Diagnosis Comments CARDIAC DEVICE CHECK - REMOTE - LOOP RECORDER (ILR) Routine 12/13/2024 12:00 AM EDT documented in this encounter Results * Cardiac device check - Remote loop recorder (ILR) (12/13/2024 12:00 AM EDT) Anatomical Region Laterality Modality Other 12/13/2024 us Cedric Peter MD CV IMPLANTABLE CARDIAC DEVICE DC OCEDURES Final Result documented in this encounter Visit Diagnoses Not on filedocumented in this encounter Care Teams Shipper Relationship Specialty Start Date End Date Julisa Alfaro CNP [address] [place] [address], [facility] [address] [place] [id number] PCP - General Family Medicine 10/28/23 documented as of this encounter
--- OUTSIDE RECORDS SUMMARY | 2025-01-15 07:11 | XMS_ITS | CCD ---
Author Organization [facility] [employer]iniSyut Care Team Providers Care President [employer] Name Role Phone Ousmane De La Torre Unavailable Vernon Bajwa Unavailable JL JULISA Admitting Unavailable JL, JULISA Attending [...] Primary Care Unavailable JL, JULISA Consulting Unavailable Ousmane De La Torre Primary Care Unavailable Tavo Malhotra Admitting Unavailable Tavo Malhotra Attending Unavailable Jl Julisa Christina Admitting Unavailable Jl, Julisa Vasquez Attending Unavailable Ousmane De La Torre Primary Care Unavailable CRISTIAN SINGH Referring Unavailable FRANCISCO, CRISTIAN Attending Unavailable FRANCISCO, CRISTIAN Attending Unavailable FRANCISCO, CRISTIAN Attending Unavailable FRANCISCO, CRISTIAN Referring Unavailable FRANCISCO, CRISTIAN Referring Unavailable FRANCISCO, CRISTIAN Referring Unavailable FRANCISCO, CRISTIAN Referring Unavailable FRANCISCO, CRISTIAN Referring Unavailable FRANCISCO, CRISTIAN Referring Unavailable FRANCISCO, CRISTIAN Admitting Unavailable FRANCISCO, CRISTIAN Attending Unavailable FRANCISCO, CRISTIAN Referring Unavailable FRANCISCO, CRISTIAN Referring Unavailable FRANCISCO, CRISTIAN Referring Unavailable FRANCISCO, CRISTIAN Referring Unavailable Allergies Allergy Classification Reported Allergen(s) Allergy Type Date of Onset Reaction(s) Facility (2 sources) Codeine; Translations: [CODEINE] Drug Allergy 3 [facility] Repository (1 source) Sulfamethoxazole / Trimethoprim Drug Allergy [facility] Repository (1 source) Sulfamethoxazole / Trimethoprim; Translations: [SULFAMETHOXAZOLE-TR IMETHOPRIM] Drug Allergy 4 [facility] Repository Medications Current Medications Medication [...] suspension (16 sources) Corticosteroid Start: 09-21-2021 Kenalog-40 11 Apr, 2022 20 mg Start: 09-21-2021 Kenalog -40 mg Sep, 20 mg Start: 01-19-2021 Kenalog -40 mg Jan, 20 mg Problems Active Problems Problem Classification Problem Date Documented Da te Episodic/Chronic Abdominal hernia (3 sources) Hiatal hernia; Translations: [Diaphragmatic hernia without obstruction or gangrene] Episodic Abdominal pain (1 source) Epigastric pain Episodic Cardiac dysrhythmias (2 sources) Ventricular premature depolarization; Translations: [Ventricular premature depolarization] Onset: 5 Chronic Disorders of lipid metabolism (1 source) [...] sources) Dysphagia; Translations: [Dysphagia, unspecified] Episodic Other screening for suspected conditions (not mental disorders or infectious disease) (1 source) Encounter for screening mammogram for malignant neoplasm of breast; Translations: [Encounter for screening mammogram for malignant neoplasm of breast] Onset: 5 Episodic Screening and history of mental health and substance abuse codes (4 sources) Personal history of nicotine dependence; Translations: [PERSONAL HISTORY OF NICOTINE DEPEND] Onset: 2 Episodic Unclassified (3 sources) CONTACT W/AND (SUSP) EXPOS COVID-19; Translations: [CONTACT W/AND (SUSP) EXPOS COVID-19] Onset: 1 Unclassified (1 source) OTHER SPECIFIED COUGH; Translations: [OTHER SPECIFIED COUGH] Onset: 1 Past or Other Problems Problem Classification Problem Date Documented Da te Episodic/Chronic Cardiac dysrhythmias (2 sources) Palpitations; Translations: [Palpitations] Onset: 03-23-2024 Episodic Deficiency and other anemia (1 source) Anemia, unspecified; Translations: [ANEMIA UNSPECIFIED] Onset: 10-09-2021 Episodic Diabetes mellitus without complication (1 source) Other abnormal glucose; Translations: [OTHER ABNORMAL GLUCOSE] Onset: 10-09-2021 Episodic Malaise and fatigue (4 sources) Other fatigue; Translations: [OTHER FATIGUE] Onset: 10-08-2021 Episodic Other non-traumatic joint disorders (1 source) Pain in left shoulder; Translations: [Pain in left shoulder] Onset: 05-31-2024 Episodic Unclassified (1 source) CONTACT W/AND (SUSP) EXPOS COVID-19; Translations: [CONTACT W/AND (SUSP) EXPOS COVID-19] Onset: 05-05-2021 Results Test Name Value Interpretation Reference Range Facility Office Visiton 01-01-2025 Follow-up visit [id number] Hilda Matos 1950 Date Provider Department Center 01/01/2025 CRISTIAN BEAN [facility] Family History Problem Relation Age of Onset Angina Maternal Grandmother Family Status - Relation Status Age at Mother Father Maternal Grandmother Level of Service:43232 [place] OFFICE/OUTPATIENT ESTABLISHED LOW MDM 20 MIN Normal [facility] Orders Onlyon 11-14-2024 Orders Only [id number] Hilda Matos 1950 Date Provider Department Center 11/14/2024 A[facility]O SHORT [facility]ARD [facility] Family History Problem Relation Age of Onset Angina Maternal Grandmother Family Status - Relation Status Age at Maternal Grandmother Normal [facility] MM screening mammo BI w/CADo n 08-28-2024 MM screening mammo BI w/CAD [facility] [address] [place] [address] Mammography Report Signed Patient: Hilda Matos MR#: [id number] : 1950 Acct:[id number] Age/Sex: 74 / F Adm Date: 08/28/24 Loc: [place] Room: Type: [facility] Attending Dr: Julisa Parikh [employer] INTEGRATOR-C Ordering Provider: Julisa Parikh CNP Date of Service: 08/28/24 Procedure(s): MM screening mammo BI w/CAD Accession Number(s): ([id number]) MM/MM screening mammo BI w/CAD: Z12.39 Copies to: MD Julisa Daniels CNP CLINICAL DATA: Screening for malignancy. BILATERAL SCREENING MAMMOGRAMS - FULL FIELD DIGITAL WITH TOMOSYNTHESIS AND CAD Tomosynthesis craniocaudal and mediolateral oblique views of both breasts were obtained using low- dose digital technique. Comparison is made to prior studies from May 22, 2020 through July 2023. This examination was reviewed with the aid of CAD. There are scattered fibroglandular densities. Benign and vascular calcifications are present. There are no developing masses, typically malignant calcifications or architectural distortion. There has been no significant interval change. MM/MM screening mammo BI w/CAD IMPRESSION: NO MAMMOGRAPHIC EVIDENCE OF MALIGNANCY. ROUTINE FOLLOW-UP IS RECOMMENDED IN ONE YEAR. RESULT CODE: 2 Benign Findings(s) DENSITY CODE: 2 (approximately 25-50% glandular) FOLLOW UP: 1YR The false-negative rate of mammography is approximately 10-percent. Management of a palpable abnormality must be based on clinical grounds. Patient was entered into a reminder system with a target due date for the next mammogram. Impression dictated by: Janeth Miguel M.D.08/28/2024 2:45 PM Dictation Location: [facility] Dictated By: Janeth Miguel MD 08/28/24 1443 Signed By: 08/28/24 1445 Normal [facility] Office Visiton 05-22-2024 Follow-up visit [id number] Hilda Matos 1950 F Date Provider Department Center 05/22/2024 CRISTIAN BEAN [facility] Family History Problem Relation Age of Onset Angina Maternal Grandmother Family Status - Relation Status Age at Maternal Grandmother Level of Service:37604 [place] OFFICE/OUTPATIENT ESTABLISHED LOW MDM 20 MIN Normal [facility] HPon 04-09-2024 [facility] Electrophysiology Consult Note [place] [facility] - [facility] Reason for visit: HPI: Hilda [...] on file Intimate Partner Violence: Unknown (10/21/2023) [place] Safety & Environment Fear of Current or [...] lead EKG: (more content not included)... Normal [facility] NURSNOTEon 04-09-2024 NURSNOTE RN educated pt on d/ c instructions. This included: site care, limited physical activity, resume normal diet, future appointments, medications, and moderate sedation instructions. RN educated pt on when to notify physician and when to go to the hospital. RN encouraged pt to voice any questions or concerns, and answered any questions or concerns if pt verbalized. Normal [facility] Office Visiton 03-20-2024 Follow-up visit [id number] Hilda Matos 1950 F Date Provider Department Center 03/20/2024 C[facility]STIAN BEAN [facility] Family History Problem Relation Age of Onset Angina Maternal Grandmother Family Status - Relation Status Age at Maternal Grandmother Level of Service:97719 [place] OFFICE/OUTPATIENT [facility] MODERATE MDM 45 MINUTES Normal [facility] CT CHEST WO CONon 01-14-2022 [...] ROBERTA COLLAZO Date: 2022-01-14 16:24 Normal [facility] INSULINon 10-09-2021 Insulin 5.2 uIU/mL Normal 2.6-24.9 [facility] Comment on above: Performed By: #### I NSULIN #### [facility] [address] [place] [address] Dr. Raf Houston CBC AUTO DIFFon 10-08-2021 BASO # 0.1 103/ul Normal 0.0-0.1 [facility] Comment on above: Performed By: #### C BC #### [facility] [address] [place] [address] Dr. Raf Houston Basophils/100 WBC (Bld) 1.1 % Normal 0.2-2.0 [facility] Comment on above: Performed By: #### C BC #### [facility] [address] [place] [address] Dr. Raf Houston EO # 0.1 103/ul Normal 0.0-0.7 [facility] Comment on above: Performed By: #### C BC #### [facility] [address] [place] [address] Dr. Raf Houston Eosinophils/100 WBC (Bld) 1.6 % Normal 0.9-7.0 [facility] Comment on above: Performed By: #### C BC #### [facility] [address] [place] [address] Dr. Raf Houston Erythrocyte distribution width (RBC) [Ratio] 13.2 % Normal 11.0-15.0 [facility] Comment on above: Performed By: #### C BC #### [facility] [address] [place] [address] Dr. Raf Houston Hematocrit (Bld) [Volume fraction] 45.2 % Normal 36.0-48.0 [facility] Comment on above: Performed By: #### C BC #### [facility] [address] [place] [address] Dr. Raf Houston Hemoglobin (Bld) [Mass/Vol] 14.9 g/dL Normal 12.0-16.0 [facility] Comment on above: Performed By: #### C BC #### [facility] [address] [place] [address] Dr. Raf Houston IG # 0.01 10e3/ul Normal 0.00-0.03 [facility] Comment on above: Performed By: #### C BC #### [facility] [address] [place] [address] Dr. Raf Houston IG % 0.2 % Normal 0.0-0.5 [facility] Comment on above: Performed By: #### C BC #### [facility] [address] [place] [address] Dr. Raf Houston LYMPH # 1.5 103/ul Normal 1.2-3.8 [facility] Comment on above: Performed By: #### C BC #### [facility] [address] [place] [address] Dr. Raf Houston Lymphocytes/100 WBC (Bld) 33.9 % Normal 20.5-60.0 [facility] Comment on above: Performed By: #### C BC #### [facility] [address] [place] [address] Dr. Raf Houston MANUAL DIFF REQ NO Normal [facility] Comment on above: Performed By: #### C BC #### [facility] [address] [place] [address] Dr. Raf Houston MCH (RBC) [Entitic mass] 30.6 pg Normal 26.7-34.0 [facility] Comment on above: Performed By: #### C BC #### [facility] [address] [place] [address] Dr. Raf Houston MCHC (RBC) [Mass/Vol] 33.0 g/dL Normal 29.9-35.2 [facility] Comment on above: Performed By: #### C BC #### [facility] [address] [place] [address] Dr. Raf Houston MCV (RBC) [Entitic vol] 92.8 fL Normal 81.0-99.0 [facility] Comment on above: Performed By: #### C BC #### [facility] [address] [place] [address] Dr. Raf Houston MONO # 0.5 103/ul Normal 0.3-0.8 [facility] Comment on above: Performed By: #### C BC #### [facility] [address] [place] [address] Dr. Raf Houston Monocytes/100 WBC (Bld) 11.0 % Normal 1.7-12.0 [facility] Comment on above: Performed By: #### C BC #### [facility] [address] [place] [address] Dr. Raf Houston NEUT # 2.3 103/ul Normal 1.4-6.5 [facility] Comment on above: Performed By: #### C BC #### [facility] [address] [place] [address] Dr. Raf Houston Neutrophils/100 WBC (Bld) 52.2 % Normal 43.0-75.0 [facility] Comment on above: Performed By: #### C BC #### [facility] [address] [place] [address] Dr. Raf Houston Platelet mean volume (Bld) [Entitic vol] 9.6 fL Normal 9.5-13.5 [facility] Comment on above: Performed By: #### C BC #### [facility] [address] [place] [address] Dr. Raf Houston PLT 215 103/ul Normal 150-450 [facility] Comment on above: Performed By: #### C BC #### [facility] [address] [place] [address] Dr. Raf Houston RBC 4.87 106/ul Normal 4.20-5.40 [facility] Comment on above: Performed By: #### C BC #### [facility] [address] [place] [address] Dr. Raf Houston WBC 4.5 103/ul Normal 4.0-11.0 [facility] Comment on above: Performed By: #### C BC #### [facility] [address] [place], [place] [id number] Dr. Raf Houston FREE THYROXINE INDEX T7on FTI 3.61 Normal [facility] Comment on above: Performed By: #### T 7, CMP, TSH, LIPID #### [facility] [address] [place] [address] Dr. Raf Houston T3U 41.0 % Critically high 23.5-40.5 [facility] Comment on above: Performed By: #### T 7, CMP, TSH, LIPID #### [facility] [address] [place] [address] Dr. Raf Houston T4 [Mass/Vol] 8.80 ug/dL Normal 4.80-13.90 [facility] Comment on above: Performed By: #### T 7, CMP, TSH, LIPID #### [facility] [address] [place] [address] Dr. Raf Houston GLYCOHEMOGLOBIN A1Con 2021 ADA RECOMMENDATION SEE BELOW Normal [facility] Comment on above: Result Comment: ADA RECOMMENDED LIMIT 4.0 - 6.0 ADA THERAPEUTIC TARGET < 7.0 ACTION SUGGESTED > 7.0 Performed By: #### A 1C #### [facility] [address] [place] [address] Dr. Raf Houston Glucose [Mass/Vol] 111 mg/dL Normal [facility] Comment on above: Performed By: #### A 1C #### [facility] [address] [place] [address] Dr. Raf Houston HbA1c (Bld) [Mass fraction] 5.5 % Normal 4.5-6.2 [facility] Comment on above: Performed By: #### A 1C #### [facility] [address] [place] [address] Dr. Raf Houston IRONon 10-08-2021 Iron [Mass/Vol] 139.0 ug/dL Normal 50.0-170.0 [facility] Comment on above: Performed By: #### I ISABEL #### [facility] [address] [place] [address] Dr. Raf Houston LIPID PROFILEon 10-08-2021 CHOL-HDL RATIO NORM SEE BELOW Normal [facility] Comment on above: Result Comment: 3.3 - 4.4 LOW RISK 4.4 - 7.1 AVERAGE RISK 7.1 - 11.0 MODERATE RISK >11.0 HIGH RISK Performed By: #### T 7, CMP, TSH, LIPID #### [facility] [address] [address] [address] Raf Houston Cholesterol [Mass/Vol] 189 mg/dL Normal <=200 [facility] Comment on above: Performed By: #### T 7, CMP, TSH, LIPID #### [facility] [address] [address] [address] Raf Houston Cholesterol in HDL [Mass/Vol] 63 mg/dL Critically high 40-60 [facility] Comment on above: Performed By: #### T 7, CMP, TSH, LIPID #### [facility] [address] [place] [address] Dr. Raf Houston Cholesterol in LDL [Mass/Vol] 110.0 mg/dL Normal [facility] Comment on above: Performed By: #### T 7, CMP, TSH, LIPID #### [facility] [address] [address] [address] Raf Houston Cholesterol.total/Ch olesterol in HDL [Mass ratio] 3.0 {ratio} Normal [facility] Comment on above: Performed By: #### T 7, CMP, TSH, LIPID #### [facility] [address] [address] [address] Raf Houston HDL NORMAL > or = 60 mg/dl - LO W CARDIOVASCULAR RISK <40 mg/dl - HIGH CARDIOVASCULAR RISK Normal [facility] Comment on above: Performed By: #### T 7, CMP, TSH, LIPID #### [facility] [address] [address] [address] Raf Houston LDL CALC NORMAL SEE BELOW Normal [facility] Comment on above: Result Comment: <100 mg/dl OPTIMAL 100 - 129 mg/dl NEAR OR ABOVE OPTIMAL 130 - 159 mg/dl BORDERLINE HIGH 160 - 189 mg/dl HIGH >190 mg/dl VERY HIGH Performed By: #### T 7, CMP, TSH, LIPID #### [facility] [address] [address] [address] Raf Houston Triglyceride [Mass/Vol] 80 mg/dL Normal <=150 [facility] Comment on above: Performed By: #### T 7, CMP, TSH, LIPID #### [facility] [address] [address] [address] Raf Houston VLDL CALC 16.0 mg/dL Normal [facility] Comment on above: Performed By: #### T 7, CMP, TSH, LIPID #### [facility] [address] [address] [address] Raf Houston PROF 14(COMP METB)on 022 Albumin [Mass/Vol] 3.8 g/dL Normal 3.4-5.[address] [facility] Comment on above: Performed By: #### T 7, CMP, TSH, LIPID #### [facility] [address] [address] [address] Raf Houston Albumin/Globulin [Mass ratio] 1.1 {ratio} Normal [facility] Comment on above: Performed By: #### T 7, CMP, TSH, LIPID #### [facility] [address] [address] [address] Raf Houston ALP [Catalytic activity/Vol] 72 U/L Normal 46-116 [facility] Comment on above: Performed By: #### T 7, CMP, TSH, LIPID #### [facility] [address] [address] [address] Raf Houston ALT [Catalytic activity/Vol] 35 U/L Normal 14-59 [facility] Comment on above: Performed By: #### T 7, CMP, TSH, LIPID #### [facility] [address] [address] [address] Raf Houston Anion gap [Moles/Vol] 9.7 mmol/L Normal [facility] Comment on above: Performed By: #### T 7, CMP, TSH, LIPID #### [facility] [address] [address] [address] Raf Houston AST [Catalytic activity/Vol] 18 U/L Normal 15-37 [facility] Comment on above: Performed By: #### T 7, CMP, TSH, LIPID #### [facility] [address] [address] [address] Raf Houston Bilirubin [Mass/Vol] 0.6 mg/dL Normal 0.2-1.0 [facility] Comment on above: Performed By: #### T 7, CMP, TSH, LIPID #### [facility] [address] [place] [address] Dr. Raf Houston Calcium [Mass/Vol] 8.7 mg/dL Normal 8.5-10.[address] [facility] Comment on above: Performed By: #### T 7, CMP, TSH, LIPID #### [facility] [address] [place] [address] Dr. Rfa Houston Chloride [Moles/Vol] 103 mmol/L Normal 98-107 [facility] Comment on above: Performed By: #### T 7, CMP, TSH, LIPID #### [facility] [address] [place] [address] Dr. Raf Houston CO2 [Moles/Vol] 31.6 mmol/L Normal 21.0-32.0 [facility] Comment on above: Performed By: #### T 7, CMP, TSH, LIPID #### [facility] [address] [place] [address] Dr. Raf Houston Creatinine [Mass/Vol] 0.72 mg/dL Normal 0.55-1.02 [facility] Comment on above: Performed By: #### T 7, CMP, TSH, LIPID #### [facility] [address] [place] [address] Dr. Raf Houston EGFR-AF ANDORRAN >60 Normal >=60 [facility] Comment on above: Performed By: #### T 7, CMP, TSH, LIPID #### [facility] [address] [place] [address] Dr. Raf Houston EGFR-NON AF ANDORRAN >60 Normal >=60 [facility] Comment on above: Performed By: #### T 7, CMP, TSH, LIPID #### [facility] [address] [place], [place] [id number] Dr. Raf Houston Globulin (S) [Mass/Vol] 3.4 g/dL Normal [facility] Comment on above: Performed By: #### T 7, CMP, TSH, LIPID #### [facility] [address] [place] [address] Dr. Raf Houston Glucose [Mass/Vol] 103 mg/dL Normal 74-106 [facility] Comment on above: Performed By: #### T 7, CMP, TSH, LIPID #### [facility] [address] [place] [address] Dr. Raf Houston Potassium [Moles/Vol] 4.3 mmol/L Normal 3.5-5.1 [facility] Comment on above: Performed By: #### T 7, CMP, TSH, LIPID #### [facility] [address] [place] [address] Dr. Raf Houston Protein [Mass/Vol] 7.2 g/dL Normal 6.1-8.2 [facility] Comment on above: Performed By: #### T 7, CMP, TSH, LIPID #### [facility] [address] [place] [address] Dr. Raf Houston Sodium [Moles/Vol] 140 mmol/L Normal 136-145 [facility] Comment on above: Performed By: #### T 7, CMP, TSH, LIPID #### [facility] [address] [place] [address] Dr. Rfa Houston Urea nitrogen [Mass/Vol] 13.0 mg/dL Normal 7.0-18.0 [facility] Comment on above: Performed By: #### T 7, CMP, TSH, LIPID #### [facility] [address] [place] [address] Dr. Raf Houston Urea nitrogen/Creatinine [Mass ratio] 18.1 mg/mg Normal [facility] Comment on above: Performed By: #### T 7, CMP, TSH, LIPID #### [facility] [address] [place] [address] Dr. Raf Houston TSHon 10-08-2021 TSH 0.471 uIU/mL Normal 0.470-4.680 [facility] Comment on above: Performed By: #### T 7, CMP, TSH, LIPID #### [facility] [address] [place], [place] [address] Dr. Raf Houston TSH RANGE SEE BELOW Normal [facility] Comment on above: Result Comment: <0.3 4 UIU/ml HYPERTHYROID 0.34-5.60 UIU/ml EUTHYROID >5.60 UIU/ml HYPOTHYROID Performed By: #### T 7, CMP, TSH, LIPID #### [facility] [address] [place], [place] [address] Dr. Raf Houston Covid-19 PCR ([facility])on 04-14 SARS-CoV-2 (COVID-19) RNA NAHED+probe Ql (Unsp spec) Not detected Normal NOT DETECTED [facility] Comment on above: Result Comment: This test is not yet approved or cleared by the [place] FDA. When there are no FDA-approved or cleared tests available, and other criteria are met, FDA can make tests available under an emergency access mechanism called an Emergency Use Authorization (EUA). The EUA for this test is supported by the [place] of Health and Human Service's (HHS's) declaration [...] SARS-CoV-2. Performed By: #### C VDTBH #### [facility] [address] [place], [place] [address] Dr. Raf Houston Outside Colonoscopyon 2019 Outside Colonoscopy [id number] 0CD:127 Normal [facility] Lab Reportson 01-22-2020 Lab Reports [id number] 0CD:127 [facility] Consent for Procedure/Surger yon 01-02-2020 Consent for Procedure/Surgery [id number] 0CD:127 [facility] Facesheeton 01-01-2020 Facesheet [id number] 0CD:127 [facility] Ambulatory Clinical Summaryo n 12-28-2019 Ambulatory Clinical Summary {[id number] 01-05}[id number] [facility] Consultation Noteon 12-24-19 20 Consultation Note [id number]:127 [facility] Lab Reportson 12-24-2019 Lab Reports [id number] 0CD:127 [facility] Physician Referralon 020 Physician Referral [id number] 0CD:127 [facility] Vital Signs Date Time Vital Sign Value Performing Clinician Facility 10-06-2022 10:45-0400 Body height 165.1 cm Vernon Bajwa Other [facility] 10-06-2022 10:45-0400 Body mass index (BMI) [Ratio] 32.61 kg/m2 Vernon Bajwa Other [facility] 10-06-2022 10:45-0400 Body weight 88.91 kg Vernon Bajwa Other [facility] 10-06-2022 10:45-0400 Diastolic blood pressure 85 mm[Hg] Vernon Bajwa Other [facility] 10-06-2022 10:45-0400 Systolic blood pressure 132 mm[Hg] Vernon Garett Other [facility] 04-07-2022 11:00-0400 Body height 165.1 cm Vernon Garett Other [facility] 04-07-2022 11:00-0400 Body mass index (BMI) [Ratio] 32.28 kg/m2 Vernon Garett Other [facility] 04-07-2022 11:00-0400 Body weight 88 kg Vernon Garciaack Other [facility] 04-07-2022 11:00-0400 Diastolic blood pressure 89 mm[Hg] Vernon Garett Other [facility] 04-07-2022 11:00-0400 Systolic blood pressure 127 mm[Hg] Vernon Garett Other [facility] Encounters Encounter Date Encounter Type Care Provider Facility Start: 01-11-2025 ambulatory [facility] Start: 01-01-2025 End: 01-01-2025 ambulatory [facility] Start: 11-22-2024 ambulatory [facility] Start: 10-25-2024 ambulatory [facility] Start: 09-17-2024 ambulatory [facility] Start: 08-30-2024 ambulatory [facility] Start: 08-28-2024 End: 08-28-2024 ambulatory Julisa Parikh Facility:[facility] Start: 06-28-2024 ambulatory [facility] Start: 06-01-2024 ambulatory [facility] Start: 05-31-2024 End: 05-31-2024 ambulatory Ousmane De La Torre Facility:[facility] Start: 05-29-2024 ambulatory [facility] Start: 05-22-2024 End: 05-22-2024 ambulatory [facility] Start: 05-16-2024 ambulatory [facility] Start: 05-02-2024 ambulatory [facility] Start: 04-09-2024 End: 04-09-2024 ambulatory [facility] Start: 03-20-2024 End: 03-20-2024 ambulatory [facility] Start: 10-06-2022 End: 10-06-2022 ambulatory Vernon Bajwa Other [facility] Start: 10-06-2022 Office outpatient visit 15 minutes Vernon Bajwa [facility] Start: 04-07-2022 End: 04-07-2022 ambulatory Vernon Bajwa Other [facility] Start: 04-07-2022 Office outpatient visit 15 minutes Vernon aBjwa [facility] Start: 01-14-2022 End: 01-15-2022 ambulatory JULISA PARIKH Facility:[facility] Start: 01-12-2022 End: 01-12-2022 ambulatory Vernon Bajwa Other [facility] Start: 01-12-2022 Telephone encounter Vernon Sewell ck [facility] Start: 10-19-2021 End: 10-20-2021 ambulatory JULISA CLEARYMER Facility:[facility] Start: 10-08-2021 End: 10-09-2021 ambulatory JULISA PARIKH Facility:[facility] Start: 09-20-2021 End: 09-20-2021 ambulatory Ousmane De La Torre Other [facility] Start: 09-20-2021 Encounter by [facility] Start: 05-05-2021 End: 05-05-2021 ambulatory JULISA PARIKH Facility:[facility] Payers Date Payer Category Payer Unknown [id number] 2024 Self-pay 2022 Unknown [id number] 1961 Medicare [id number] 2.1 [id number] 1961 Unknown [id number] 2.16.8 [id number] 1948 Unknown [id number] 2.16.84 [id number] 1948 Unknown [id number] 2.16.84 [id number] 1948 Unknown [id number] 2.16.84 [id number] 1948 Unknown [id number] 2.16.84 [id number] Unknown [id number] 2.16.8 [id number] Unknown [id number] 2.16.8 [id number] Social History Date Type Detail Facility Sex Assigned At [facility] Progress note 01-01-2025 Note Date & Type Note Facility 01-01-2025 Note [facility] Electrophysiology Consult Note [facility] Cardiology - [facility] Reason for visit: 01/01/2025 Patient is here today for a 6 month follow up. Patient states she feel good. Patient states she has some chest pain which she describes as pins and needles in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
--- OUTSIDE RECORDS SUMMARY | 2025-01-15 07:11 | XMS_ITS | Encounter Summary ---
Author Organization [facility] Address [address] [place] [address] Care Team Providers Care Packaging Operator Name Role Phone Julisa Alfaro SERVICE CENTER SUPERVISOR Primary Care Provider [phone] Encounter Details Date Type Department Care Team (Late st Contact Info) Description 10/12/2024 Orders Only [facility] [address] [place] [address] Cedric Peter MD [address] [place] [address] Social History Tobacco Use Types [...] Diagnosis Comments CARDIAC DEVICE CHECK - REMOTE ALERT - LOOP RECORDER (ILR) Routine 10/12/2024 12:00 AM EDT documented in this encounter Results * Cardiac device check - Remote alert loop recorder (ILR) (10/12/2024 12:00 AM EDT) Anatomical Region Laterality Modality Other 10/12/2024 Cedric Peter MD CV IMPLANTABLE CARDIAC DEVICE MO OCEDURES Final Result documented in this encounter Visit Diagnoses Not on filedocumented in this encounter Care Teams Packaging Operator Relationship Specialty Start Date End Date Julisa Alfaro CNP [address] [place] [address], [facility] [place] [phone] PCP - General Family Medicine 10/28/23 documented as of this encounter
--- OUTSIDE RECORDS SUMMARY | 2025-01-15 07:11 | XMS_ITS | Encounter Summary ---
Author Organization [facility] Address [address] [place] [address] Care Team Providers Care Service Employee Name Role Phone Julisa Alfaro EZE Primary Care Provider [phone] Reason for Referral * Imaging (Routine) - Pending Review Specialty Diagnoses / Procedures Referred By Noé tristan Referred To Contact Cardiology Diagnoses PVC (premature ventricular contraction) Procedures Transthoracic echo (TTE) complete Cedric Peter MD [address] [place] [address] Phone: tel: fax: Referral ID Status Reason Start Date Expiration Date Visits Requested Visits Authorized [id number] Pending Review Perform Procedure 01/01/2025 01/01/2026 1 1 Encounter Details Date Type Department Care Team (Late st Contact Info) Description 01/01/2025 Orders Only [facility] [address] [place] [address] Asia Duncan MA PVC (premature ventricular contraction) (Primary Dx) Social [...] as of this encounter Plan of Treatment Scheduled Orders Name Type Priority Associated Diagnoses Orde r Schedule Transthoracic echo (TTE) complete Echocardiography Routine PVC (premature ventricular contraction) Expected: 01/01/2025 (Approximate), Expires: 01/01/2027 documented as of this encounter Visit Diagnoses Diagnosis PVC (premature ventricular contraction)- Primary Other premature beats documented in this encounter Care Teams Service Employee Relationship Specialty Start Date End Date Julisa Alfaro CNP [address] [place] [address], [facility] [place] [address] PCP - General Family Medicine 10/28/23 documented as of this encounter
--- OUTSIDE RECORDS SUMMARY | 2025-01-15 07:11 | XMS_ITS | Patient Health Record ---
Author Organization [facility] in [place] Address [address] [place] [address] Care Team Providers Care Form Coverer Name Role Phone Julisa Alfaro Primary Care Provider [phone] Allergies Allergen (clinical drug ingredient) Drug/Non Drug Allergy documented on EMR Reaction Allergy Type Onset Date Status sulfamethoxazole / trimethoprim Bactrim nausea and vomiting Drug Allergy Active codeine Codeine Unknown Drug Allergy Active Results Component Value Reference Range Notes CT lung screening low-dose Reviewed date:02/03/2024 02:01:48 PM Interpretation: Performing Lab: Notes/Report: Source Facility: [place] [address] CT Scan Report Signed Patient: HILDA MATOS MR#: [id number] : 1950 Acct:[id number] Age/Sex: 73 / F ADM Date: 02/03/24 Loc: CT Attending Dr: JULISA ALFARO Ordering Physician: JULISA ALFARO Date of Service: 02/03/24 Procedure(s): CT lung screening low-dose Accession Number(s): [id number] cc: JULISA ALFARO [place] [address] Patient Name: HILDA MATOS MRN: [id number] date: 1950 Sex: F Assigned Patient Location: CT Current Patient Location: CT Accession/Order Number: [id number] Exam Date: 02/03/2024 08:05 Report Date: 02/03/2024 10:04 At the request of: JULISA ALFARO Procedure: CT lung screening low-dose EXAMINATION: CT lung screening low-dose HISTORY: former smoker Z87.891 COMPARISON: 01/24/2023 TECHNIQUE: Axial, Coronal, and Sagittal images were created without the administration of IV contrast material. Dose reduction techniques were achieved by using automated exposure control and/or adjustment of mA and/or kV according to patient size and/or use of iterative reconstruction technique. FINDINGS: LUNGS: Scattered linear opacities, atelectasis or scar is favored. No new significant pulmonary nodule or mass. Scattered punctate pulmonary nodules are observed PLEURA: No mass, effusion, or pneumothorax. VASCULATURE: No abnormality. MOLLY: No mass or pathologic adenopathy. MEDIASTINUM: No mass or pathologic adenopathy. CARDIAC: No enlargement or pericardial effusion CORONARY ARTERIES: Coronary calcifications are mild. AORTA: No aortic aneurysm. Calcific atherosclerosis CHEST WALL: No mass or axillary adenopathy BONES: No bone lesion or fracture. LIMITED ABDOMEN: No suspicious findings. Limited images of the upper abdomen. OTHER: Negative. CT/CT lung screening low-dose IMPRESSION: LUNG SCREENING: Lung-RADS Category 2- Benign Appearance or Behavior. Nodules with a very low likelihood of becoming a clinically active cancer due to size or lack of growth. 2. Continue annual screening with LDCT in 12 months. Electronically authenticated by: JANNETTE PACHECO Date: 02/03/2024 10:04 Dictated By: Jannette Pacheco M.D. Signed By: 02/03/24 1007 DD/ 1004 TD/TT: Secondary Spanish Teacher: [place] [address] CT Scan Report Signed Patient: LILIAN MATOS RET MR#: [id number] : 1950 Acct:[id number] Age/Sex: 73 / F ADM Date: 02/03/24 Loc: CT Attending Dr: JULISA ALFARO Ordering Physician: JULISA ALFARO Date of Service: 02/03/24 Procedure(s): CT steffi g screening low-dose Accession Number(s): [id number] cc: JULISA ALFARO [place] [address] Patient Name: HILDA MATOS MRN: [id number] date: 1950 Sex: F Assigned Patient Location: CT Current Patient Location: CT Accession/Order Numb er: [id number] Exam Date: 02/03/2024 08:05 Report Date: 02/03/2024 10:04 At the request of: JULISA ALFARO Procedure: CT lung s creening low-dose EXAMINATION: CT lung screening low-dose HISTORY: former smoker Z87.891 COMPARISON: 01/24/2023 TECHNIQUE: Axial, Co andrea, and Sagittal images were created without the administration of IV contrast material. Dose reduction techniques were achieved by using automated e xposure control and/or adjustment of mA and/or kV according to patient size and/ or use of iterative reconstruction technique. FINDINGS: LUNGS: Scattered ear opacities, atelectasis or scar is favored. No new significant pulmonar y nodule or mass. Scattered punctate pulmonary nodules are observed PLEURA: No mass, eff usion, or pneumothorax. VASCULATURE: No abnormality. MOLLY: No mass or pat hologic adenopathy. MEDIASTINUM: No mass or pathologic adenopathy. CARDIAC: No enlargem ent or pericardial effusion CORONARY ARTERIES: C oronary calcifications are mild. AORTA: No aortic ane urysm. Calcific atherosclerosis CHEST WALL: No mass or axillary adenopathy BONES: No bone lesio n or fracture. LIMITED ABDOMEN: No suspicious findings. Limited images of the upper abdomen. OTHER: Negative. C T/CT lung screening low-dose IMPRESSION: LUNG SCREENING: Lung -RADS Category 2- Benign Appearance or Behavior. Nodules with a very low like lihood of becoming a clinically active cancer due to size or lack of growth. 2 . Continue annual screening with LDCT in 12 months. Electronically authe nticated by: JANNETTE PACHECO Date: 02/03/2024 10:04 Dictated By: Jannette Pacheco M.D. Signed By: 02/03/24 1007 DD/ 1004 TD/TT: Secondary Spanish Teacher: JOSY guadarrama Reviewed date:04/23/2024 01:28:26 PM Interpretation: Performing Lab: Notes/Report: [place] [address] CT Scan Report Signed Patient: HILDA MATOS MR#: [id number] : 1950 Acct:[id number] Age/Sex: 74 / F ADM Date: 04/19/24 Loc: CT Attending Dr: JULISA ALFARO Ordering Physician: JULISA ALFARO Date of Service: 04/19/24 Procedure(s): CT shoulder LT wo con Accession Number(s): [id number] cc: JULISA ALFARO [place] [address] Patient Name: HILDA MATOS MRN: [id number] date: 1950 Sex: F Assigned Patient Location: CT Current Patient Location: Accession/Order Number: [id number] Exam Date: 04/19/2024 10:05 Report Date: 04/22/2024 07:10 At the request of: JULISA ALFARO Procedure: CT shoulder LT wo con CT shoulder LT wo con: 04/19/2024 10:05 AM EST HISTORY: Chronic left shoulder pain. The patient reportedly cannot have an MRI due to a loop recorder. COMPARISON: Radiographs left shoulder 04/05/2024. TECHNIQUE: Multiple contiguous axial CT images of the left shoulder were obtained without contrast. Sagittal and coronal reformatted images were made. Dose reduction techniques were achieved by using automated exposure control and/or adjustment of mA and/or kV according to patient size and/or use of iterative reconstruction technique. FINDINGS: No fracture or dislocation is seen. There are moderate degenerative changes of the acromioclavicular joint with subacromial fat effacement. There is a type II acromion causing mild narrowing of the supraspinatus outlet. There are small marginal osteophytes of the glenoid. There is no atrophy of the rotator cuff muscles. CT/CT shoulder LT wo con IMPRESSION: 1. Moderate acromioclavicular joint osteoarthritis with subacromial fat effacement. 2. Mild osteoarthritis of the glenohumeral joint. 3. No fracture or dislocation. Electronically authenticated by: CATHERINE DE LA O Date: 04/22/2024 07:10 Dictated By: Catherine De La O M.D. Signed By: 04/22/24711 DD/ 9 TD/TT: Secondary Spanish Teacher: [place] [address] CT Scan Report Signed Patient: LILIAN MATOS RET MR#: [id number] : 1950 Acct:[id number] Age/Sex: 74 / F ADM Date: 04/19/24 Loc: CT Attending Dr: JULISA ALFARO Ordering Physician: JULISA ALFARO Date of Service: 04/19/24 Procedure(s): CT logan ulder LT wo con Accession Number(s): [id number] cc: JULISA ALFARO [place] [address] Patient Name: HILDA MATOS MRN: [id number] date: 1950 Sex: F Assigned Patient Location: CT Current Patient Location: Accession/Order Numb er: [id number] Exam Date: 10:05 Report Date: 04/22/2024 07:10 At the request of: JULISA ALFARO Procedure: CT should er LT wo con CT shoulder LT wo co n: 04/19/2024 10:05 AM EST HISTORY: Chronic lef t shoulder pain. The patient reportedly cannot have an MRI due to a loop recorder. COMPARISON: Radiogra [facility] left shoulder 04/05/2024. TECHNIQUE: Multiple contiguous axial CT images of the left shoulder were obtained without con trast. Sagittal and coronal reformatted images were made. Dose reduction techn iques were achieved by using automated exposure control and/or adjustment of mA and/or kV according to patient size and/or use of iterative reconstruc tion technique. FINDINGS: No fracture or dislo cation is seen. There are moderate degenerative changes of the acromioclavicula r joint with subacromial fat effacement. There is a type II acromion causing mil d narrowing of the supraspinatus outlet. There are small marginal osteophytes of the glenoid. There is no atrophy of the rotator cuff muscles. C T/CT shoulder LT wo con IMPRESSION: 1. Moderate acromioc lavicular joint osteoarthritis with subacromial fat effacement. 2. Mild osteoarthrit is of the glenohumeral joint. 3. No fracture or dislocation. Electronically authe nticated by: CATHERINE DE LA O Date: 04/22/2024 07:10 Dictated By: Catherine De La O M.D. Signed By: 04/22/24711 DD/ 9 TD/TT: Secondary Spanish Teacher: XR shoulder LT min 2V Reviewed date:04/09/2024 08:59:40 AM Interpretation: Performing Lab: Notes/Report: Source Facility: [place] [address] XRay Report Signed Patient: HILDA MATOS MR#: [id number] : 1950 Acct:[id number] Age/Sex: 73 / F ADM Date: 04/05/24 Loc: RAD Attending Dr: JULISA ALFARO Ordering Physician: JULISA ALFARO Date of Service: 04/05/24 Procedure(s): XR shoulder LT min 2V Accession Number(s): [id number] cc: JULISA ALFARO [place] [address] Patient Name: HILDA MATOS MRN: [id number] date: 1950 Sex: F Assigned Patient Location: [facility] Current Patient Location: Accession/Order Number: [id number] Exam Date: 04/05/2024 10:44 Report Date: 2024 08:39 At the request of: JULISA ALFARO Procedure: XR shoulder LT min 2V PROCEDURE: XR shoulder LT min 2V HISTORY: Left Shoulder Pain M25.512 ; chronic intermittent left shoulder pain COMPARISON: None. FINDINGS: BONES:Narrowing of the acromioclavicular joint with moderate size degenerative osteophytes projecting inferiorly from the joint margins. Unremarkable humeral head and glenohumeral joint. SOFT TISSUES:No visible soft tissue swelling. EFFUSION:None visible. OTHER: Negative. XR/XR shoulder LT min 2V IMPRESSION: 1. Moderate degenerative changes of the acromioclavicular joint which would predispose to rotator cuff injury. 2. No acute abnormality. Electronically authenticated by: PRESLEY SPAULDING Date: 2024 08:39 Dictated By: Presley Spaulding M.D. Signed By: 04/08/24841 DD/ 8 TD/TT: Secondary Spanish Teacher: [place] [address] XRay Report Signed Patient: LILIAN MATOS RET MR#: [id number] : 1950 Acct:[id number] Age/Sex: 73 / F ADM Date: 04/05/24 Loc: RAD Attending Dr: JULISA ALFARO Ordering Physician: JULISA ALFARO Date of Service: 04/05/24 Procedure(s): XR logan ulder LT min 2V Accession Number(s): [id number] cc: JULISA ALFARO [place] [address] Patient Name: HILDA MATOS MRN: [id number] date: 1950 Sex: F Assigned Patient Location: [facility] Current Patient Location: Accession/Order Numb er: [id number] Exam Date: 10:44 Report Date: 2024 08:39 At the request of: JULISA ALFARO Procedure: XR should er LT min 2V PROCEDURE: XR should er LT min 2V HISTORY: Left Should er Pain M25.512 ; chronic intermittent left shoulder pain COMPARISON: None. FINDINGS: BONES:Narrowing of t he acromioclavicular joint with moderate size degenerative osteophytes projecti ng inferiorly from the joint margins. Unremarkable humeral head and glenohumeral joint. SOFT TISSUES:No visi ble soft tissue swelling. EFFUSION:None visible. OTHER: Negative. X R/XR shoulder LT min 2V IMPRESSION: 1. Moderate degenera tive changes of the acromioclavicular joint which would predispose to rotato r cuff injury. 2. No acute abnormality. Electronically authe nticated by: PRESLEY SPAULDING Date: 2024 08:39 Dictated By: Presley Spaulding M.D. Signed By: 04/08/24841 DD/ 8 TD/TT: Secondary Spanish Teacher: Reason For Referral Diagnosis 1 Osteoarthritis of ac romioclavicular joint (M19.019) Referral Organization [facility] Referring Provider First Name Julisa Referring Provider Last Name Angelina Referring Provider Speciality Family [facility] icine Referred Provider Tavo Malhotra Referred Provider Specialty Orthopedic S urgery Referral Priority Routine Medications Medication SIG (Take, Route, Frequency, Duration) Notes Start Date End Date Status Synthroid 137 MCG TAKE 1 TABLET EVERY MORNING for 90 days Active Albuterol Sulfate HFA 108 (90 Base) MCG/ACT 1 puff as needed Inhalation every 4 hrs for 30 days 01/18/2023 Active Pantoprazole Sodium 40 MG 1 tablet Orall y Once a day Active Dorzolamide HCl-Timolol Mal PF 22.3-6.8 MG/ML 1 drop into affected eye Ophthalmic Twice a day Active Apixaban 5 MG 1 tablet Orally Twic e a day for 30 day(s) 12/06/2023 Active ALPRAZolam 0.25 MG 1 tablet Orally Twic e a day prn for 30 days 04/05/2024 Active Social History Tobacco Use: Social History Observation Description Date Details (start date - stop date) Former Smoker 06/13/1964 - 06/13/1997 Tobacco Use/Smoking Question Answer Notes Patient is a former smoker When did you start smoking? 06/13/1964 When did you stop smoking? 06/13/1997 How long has it been since you last smoked? > 10 years Alcohol Screen (Audit-C) Question Answer Notes Did you have a drink contain ing alcohol in the past year? Yes How often did you have 6 or more drinks on one occasion in the past year? Never (0 point) How many drinks did you have on a typical day when you were drinking in the past year? 1 or 2 drinks (0 point) How often did you have a dri nk containing alcohol in the past year? Daily or almost daily (4 points) Points 4 Interpretation Positive AUDIT-C (Standard) Question Answer Notes Did you have a drink contain ing alcohol in the past year? Yes How often did you have six o r more drinks on one occasion in the past year? Never (0 point) How many drinks did you have on a typical day when you were drinking in the past year? 1 or 2 drinks (0 point) How often did you have a dri nk containing alcohol in the past year? 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 Problem 36670845 Anxiety disorder , unspecified (F41.9) Active confirmed Problem Paroxysmal atrial fibrillation (631025669) Paroxysmal atrial fibrillation (I48.0) Active confirmed Problem Gastroesophageal reflux disease (851552188) GERD (gastroesophageal reflux disease) (K21.9) Active confirmed Problem Sinusitis (64477724) Sinusitis (J32.9) Active confirmed Problem Osteoarthritis of acromioclavicular joint (568886387) 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) Active confirmed Vital Signs Blood pressure diastolic 82 mm Hg 04/05/2024 Height 65 in 04/05/2024 Blood pressure systolic 140 mm Hg 04/05/2024 Weight 192.4 lbs 04/05/2024 BMI 32.01 kg/m2 04/05/2024 Encounters Encounter Location Date Provider Diagnosis [facility] [address] [place] [address] 04/05/2024 Julisa Alfaro Left shoulder pain M25.512 and Anxiety disorder, unspecified F41.9 [facility] [address] [place] [address] 09/03/[address] [facility] [address] [place] [address] 02/03/[address] [facility] [address] [place] [address] 04/09/2024 Julisa Alfaro Left shoulder pain M25.512 [facility] [address] [facility] [place] [place] [address] 04/13/2024 Julisa Alfaro Left shoulder pain M25.512 [facility] [address] [place] [address] 04/23/2024 Julisa Alfaro Osteoarthritis of acromioclavicular joint M19.019 [facility] [address] [place] [address] 08/03/2024 Julisa Alfaro Screening for breast cancer Z12.39 [facility] [address] [place] [address] 08/21/[address] [facility] [address] [place] [address] 01/27/2024 Julisa Alfaro Former smoker Z87.89 1 Assessments Encounter Date Diagnosis (ICD Code) Assessment Notes Treatment Notes Treatment Clinical Notes Section Notes 04/05/2024 Left shoulder pain (ICD-10 - M25.512) 01/27/2024 Former smoker (ICD-1 0 - Z87.891) 04/09/2024 Left shoulder pain (ICD-10 - M25.512) 04/13/2024 Left shoulder pain (ICD-10 - M25.512) 04/23/2024 Osteoarthritis of acromioclavicular joint (ICD-10 - M19.019) 08/03/2024 Screening for breast cancer (ICD-10 - Z12.39) 04/05/2024 Anxiety disorder, unspecified (ICD-10 - F41.9) CSA signed, OARRS reviewed use sparingly Plan Of Treatment Pending Test Test Name Order Date CMP (COMPLETE METABOLIC PANEL) 3 HEMOGLOBIN A1C (GLYCO) 01/06/2023 IRON, TOTAL 01/06/2023 LIPID PANEL (CHOL/TRIG/HDL/LDL) 01/07/20 23 CBC WITH DIFF 01/06/2023 VITAMIN D, 25 LEVEL (TOTAL) 01/06/2023 Insulin Level 01/06/2023 CT Chest Low Dose for Screening* 024 MAMM SCREEN BILAT SUNDEEP 3D GLOBAL* 2024 STOOL OCCULT BLOOD 01/06/2023 CBC AUTO DIFF 01/21/2023 CT LUNG CANCER SCREENING 01/06/2023 CT SHOULDER LT WO CON 04/13/2024 MRI SHOULDER LT WO CON 04/09/2024 XR SHOULDER LT 2V or > 04/05/2024 THYROID PANEL (T4/TSH/FREE T3) 3 Holter Monitor - 3 days up to 14 days Insurance Providers Payer Name Payer Address Payer Phone Subscriber Number Group Number Insured Name Patient Relationship to Insured Coverage Start Date Coverage End Date [employer] [address] [place] [address] [phone] [id number] Hilda Matos Self - patient is the insured 3 Medical (General) History Medical History History ICD Code Dysphagia R13.10 Diverticular disease K57.90 COPD (chronic obstructive pulmonary dise ase) J44.9 Arthritis M19.90 Acid reflux K21.9 Hypothyroidism E03.9 Glaucoma H40.9 Surgical History Surgery Date(Month/Year) cholecystectomy tonsillectomy Left elbow bone spur removal cataract extraction bilateral EGD 01/2022 colonoscopy 01/2020
== END 2025-01-15 07:10 | disposition home or self-care (01) ==
LOC: CARD 07:09
PROVIDERS: PCP Nurse Practitioner Family; Visit Provider Internal Medicine Cardiovascular Disease
DX: I49.3 Ventricular premature depolarization (principal)
CPT/HCPCS: 93306

== ENCOUNTER 2025-02-08 08:03 | Outpatient (OUT) | payer MEDICARE, SELFPAY ==
--- OUTSIDE RECORDS SUMMARY | 2012-03-22 20:00 | XMS_ITS | Continuity of Care Document ---
Author Organization [facility] Address [address] [place] [address] Phone Care Team Providers Care Software Reliability Engineer Name Role Phone Enedina JACOBSON Yan JACOBSON Unavailable Unavailable Procedures Procedure Date FLU VACCINE, 3 YRS & >, IM Advance Directives Directive Yes / No Effective Date File Name Resuscitation Not Answered N/A N/A Life Support Not Answered N/A N/A Intubation Not Answered N/A N/A Antibiotics Not Answered N/A N/A IV Fluid Support Not Answered N/A N/A Tube Feed Not Answered N/A N/A Other Directive N/A N/A WARNING:The information contained in this section is historical and is provided for information only and does not constitute a legal document or any assurance that the information is still accurate. Please verify the information with the johnston of the legal document before using it for clinical purposes. Encounters Encounter Description Practice Location Reason(s) For Visit Diagnoses Date Provider Providers Copied on Encounter [facility], [address] [place] [address], [id number], tel:[phone] Renee No Information Enedina JACOBSON Yan. [address] [place] [address], [id number], [place]. tel:[phone] Family History Family Member Type Diagnosis Age At Onset No Information Immunizations Vaccine Date Status Comments Flu (split) (3 yrs or older) administered Source: New Immunization Record Payers Payer name Insurance type Covered alliance party ID Authoriza tion(s) [facility] CI [id number] Social History Type Description Quantity Date Captured Comments Alcohol Use Details Unknown Caffeine Use Details Unknown Tobacco Use Status No Information Smoking Status No Information Sex Female Chief Complaint And Reason For Visit No Information Reason For Referral Reason For Referral No Information History Of Present Illness Encounter Date Complaint History Of Prese nt Illness No Information Functional Status Date Functional Assessmen t No Information Instructions Date Instruction Additional Infor mation No Information Assessments Type Assessment Date No Information Patient Care Teams Name Effective Dates (start - stop) Status Members No Information
--- OUTSIDE RECORDS SUMMARY | 2024-08-21 06:58 | XMS_ITS ---
Author Organization The [facility] in [place] Address [address] [place] [address] Care Team Providers Care Registered Nurse Cardiac Telemetry Name Role Phone Julisa Alfaro Primary Care Provider [phone] REASON FOR VISIT refill Medications Medication SIG (Take, Route, Fr equency, Duration) Notes Start Date End Date Status Synthroid 137 MCG TAKE 1 TABLET EVERY MORNING for 90 days Active Encounters Encounter Location Date Provider Diagnosis [facility] [address] [place] [address] 08/21/2024 Julisa Alfaro Plan Of Treatment Medication Medication Name Sig Start Date Stop Date Notes Synthroid 137 MCG TAKE 1 TABLET EVERY MORNING for 90 days Progress Notes * Melissa MATOSDOB: 8 (74 yo F)Acc No.[id number]:08/21/2024 Patient: Melissa NICHOLS :1950 A ge:74 Y S ex:Female Address:[address] [place] [address] * Refills Refill Synthroid Tablet, 137 MCG, 90 Tablet, TAKE 1 TABLET EVERY MORNING, 90 days, Refills=2 * true * Date: Generated for Borisi ng/Fagiselg/eTransmitting on: 0 02/08/2025 08:09 AM EDT
--- OUTSIDE RECORDS SUMMARY | 2024-09-03 05:59 | XMS_ITS ---
Author Organization The [facility] in [place] Address [address] [place] [address] Care Team Providers Care Haul Driver Name Role Phone Julisa Alfaro Primary Care Provider REASON FOR VISIT Mammogram Encounters Encounter Location Date Provider Diagnosis [facility] [address] [place] [address] 09/03/2024 Julisa Alfaro Plan Of Treatment No Information Progress Notes * Melissa MATOSDOB: (74 yo F)Acc No.[id number]:09/03/2024 Patient: Melissa NICHOLS :1950 A ge:74 Y S ex:Female Address[address] [place] [address] * true * Date: Generated for Printi ng/Fagiselg/eTransmitting on: 0 02/08/2025 08:06 AM EDT
--- OUTSIDE RECORDS SUMMARY | 2025-01-30 03:59 | XMS_ITS ---
Author Organization [facility] in [place] Address [address] [place] [address] Care Team Providers Care Administrative Support Clerk Name Role Phone Julisa Alfaro Primary Care Provider REASON FOR VISIT CT Lung Screening Encounters Encounter Location Date Provider Diagnosis [address] [address] 01/30/2025 Julisa Alfaro Chronic obstructive pulmonary disease, unspecified J44.9 Assessments Encounter Date Diagnosis (ICD Code) Assessment Notes Treatment Notes Treatment Clinical Notes Section Notes 01/30/2025 Chronic obstructive pulmonary disease, unspecified (ICD-10 - J44.9) Plan Of Treatment Pending Test Test Name Order Date CT LUNG CANCER SCREENING 01/30/2025 Progress Notes * Melissa AMTOSDOB: 8 (74 yo F)Acc No.[id number]:01/30/2025 Patient: Melissa NICHOLS :1950 A ge:74 Y S ex:Female [address] [facility] [place] [address] Subjective: * Chief Complaints: * C T Lung Screening * Medical History: * Surgical History: * Hospitalization/Major Diagno stic Procedure: * Medications: Objective: * Vitals: * Physical Examination: Assessment: * Assessment: 1. C hronic obstructive pulmonary disease, unspecified - J44.9 (Primary) Plan: * Treatment: * Procedure Codes: * true * Date: Generated for Clifton royal/Arun/Mary on: 0 02/08/2025 08:10 AM EDT
--- OUTSIDE RECORDS SUMMARY | 2025-02-07 06:30 | XMS_ITS ---
Author Organization [facility] in [place] Address [address] [place] [address] Care Team Providers Care Carbon Paper Coating Supervisor Name Role Phone Julisa Alfaro Primary Care Provider Allergies Allergen (clinical drug ingredient) Drug/Non Drug Allergy documented on EMR Reaction Allergy Type Onset Date Status sulfamethoxazole / trimethoprim Bactrim nausea and vomiting Drug Allergy Active codeine Codeine Unknown Drug Allergy Active REASON FOR VISIT yearly wellness appointment Medications Medication SIG (Take, Route, Frequency, Duration) Notes Start Date End Date Status Synthroid 137 MCG TAKE 1 TABLET EVERY MORNING for 90 days Active Pantoprazole Sodium 40 MG 1 tablet Orall y Once a day Active ALPRAZolam 0.25 MG 1 tablet Orally Twic e a day prn for 30 days 02/07/2025 Active Albuterol Sulfate HFA 108 (90 Base) MCG/ACT 1 puff as needed Inhalation every 4 hrs for 30 days 01/18/2023 Active Dorzolamide HCl-Timolol Mal PF 22.3-6.8 MG/ML 1 drop into affected eye Ophthalmic Twice a day Active Social History Tobacco Use: Social History Observation Description Date Details (start date - stop date) Former Smoker 06/13/1964 - 06/13/1997 Tobacco Use/Smoking Question Answer Notes Patient is a former smoker When did you start smoking? 06/13/1964 When did you stop smoking? 06/13/1997 How long has it been since you last smoked? > 10 years AUDIT-C (Standard) Question Answer Notes Did you [...] daily (4 points) Points 4 Interpretation Positive Vital Signs Weight 189.2 lbs 02/07/2025 Height 65 in 02/07/2025 Blood pressure systolic 110 mm Hg 02/08/20 25 Blood pressure diastolic 68 mm Hg 025 BMI 31.48 kg/m2 02/07/2025 Encounters Encounter Location Date Provider Diagnosis [facility] [address] [place] [address] 02/07/2025 Julisa Alfaro Hypothyroidism, unspecified E03.9 and Anxiety disorder, unspecified F41.9 Assessments Encounter Date Diagnosis (ICD Code) Assessment Notes Treatment Notes Treatment Clinical Notes Section Notes 02/07/2025 Hypothyroidism, unspecified (ICD-10 - E03.9) 02/07/2025 Anxiety disorder, unspecified (ICD-10 - F41.9) CSA signed, OARRS reviewed uses sparingly Plan Of Treatment Medication Medication Name Sig Start Date Stop Date Notes ALPRAZolam 0.25 MG 1 tablet Orally Twic e a day prn for 30 days 02/07/2025 Treatment Notes Assessment Notes Anxiety disorder, unspecified CSA signed, OARRS reviewed uses sparingly Pending Test Test Name Order Date HEMOGLOBIN A1C (GLYCO) 02/07/2025 IRON, TOTAL 02/07/2025 LIPID PANEL (CHOL/TRIG/HDL/LDL) 02/08/20 25 VITAMIN D, 25 LEVEL (TOTAL) 02/07/2025 Insulin Level 02/07/2025 THYROID PANEL (T4/TSH/FREE T3) 5 CMP (COMP MET WHEELER) w/eGFR CKD-EPI 2024 CBC WITH DIFF 02/07/2025 Next Appt Details Follow Up: 1 Year,prn, Reaso n: Progress Notes * Cecily MATOS: 8 (74 yo F)Acc No.[id number]:02/07/2025 UNLOCKED PROGRESS NOTE Progress Note Patient: Melissa NICHOLS Provider: Annabelle Alfaro ([facility]), TRAINING SYSTEMS OFFICER :1950 A ge:74 Y S ex:Female Date:02/07/2025 Address:[address], [id number] Check In:10:21 AM ESTCheck O ut:10:41 AM EST Subjective: * Chief Complaints: * 1 . Yearly wellness appointment. 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 * ROS: G eneral/Constitutional: Fever d enies. H eadache d enies. W eight loss?denies. O phthalmologic: Discharge d enies. E ye Pain d enies. I tching and redness d enies. E NT: Nasal discharge d enies. N sudheer congestion d enies.?Sore throat d enies. C ardiovascular: Chest tightness/ heavy pressure d enies. R apid heart rate d enies. S welling of extremities L E at times. C hest pain d enies. ? R espiratory: Productive cough d enies. C hest pain d enies. C ough d enies. S hortness of breath d enies. W heezing d enies. ? G astrointestinal: Abdominal pain d enies. C onstipation d enies. D ecreased appetite d enies. D iarrhea d enies. N ausea d enies. V omiting?denies. G enitourinary: Urinary incontinence d enies. P ainful urination d enies. M usculoskeletal: Patient complaining of a rthritic pain . B ack pain d enies. N abel pain d enies. M uscle aches d enies. S kin: Rash d enies. S kin lesion(s) d enies. ? * Medical History: D ysphagia, Diverticular disease, COPD (chronic obstructive pulmonary disease), Arthritis, Acid reflux, Hypothyroidism, Glaucoma. * Surgical History: c holecystectomy , tonsillectomy , Left elbow bone spur removal , cataract extraction bilateral , EGD 01/2022, colonoscopy 01/2020, loop monitor recorder 04/09/2024. * Family History: F ather: 50 yrs, aneurysm brain. M other: 77 yrs, cancer GB. B rother(s): alive. S ister(s): alive. S on(s): alive. 1 brother(s) , 1 sister(s) - healthy. 1 son(s) , 1 daughter(s) - healthy. . * Social History: T obacco Use: T obacco Use/Smoking P atient is a f ormer smoker W hen did you start smoking? 0 06/13/1964 W hen did you stop smoking? 0 06/13/1997 H ow long has it been since you last smoked??> 10 years D rug/Alcohol: A TAJ-C (Standard) D id you have a drink containing alcohol in the past year? Y es H ow often did you have six or more drinks on one occasion in the past year? N ever (0 point) H ow many drinks did you have on a typical day when you were drinking in the past year? 1 or 2 drinks (0 point) H ow often did you have a drink containing alcohol in the past year? D aily or almost daily (4 points) P oints 4 I nterpretation P ositive * Medications: T aking Albuterol Sulfate HFA 108 (90 Base) MCG/ACT Aerosol Solution 1 puff as needed Inhalation every 4 hrs , Taking ALPRAZolam 0.25 MG Tablet 1 tablet Orally Twice a day prn , Taking Dorzolamide HCl-Timolol Mal PF 22.3-6.8 MG/ML Solution 1 drop into affected eye Ophthalmic Twice a day , Taking Pantoprazole Sodium 40 MG Tablet Delayed Release 1 tablet Orally Once a day , Taking Synthroid(Levothyroxine Sodium) 137 MCG Tablet TAKE 1 TABLET EVERY MORNING , Medication List reviewed and reconciled with the patient * Allergies: B actrim: nausea and vomiting - Side Effects - Criticality Low, Codeine. Objective: * Vitals: W t:189.2lbs, Ht: 65 in, BP:110/68mm Hg, BMI:31.48Index, Ht-cm: 165.1 cm, Wt-k.82 kg. * Examination: G eneral Examinations: GENERAL APPEARANCE: a lert and oriented, i n no acute distress. EYES: c onjunctiva normal, sclera non-icteric. NOSE: n ormal external appearance. LUNGS: c lear to auscultation bilaterally. CARDIO: r egular rate and rhythm, S1, S2 normal. ABDOMEN: s oft, nontender. MUSCULOSKELETAL: G ait and station normal. SKIN: w arm and dry. Assessment: * Assessment: 1. H ypothyroidism, unspecified - E03.9 (Primary) 2 . A nxiety disorder, unspecified - F41.9 Plan: * Treatment: 2. A nxiety disorder, unspecified Refill ALPRAZolam Tablet, 0.25 MG, 1 tablet, Orally, Twice a day prn, 30 days, 60, Refills 0. ? Notes: CSA signed, OARRS reviewed uses sparingly * Preventive Medicine: Screenings/Counseling: B AR ACTION PLAN Above Normal BMI Follow-up D ietary management education, guidance, and counseling F ALL RISK SCREENING Fall Risk Assessment: N o falls in the past year * Follow Up: 1 Year,prn * * Electronic signature of Jocelyne Davidson , JUSTINE, BASE [email or web address].TRAINING SYSTEMS [id number] on 02/08/2025 at 08:06 AM EDT Sign off status: Pending Visit Status: Luca MARTIN (Check Out) * Provider: Annabelle Alfaro ([facility]), TRAINING SYSTEMS OFFICER Date: 0 02/07/2025 Generated for Clifton royal/Arun/eTransmitting on: 0 02/08/2025 08:06 AM EDT History and Physical Notes * HPI (History of Present Illness) Category Sub-Category Detail Notes Category Not es General tyenol helps, takes for arthritis walks 2 miles a day, in mornings 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
--- OUTSIDE RECORDS SUMMARY | 2025-02-07 08:53 | XMS_ITS ---
Author Organization [facility] in [place] Address [address] [place] [address] Care Team Providers Care Ice Cream Scooper Name Role Phone Julisa Alfaro Primary Care Provider [phone] Encounters Encounter Location Date Provider Diagnosis [facility] [address] [place] [address] 02/07/2025 Julisa Alfaro Plan Of Treatment No Information Progress Notes * Melissa MATOSDOB: (74 yo F)Acc No.[id number]:02/07/2025 Patient: Melissa NICHOLS :1950 A ge:74 Y S ex:Female [address] [facility] [place] [address] * true * Date: Generated for Printi ng/Faxing/eTransmitting on: 0 02/08/2025 08:07 AM EDT
--- OUTSIDE RECORDS SUMMARY | 2025-02-08 08:06 | XMS_ITS | Patient Health Record ---
Author Organization [facility] [place] Address [address] [place] [address] Care Team Providers Care Instant Powder Supervisor Name Role Phone Julisa Alfaro Primary Care Provider [phone] Allergies Allergen (clinical drug ingredient) Drug/Non Drug Allergy documented on EMR Reaction Allergy Type Onset Date Status sulfamethoxazole / trimethoprim Bactrim nausea and vomiting Drug Allergy Active codeine Codeine Unknown Drug Allergy Active Results Component Value Reference Range Notes CT shoulder LT wo con Reviewed date:04/23/2024 01:28:26 PM Interpretation: Performing Lab: Notes/Report: Source Facility: [place] [address] CT Scan Report Signed Patient: HILDA PARMAR MR#: [id number] : 1950 Acct:[id number] Age/Sex: 74 / F ADM Date: 04/19/24 Loc: CT Attending Dr: JULISA ALFARO Ordering Physician: JULISA ALFARO Date of Service: 04/19/24 Procedure(s): CT shoulder LT wo con Accession Number(s): [id number] cc: JULISA ALFARO [place] [address] Patient Name: HILDA PARMAR MRN: [id number] date: 1950 Sex: F Assigned Patient Location: CT Current Patient Location: Accession/Order Number: [id number] Exam Date: 04/19/2024 10:05 Report Date: 04/22/2024 [...] M.D. Signed By: 04/22/24711 DD/ 9 TD/TT: Griddle Attendant: [place] [address] CT Scan Report Signed Patient: LILIAN PARMAR RET MR#: [id number] : 1950 Acct:[id number] Age/Sex: 74 / F ADM Date: 04/19/24 Loc: CT Attending Dr: JULISA ALFARO Ordering Physician: JULISA ALFARO Date of Service: 04/19/24 Procedure(s): CT logan ulder LT wo con Accession Number(s): [id number] cc: JULISA ALFARO [place] [address] Patient Name: HILDA PARMAR MRN: [facility]:[id number] date: 1950 Sex: F Assigned Patient Location: CT Current Patient Location: Accession/Order Numb er: [id number] Exam Date: 10:05 Report Date: 04/22/2024 07:10 At the request of: JULISA ALFARO Procedure: CT should er LT wo con CT shoulder LT wo co n: 04/19/2024 10:05 AM EST HISTORY: Chronic lef t shoulder pain. The patient reportedly cannot have an MRI due to a loop recorder. COMPARISON: Radiogra [facility] left shoulder 04/05/2024. TECHNIQUE: Multiple contiguous axial [...] M.D. Signed By: 04/22/24711 DD/ 9 TD/TT: Griddle Attendant: TARI echo doppler complete Reviewed date:01/17/2025 01:21:17 PM Interpretation: Performing Lab: Notes/Report: Source Facility: [facility] [place] [address] [place] [address] Cardiology Report Signed Patient: HILDA PARMAR MR#: [id number] : 1950 Acct:[id number] Age/Sex: 74 / F ADM Date: 01/15/25 Loc: CARD Attending Dr: Cedric Peter M.D. Ordering Physician: Cedric Peter M.D. Date of Service: 01/15/25 Procedure(s): CA echo doppler complete Accession Number(s): [id number] cc: JULISA ALFARO ; Cedric Peter M.D. Patient Name: HILDA PARMAR MR#: [id number] : 1950 Exam Date: 01/15/2025 Ordering Doctor: CEDRIC PETER ECHOCARDIOGRAM REPORT PROCEDURE: CA ECHO DOPPLER COMPLETE INDICATIONS: PVC COMPARISON: None. DESCRIPTION: COMPLETE ECHOCARDIOGRAM Real-time transthoracic echocardiography with 2D, M-mode, spectral and color flow Doppler performed. QUALITY: Technical quality was good. LEFT VENTRICLE: Normal chamber size. Borderline left ventricular hypertrophy. Global left ventricular systolic function is normal. LV EF: Estimated left ventricular ejection fraction is 55-60% DIASTOLIC: Normal diastolic function. ATRIAL SEPTUM: LEFT ATRIUM: Normal chamber size. RIGHT ATRIUM: Normal chamber size. RIGHT VENTRICLE: Normal chamber size. Normal right ventricular systolic function. TRICUSPID VALVE: Normal mobility and thickness. No stenosis with trivial regurgitation. No evidence of pulmonary hypertension. RVSP 33 mmHg. MITRAL VALVE: Mildly thickened with normal mobility. No evidence of mitral valve stenosis. Mild mitral annular calcification. Mild mitral regurgitation. AORTIC VALVE: Normal trileaflet appearance. Thickened aortic valve. Normal leaflet mobility. No evidence of aortic valve stenosis. Mild aortic regurgitation. AORTIC ROOT: Normal diameter and appearance, measuring 3.5 cm. The ascending aorta is normal in size, measuring 3.6 cm. PULMONIC VALVE: Normal thickness and mobility. No stenosis. No regurgitation. PERICARDIUM: Trivial pericardial effusion versus anterior fat pad. IVC: Collapses with inspiration. Normal size. PLEURA: CONCLUSION: 1. Borderline left ventricular hypertrophy with normal systolic function. Estimated LVEF is 55 to 60%. 2. Normal right ventricular size and systolic function. 3. Mild mitral and aortic regurgitation. 4. Normal diastolic function. 5. Normal right-sided pressures. Adult Echocardiography Procedure Report Left Ventricle LVEDD (3.7 - 5.6 cm): 4.15 cm LVESD (2.2 - 4.0 cm): 3.05 cm LVIVS thickness (0.6 - 1.2 cm): 1.17 cm LVPW thickness (0.5 - 1.0 cm): 0.96 cm e': 0.13 m/s E - e': 5.92 LVOT Max Gradient: 4.92 mm[Hg] LVOT Area (cm2): 1.11 m/s Peak Velocity (LVOT): 1.11 m/s Mean Velocity (LVOT): 0.69 m/s LVOT Diameter 2.03 cm Left Ventricular Ejection Fraction: 55-60 % Left Atrium LA Volume Index (2D A2C): 35.29 ml/m2 Left Atrium Systolic Dimension: 2.84 cm Mitral Valve MV E to A Ratio: 0.92 Mitral Valve A-Wave Peak Velocity: 0.81 m/s Mitral Valve E-Wave Peak Velocity: 0.74 m/s Right Ventricle RV Internal Diastolic Dimension: 3.72 cm Aorta AO Root Diam: 3.54 cm Ascending Ao Diam: 3.56 cm Aortic Valve AoV Area (Peak Anthony): 2.97 cm2, 2.97 cm2 AoV Area (VTI): 2.96 cm2, 2.96 cm2 Deceleration Garfield: 1.71 m/s2 Pressure Half-Time: 717.29 ms Peak Velocity(Antegrade Flow): 1.21 m/s Peak Gradient(Antegrade Flow): 5.86 mm[Hg] Mean Velocity(Antegrade Flow): 0.84 m/s Mean Gradient(Antegrade Flow): 3.11 mm[Hg] Velocity Time Integral: 26.53 cm Tricuspid Valve Peak Velocity (Regurgitant Flow): 2.72 m/s, 2.32 m/s, 2.43 m/s Pulmonic Valve Mean Gradient: 1.09 mm[Hg] Mean Velocity: 0.49 m/s Peak Velocity: 0.73 m/s Peak Gradient: 2.16 mm[Hg] Right Atrium Right Atrium Systolic Pressure: 62.88 ml, 62.88 ml Dictated by: Dez Kearney M.D. on 01/15/2025 at 18:07 Approved by: Dez Kearney M.D. on 01/15/2025 at 18:12 Dictated By: DEZ KEARNEY Signed By: 01/15/251812 DD/ 11 TD/TT: Griddle Attendant: [place] [address] Cardiology Report Signed Patient: LILIAN PARMAR RET MR#: [id number] : 1950 Acct:[id number] Age/Sex: 74 / F ADM Date: 01/15/25 Loc: CARD Attending Dr: Cedric Peter M.D. Ordering Physician: Cedric Peter M.D. Date of Service: 01/15/25 Procedure(s): CA ech o doppler complete Accession Number(s): [id number] cc: JULISA ALFARO ; Cedric Peter M.D. Patient Name: HILDA PARMAR MR#: [id number] : 1950 Exam Date: 01/15/2025 Ordering Doctor: CEDRIC PETER ECHOCARDIOGRAM REPORT PROCEDURE: CA ECHO D OPPLER COMPLETE INDICATIONS: PVC COMPARISON: None. DESCRIPTION: COMPLET E ECHOCARDIOGRAM Real-time transthoracic echocardiography wit h 2D, M-mode, spectral and color flow Doppler performed. QUALITY: Technical q uality was good. LEFT VENTRICLE: Norm al chamber size. Borderline left ventricular hypertrophy. Global left ventricular systolic function is normal. LV EF: Estimated lef t ventricular ejection fraction is 55-60% DIASTOLIC: Normal di astolic function. ATRIAL SEPTUM: LEFT ATRIUM: Normal chamber size. RIGHT ATRIUM: Normal chamber size. RIGHT VENTRICLE: Nor mal chamber size. Normal right ventricular systolic function. TRICUSPID VALVE: Nor mal mobility and thickness. No stenosis with trivial regurgitation. No ev idence of pulmonary hypertension. RVSP 33 mmHg. MITRAL VALVE: Mildly thickened with normal mobility. No evidence of mitral valve stenosi s. Mild mitral annular calcification. Mild mitral regurgitation. AORTIC VALVE: Normal trileaflet appearance. Thickened aortic valve. Normal leaflet mobil ity. No evidence of aortic valve stenosis. Mild aortic regurgitation. AORTIC ROOT: Normal diameter and appearance, measuring 3.5 cm. The ascending aorta is n ormal in size, measuring 3.6 cm. PULMONIC VALVE: Norm al thickness and mobility. No stenosis. No regurgitation. PERICARDIUM: Trivial pericardial effusion versus anterior fat pad. IVC: Collapses with inspiration. Normal size. PLEURA: CONCLUSION: 1. Borderline left v entricular hypertrophy with normal systolic function. Estimated LVEF is 55 to 60%. 2. Normal right vent ricular size and systolic function. 3. Mild mitral and a ortic regurgitation. 4. Normal diastolic function. 5. Normal right-side d pressures. Adult Echocardiograp hy Procedure Report Left Ventricle LVEDD (3.7 - 5.6 cm): 4.15 cm LVESD (2.2 - 4.0 cm): 3.05 cm LVIVS thickness (0.6 - 1.2 cm): 1.17 cm LVPW thickness (0.5 - 1.0 cm): 0.96 cm e': 0.13 m/s E - e': 5.92 LVOT Max Gradient: 4.92 mm[Hg] LVOT Area (cm2): 1.11 m/s Peak Velocity (LVOT): 1.11 m/s Mean Velocity (LVOT): 0.69 m/s LVOT Diameter 2.03 cm Left Ventricular Eje ction Fraction: 55-60 % Left Atrium LA Volume Index (2D A2C): 35.29 ml/m2 Left Atrium Systolic Dimension: 2.84 cm Mitral Valve MV E to A Ratio: 0.92 Mitral Valve A-Wave Peak Velocity: 0.81 m/s Mitral Valve E-Wave Peak Velocity: 0.74 m/s Right Ventricle RV Internal Diastoli c Dimension: 3.72 cm Aorta AO Root Diam: 3.54 cm Ascending Ao Diam: 3.56 cm Aortic Valve AoV Area (Peak Anthony): 2.97 cm2, 2.97 cm2 AoV Area (VTI): 2.96 cm2, 2.96 cm2 Deceleration Garfield: 1.71 m/s2 Pressure Half-Time: 717.29 ms Peak Velocity(Antegr juventino Flow): 1.21 m/s Peak Gradient(Antegr juventino Flow): 5.86 mm[Hg] Mean Velocity(Antegr juventino Flow): 0.84 m/s Mean Gradient(Antegr juventino Flow): 3.11 mm[Hg] Velocity Time Integr al: 26.53 cm Tricuspid Valve Peak Velocity (Regur gitant Flow): 2.72 m/s, 2.32 m/s, 2.43 m/s Pulmonic Valve Mean Gradient: 1.09 mm[Hg] Mean Velocity: 0.49 m/s Peak Velocity: 0.73 m/s Peak Gradient: 2.16 mm[Hg] Right Atrium Right Atrium Systoli c Pressure: 62.88 ml, 62.88 ml Dictated by: Dez Kearney M.D. on 01/15/2025 at 18:07 Approved by: Dez Kearney M.D. on 01/15/2025 at 18:12 Dictated By: DEZ KEARNEY Signed By: 01/15/251812 DD/ 11 TD/TT: Griddle Attendant: XR shoulder LT min 2V Reviewed date:04/09/2024 08:59:40 AM Interpretation: Performing Lab: Notes/Report: Source Facility: [place] [address] XRay Report Signed Patient: HILDA PARMAR MR#: [id number] : 1950 Acct:[id number] Age/Sex: 73 / F ADM Date: 04/05/24 Loc: [facility] Attending Dr: JULISA ALFARO Ordering Physician: JULISA ALFARO Date of Service: 04/05/24 Procedure(s): XR shoulder LT min 2V Accession Number(s): [id number] cc: JULISA ALFARO [place] [address] Patient Name: HILDA PARMAR MRN: [id number] date: 1950 Sex: F Assigned Patient Location: [facility] Current Patient Location: Accession/Order Number: [id number] Exam Date: 04/05/2024 10:44 Report Date: 2024 [...] M.D. Signed By: 04/08/24841 DD/ 8 TD/TT: Griddle Attendant: [place] [address] XRay Report Signed Patient: LILIAN PARMAR RET MR#: [id number] : 1950 Acct:[id number] Age/Sex: 73 / F ADM Date: 04/05/24 Loc: [facility] Attending Dr: JULISA ALFARO Ordering Physician: JULISA ALFARO Date of Service: 04/05/24 Procedure(s): XR logan ulder LT min 2V Accession Number(s): [id number] cc: JULISA ALFARO [place] [address] Patient Name: HILDA PARMAR MRN: [id number] date: 1950 Sex: F Assigned Patient Location: [facility] Current Patient Location: Accession/Order Numb er: [id number] Exam Date: 10:44 Report Date: 2024 08:39 [...] M.D. Signed By: 04/08/24841 DD/ 8 TD/TT: Griddle Attendant: Reason For Referral Diagnosis 1 Osteoarthritis of ac romioclavicular joint (M19.019) Referral Organization [facility] Referring Provider First Name Juilsa Referring Provider Last Name Angelina Referring Provider Speciality [facility] [place] icine Referred Provider Tavo Malhotra Referred Provider [...] Problem Status W/U Status Risk Notes Problem 56834385 Hypothyroidism, unspecified (E03.9) Active confirmed Problem 32831535 Chronic obstruct sindy pulmonary disease, unspecified (J44.9) Active confirmed Problem 815679524 Disorder of whit e blood cells, 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 Problem 74769804 Anxiety disorder , unspecified (F41.9) Active confirmed Problem Paroxysmal atrial fibrillation (197384988) Paroxysmal atrial fibrillation (I48.0) Active confirmed Problem GERD (gastroesophageal reflux disease) (K21.9) Active confirmed Problem Sinusitis (82546856) Sinusitis (J32.9) Active confirmed Problem Osteoarthritis of acromioclavicular joint (434507392) 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) Active confirmed Vital Signs Blood pressure diastolic 68 mm Hg 02/07/2025 Height 65 in 02/07/2025 Blood pressure systolic 110 mm Hg 02/07/2025 Weight 189.2 lbs 02/07/2025 BMI 31.48 kg/m2 02/07/2025 Encounters Encounter Location Date Provider Diagnosis [address] [address] 09/03/2024 Julisa Alfaro [address] [address] 01/30/2025 Julisa Alfaro Chronic obstructive pulmonary disease, unspecified J44.9 [place] [address] [place] [address] 02/07/2025 Julisa Alfaro [address] [address] 04/09/2024 Julisa Alfaro Left shoulder pain M25.[address] [address] 04/13/2024 Julisa Alfaro Left shoulder pain M25.[address] [address] 04/23/2024 Julisa Angelina Osteoarthritis of acromioclavicular joint M19.019 [facility] [address] [place] [address] 08/03/2024 Julisa Angelina Screening for breast cancer Z12.39 [facility] [address] [place] [address] 08/21/2024 Julisa Angelina [facility] [address] [place] [address] 04/05/2024 Julisa Angelina Left shoulder pain M25.512 and Anxiety disorder, unspecified F41.9 [facility] [address] [place] [address] 02/07/2025 Julisa Angelina Hypothyroidism, unspecified E03.9 and Anxiety disorder, unspecified F41.9 Assessments Encounter Date Diagnosis (ICD Code) Assessment Notes Treatment Notes Treatment Clinical Notes Section Notes 04/05/2024 Left shoulder pain (ICD-10 - M25.512) 02/07/2025 Hypothyroidism, unspecified (ICD-10 - E03.9) 04/09/2024 Left shoulder pain (ICD-10 - M25.512) 04/13/2024 Left shoulder pain (ICD-10 - M25.512) 04/23/2024 Osteoarthritis of acromioclavicular joint (ICD-10 - M19.019) 08/03/2024 Screening for breast cancer (ICD-10 - Z12.39) 01/30/2025 Chronic obstructive pulmonary disease, unspecified (ICD-10 - J44.9) 02/07/2025 Anxiety disorder, unspecified (ICD-10 - F41.9) CSA signed, OARRS reviewed uses sparingly 04/05/2024 Anxiety disorder, unspecified (ICD-10 - F41.9) CSA signed, OARRS reviewed use sparingly Plan Of Treatment Pending Test Test Name Order Date CMP (COMPLETE METABOLIC PANEL) HEMOGLOBIN A1C (GLYCO) 02/07/2025 HEMOGLOBIN A1C (GLYCO) 01/06/2023 IRON, TOTAL 02/07/2025 IRON, TOTAL 01/06/2023 LIPID PANEL (CHOL/TRIG/HDL/LDL) 02/08/20 25 LIPID PANEL (CHOL/TRIG/HDL/LDL) 01/07/20 23 CBC WITH DIFF 01/06/2023 VITAMIN D, 25 LEVEL (TOTAL) 02/07/2025 VITAMIN D, 25 LEVEL (TOTAL) 01/06/2023 Insulin Level 02/07/2025 Insulin Level 01/06/2023 CT Chest Low Dose for Screening* 024 MAMM SCREEN BILAT SUNDEEP 3D GLOBAL* 2024 STOOL OCCULT BLOOD 01/06/2023 CBC AUTO DIFF 01/21/2023 CT LUNG CANCER SCREENING 01/30/2025 CT LUNG CANCER SCREENING 01/06/2023 CT SHOULDER LT WO CON 04/13/2024 MRI SHOULDER LT WO CON 04/09/2024 XR SHOULDER LT 2V or > 04/05/2024 THYROID PANEL (T4/TSH/FREE T3) 5 THYROID PANEL (T4/TSH/FREE T3) 3 Holter Monitor - 3 days up to 14 days CMP (COMP MET WHEELER) w/eGFR CKD-EPI 2024 CBC WITH DIFF 02/07/2025 Insurance Providers Payer Name Payer Address Payer Phone Subscriber Number Group Number Insured Name Patient Relationship to Insured Coverage Start Date Coverage End Date [facility] MEDICARE HMO [address] [place] [address] [id number] Hilda Parmar Self - patient is the insured Medical (General) History Medical History History ICD Code Dysphagia R13.10 Diverticular disease K57.90 COPD (chronic obstructive pulmonary dise ase) J44.9 Arthritis M19.90 Acid reflux K21.9 Hypothyroidism E03.9 Glaucoma H40.9 Surgical History Surgery Date(Month/Year) loop monitor recorder 04/09/2024 colonoscopy 01/2020 cholecystectomy tonsillectomy Left elbow bone spur removal cataract extraction bilateral EGD 01/2022
--- OUTSIDE RECORDS SUMMARY | 2025-02-08 08:08 | XMS_ITS | Clinical Summary ---
Author Organization [facility] Healthcare Address [address] [facility] [place] [address] Care Team Providers Care Home Demonstrator Name Role Phone Unavailable Primary Care Provider [...]
--- OUTSIDE RECORDS SUMMARY | 2025-02-08 08:09 | XMS_ITS | Encounter Summary ---
Author Organization [facility] Address [address] [place] [address] Care Team Providers Care Electronics Mechanic Name Role Phone Julisa Alfaro WAREHOUSE RECORD CLERK Primary Care Provider [phone] Encounter Details Date Type Department Care Team (Late st Contact Info) Description 12/13/[address] [facility] [address] [place] [address] Cedric Peter MD [address] [place] [address] Social History Tobacco Use Types [...] Cedric Peter MD CV IMPLANTABLE CARDIAC DEVICE DE OCEDURES Final Result documented in this encounter Visit Diagnoses Not on filedocumented in this encounter Care Teams Electronics Mechanic Relationship Specialty Start Date End Date Julisa Alfaro CNP [address] [place] [address], [facility] [place] [id number] PCP - General Family Medicine 10/28/23 documented as of this encounter
--- OUTSIDE RECORDS SUMMARY | 2025-02-08 08:09 | XMS_ITS | Clinical Summary ---
Author Organization [facility] Address [address] [place] [address] Care Team Providers Care Diesel Engine Engineer Name Role Phone Julisa Alfaro EZE Primary Care Provider [phone] Allergies Active Allergy Reactions Criticality Noted Date [...] 03/20/2024 Paroxysmal atrial fibrillation 12/05/2023 Overview (12/05/2023): [id number]= 3 Assessment & Plan (12/05/2023 2:35 PM EDT): [id number] = 3 points Age, Female D/w pt [...] with Dr Denis, staff notified to call [facility] about her TTE and stress test to be scheduled. Sinusitis 11/14/2023 Anxiety 09/05/2018 Glaucoma 09/05/2018 Hypothyroidism 09/05/2018 Assessment & Plan (12/05/2023 2:35 PM EDT): Labs for TSH with reflex T4 ordered Encounters Date Type Department Care Team Description 01/01/2025 11:15 AM EDT Office Visit [place] [address] [place] [address] Cedric Peter MD PVC (premature ventricular contraction) (Primary Dx) 01/01/2025 Orders Only [facility] [address] [place] [address] Asia Duncan MA PVC (premature ventricular contraction) (Primary Dx) 12/13/2024 6:10 AM EDT Ancillary Procedure [facility] [address] [place] [address] Awareness of heartbeats 12/13/2024 Orders Only [facility] [address] [place] [address] Cedric Peter MD 11/14/2024 10:40 PM EDT Ancillary Procedure [facility] [address] [place] [address] Awareness of heartbeats 11/14/2024 Orders Only [facility] [address] [place] [phone] Mis Masters MD from Last 3 Months [...] this topic Medical Devices Implanted Type Area Energy Engineer Device Identifier Shelf Expiration Date Model / Serial / Lot Monitor,Lino Gillespie,Dxii+[facility] - [id number] - [id number] Implanted:Qty: 1 on 04/09/2024 by Cedric Peter MD at [facility] Implantable Loop Recorder Convey Computer 05/22/2025 [id number] / [id number] / Procedures Procedure Name Priority Date/Time Associated [...] RECORDER (ILR) Routine 11/14/2024 12:00 AM EDT from Last 3 Months Results * CARDIAC DEVICE CHECK - REMOTE - LOOP RECORDER (ILR) (01/11/2025 12:38 PM EDT) Only the most recent of2 resultswithin the time period is included. BSA 1.98 m2 CPACS us Cedric Peter MD CV IMPLANTABLE CARDIAC DEVICE SD OCEDURES Final Result CPACS * Cardiac device check - Remote loop recorder (ILR) (12/13/2024 12:00 AM EDT) Only the most recent of2 resultswithin the time period is included. Anatomical Region Laterality Modality Other 12/13/2024 Cedric Peter MD CV IMPLANTABLE CARDIAC DEVICE SD OCEDURES Final Result from Last 3 Months Insurance [employer] Care Teams Diesel Engine Engineer Relationship Specialty Start Date End Date Julisa Alfaro CNP [facility] [facility], [place] [address] PCP - General Family Medicine 10/28/23
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
[2025-02-08 08:24] LABS: Hematocrit 43.5 % (36.0-48.0); Hemoglobin 14.5 g/dL (12.0-16.0); Immature Granulocytes Abs Auto 0.00 10^3/uL (0.00-0.03); Immature Granulocytes Pct Auto 0.0 % (0.0-0.5); Lymphocytes Absolute Auto 1.3 10^3/uL (1.2-3.8); Mean Corpuscular HGB Conc 33.3 g/dL (29.9-35.2); Mean Corpuscular Hemoglobin 30.5 pg (26.7-34.0); Mean Corpuscular Volume 91.6 fL (81.0-99.0); Platelet Count 181 10^3/uL (150-450); Red Blood Count 4.75 10^6/uL (4.20-5.40); White Blood Count 3.0 10^3/uL (4.0-11.0)
[2025-02-08 09:12] LABS: Alanine Aminotransferase 25 U/L (14-59); Albumin Globulin Ratio 1.1; Albumin Level 3.7 g/dL (3.4-5.0); Alkaline Phosphatase 75 U/L (46-116); Anion Gap 10.4; Aspartate Amino Transferase 17 U/L (15-37); Blood Urea Nitrogen 14.0 mg/dL (7.0-18.0); Calcium 9.0 mg/dL (8.5-10.1); Carbon Dioxide 31.0 mmol/L (21.0-32.0); Chloride 104 mmol/L (98-107); Cholesterol 164 mg/dL (<=200); Estimated GFR (African America >60 (>=60 mL/min/1.73m^2); Estimated GFR (Non-African Ame >60 (>=60 mL/min/1.73m^2); Free T3 2.54 pg/mL (2.18-3.98); Globulin 3.3 g/dL; Glucose 103 mg/dL (74-106); HDL Cholesterol 55 mg/dL (40-60); Potassium 4.4 mmol/L (3.5-5.1); Sodium 141 mmol/L (136-145); Thyroid Stimulating Hormone 0.141 uIU/mL (0.358-3.740); Total Protein 7.0 g/dL (6.4-8.2); Triglycerides 74 mg/dL (<=150); VLDL CHOLESTEROL 14.8 mg/dL
[2025-02-08 10:52] LABS: Iron 136.0 ug/dL (50.0-170.0)
== END 2025-02-08 08:04 | disposition home or self-care (01) ==
LOC: LAB 08:04
PROVIDERS: PCP Nurse Practitioner Family; Visit Provider Nurse Practitioner Family
DX: E03.9 Hypothyroidism, unspecified (principal); E78.5 Hyperlipidemia, unspecified; R73.09 Other abnormal glucose; D64.9 Anemia, unspecified; E55.9 Vitamin D deficiency, unspecified; R53.83 Other fatigue; I10 Essential (primary) hypertension
CPT/HCPCS: 36415; 80053; 80061; 82306; 83036; 83525; 83540; 84436; 84443; 84481; 85025

== ENCOUNTER 2025-02-27 12:46 | Outpatient (OUT) | payer MEDICARE, SELFPAY ==
--- OUTSIDE RECORDS SUMMARY | 2012-03-22 20:00 | XMS_ITS | Continuity of Care Document ---
Author Organization [facility] Address [address] [place] [address] Phone Care Team Providers Care Specialty Trimmer Name Role Phone Enedina JACOBSON Yan JACOBSON [...] Diagnoses Date Provider Providers Copied on Encounter [facility], [address] [place] [address], [id number], tel:[phone] Renee No Information Enedina JACOBSON Yan. [address] [place] [address], [id number], [place]. tel:[phone] Family History Family Member Type Diagnosis Age At Onset No Information Immunizations Vaccine Date Status Comments Flu (split) (3 yrs or older) administered Source: New Immunization Record Payers Payer name Insurance type Covered constitution party ID Authoriza tion(s) [facility] CI [id number] Social History Type Description Quantity Date Captured [...]
--- OUTSIDE RECORDS SUMMARY | 2025-02-13 11:10 | XMS_ITS | Encounter Summary ---
Author Organization [facility] Address [address] [place] [address] Care Team Providers Care Broadcast Field Supervisor Name Role Phone Julisa Alfaro DIPLOMATIC INTERPRETER/TRANSLATOR Primary Care Provider [phone] Encounter Details Date Type Department Care Team (Latest Contact Info) Description 02/13/2025 11:10 AM EDT Ancillary Procedure [facility] Cardiology Clinic [address] [place] [id number] Awareness of heartbeats Social History Tobacco Use Types Packs/Day Years [...] CARDIAC DEVICE CHECK CHECK - REMOTE Routine 02/15/2025 10:32 AM EDT Awareness of heartbeats documented in this encounter Results * CARDIAC DEVICE CHECK - REMOTE - LOOP RECORDER (ILR) (02/15/2025 10:32 AM EDT) us Cedric Peter MD CV IMPLANTABLE CARDIAC DEVICE [place] OCEDURES Final Result CPACS documented in this encounter Visit Diagnoses Diagnosis Awareness of heartbeats documented in this encounter Care Teams Broadcast Field Supervisor Relationship Specialty Start Date End Date Julisa Alfaro CNP [facility], [place] [address] PCP - General Family Medicine 10/28/23 documented as of this encounter
--- NOTE | 2025-02-27 12:49 | CT_ITS ---
The [address] [address] Patient Name: HILDA PARMAR MRN: [id number] date: 1950 Sex: F Assigned Patient Location: CT Current Patient Location: Accession/Order Number: [id number] Exam Date: 02/27/2025 12:55 Report Date: 02/28/2025 08:15 At the request of: KAT PARIKH Procedure: CT lung screening low-dose LOW-DOSE SCREENING CHEST CT WITHOUT CONTRAST COMPARISON: 02/03/2024 CLINICAL DATA: Former smoker Z87.891 Spiral axial unenhanced low-dose images were obtained through the chest. Images were reviewed using both narrow and wide window settings. This CT exam was performed using one or more following dose reduction techniques: Automated exposure control, adjustment of the mA and/or kV according to patient size, or use of iterative reconstruction technique. The heart is within normal limits for size. No pericardial effusion is seen. There is minor coronary artery disease. No aortic aneurysm is identified. A small amount of plaque is present at the aortic arch and proximal great vessels. Similar nonpathologic mediastinal lymph nodes are seen. The bony structures are intact. Minor linear atelectasis or scarring is seen at the lung bases. No additional consolidation, pleural effusion or pneumothorax is seen. There are a few tiny stable right upper lobe pulmonary nodules on images 33, 47 and 86. No new nodularity is seen. Limited imaging through the upper abdomen shows no contributory findings. CT/CT lung screening low-dose IMPRESSION: TINY STABLE RIGHT UPPER LOBE PULMONARY NODULES. Numerous category 2 - benign Twelve-month low-dose CT follow-up suggested. Impression dictated by: Janeth Miguel M.D. 02/28/2025 8:15 AM Dictation Location: [facility] CENTERKeepRecipes Electronically authenticated by: [id number] Y Date: 02/28/2025 08:15
--- OUTSIDE RECORDS SUMMARY | 2025-02-27 12:49 | XMS_ITS | Encounter Summary ---
Author Organization [facility] Address [address] [place] [address] Care Team Providers Care Dope House Operator Helper Name Role Phone Julisa Alfaro CNP Primary Care Provider [phone] Encounter Details Date Type Department Care Team (Late st Contact Info) Description 02/13/2025 Orders Only [facility] Cardiology Clinic [address] [place] [address] Mis Masters MD [address] [place] [address] Social History Tobacco Use Types [...] - REMOTE - LOOP RECORDER (ILR) Routine 02/13/2025 12:00 AM EDT documented in this encounter Results * Cardiac device check - Remote loop recorder (ILR) (02/13/2025 12:00 AM EDT) Anatomical Region Laterality Modality Other 02/13/2025 Mis Masters MD CV IMPLANTABLE CARDIAC DEVICE PROCEDURES Final Result documented in this encounter Visit Diagnoses Not on filedocumented in this encounter Care Teams Dope House Operator Helper Relationship Specialty Start Date End Date Julisa Alfaro CNP [address] [place] [address], [facility] [place] [id number] PCP - General Family Medicine 10/28/23 documented as of this encounter
--- OUTSIDE RECORDS SUMMARY | 2025-02-27 12:49 | XMS_ITS | Patient Health Record ---
Author Organization [facility] [place] Address [address] [place] [address] Care Team Providers Care Expediter Clerk Name Role Phone Julisa Parikh Primary Care Provider [phone] Allergies Allergen (clinical drug ingredient) Drug/Non Drug Allergy documented on EMR Reaction Allergy Type Onset Date Status sulfamethoxazole / trimethoprim Bactrim nausea and vomiting Drug Allergy Active codeine Codeine Unknown Drug Allergy Active Results Component Value Reference Range Notes XR shoulder LT min 2V Reviewed date:04/09/2024 08:59:40 AM Interpretation: Performing Lab: Notes/Report: Source Facility: [place] [address] XRay Report Signed Patient: HILDA MATOS MR#: [id number] : 1950 Acct:[id number] Age/Sex: 73 / F ADM Date: 04/05/24 Loc: RAD Attending Dr: JULISA PARIKH Ordering Physician: JULISA PARIKH Date of Service: 04/05/24 Procedure(s): XR shoulder LT min 2V Accession Number(s): [id number] cc: JULISA PARIKH [place] [id number] Patient Name: HILDA MATOS MRN: [id number] date: 1950 Sex: F Assigned Patient Location: RAD Current Patient Location: Accession/Order Number: [id number] Exam Date: 04/05/2024 10:44 Report Date: 2024 08:39 At the request of: JULISA PARIKH Procedure: XR shoulder LT min 2V PROCEDURE: [...] M.D. Signed By: 04/08/24841 DD/ 8 TD/TT: Yacht Captain: CT shoulder LT wo con Reviewed date:04/23/2024 01:28:26 PM Interpretation: Performing Lab: Notes/Report: Source Facility: [place] [address] CT Scan Report Signed Patient: HILDA MATOS MR#: [id number] : 1950 Acct:[id number] Age/Sex: 74 / F ADM Date: 04/19/24 Loc: CT Attending Dr: JULISA PARIKH Ordering Physician: JULISA PARIKH Date of Service: 04/19/24 Procedure(s): CT shoulder LT wo con Accession Number(s): [id number] cc: JULISA PARIKH [place] [id number] Patient Name: HILDA MATOS MRN: [id number] date: 1950 Sex: F Assigned Patient Location: CT Current Patient Location: Accession/Order Number: [id number] Exam Date: 04/19/2024 10:05 Report Date: 04/22/2024 07:10 At the request of: JULISA PARIKH Procedure: CT shoulder LT wo con CT [...] fracture or dislocation. Electronically authenticated by: CATHERINE ARORA Date: 04/22/2024 07:10 Dictated By: Catherine Arora M.D. Signed By: 04/22/24711 DD/ 9 TD/TT: Yacht Captain: TARI echo doppler complete Reviewed date:01/17/2025 01:21:17 PM Interpretation: Performing Lab: Notes/Report: Source Facility: [place] [address] Cardiology Report Signed Patient: HILDA MATOS MR#: [id number] : 1950 Acct:[id number] Age/Sex: 74 / F ADM Date: 01/15/25 Loc: CARD Attending Dr: Cedric Peter M.D. Ordering Physician: Cedric Peter M.D. Date of Service: 01/15/25 Procedure(s): CA echo doppler complete Accession Number(s): [id number] cc: JULISA PARIKH ; Cedric Petre M.D. Patient Name: HILDA MATOS MR#: [id number] : 1950 Exam Date: 01/15/2025 Ordering Doctor: [...] Area (VTI): 2.96 cm2, 2.96 cm2 Deceleration [place]: 1.71 m/s2 Pressure Half-Time: 717.29 ms Peak [...] 62.88 ml, 62.88 ml Dictated by: Dez Lr M.D. on 01/15/2025 at 18:07 Approved by: Dez Lr M.D. on 01/15/2025 at 18:12 Dictated By: DEZ LR Signed By: 01/15/251812 DD/ 11 TD/TT: Yacht Captain: CBC AUTO DIFF Reviewed date:02/08/2025 10:26:02 AM Interpretation: Performing Lab: Notes/Report: [facility] , White Blood Count 3.0 4.0-11.0 10 3/uL Red Blood Count 4.75 4.20-5.40 10 6/uL Hemoglobin 14.5 12.0-16.0 g/dL Hematocrit 43.5 36.0-48.0 % Mean Corpuscular Volume 91.6 81.0-99.0 fL Mean Corpuscular Hemoglobin 30.5 26.7-34.0 pg Mean Corpuscular HGB Conc 33.3 29.9-35.2 g/dL Red Cell Distribution Width 13.2 11.0-15.0 % Platelet Count 181 150-450 10 3/uL Mean Platelet Volume 9.8 9.5-13.5 fL Neutrophils Percent Auto 38.6 43.0-75.0 % Lymphocytes Percent Auto 43.2 20.5-60.0 % Monocytes Percent Auto 13.2 1.7-12.0 % Eosinophils Percent Auto 4.3 0.9-7.0 % Basophils Percent Auto 0.7 0.2-2.0 % Immature Granulocytes Pct Auto 0.0 0.0-0.5 % Neutrophils Absolute Auto 1.2 1.4-6.5 10 3/uL Lymphocytes Absolute Auto 1.3 1.2-3.8 10 3/uL Monocytes Absolute Auto 0.4 0.3-0.8 10 3/uL Eosinophils Absolute Auto 0.1 0.0-0.7 10 3/uL Basophils Absolute Auto 0.0 0.0-0.1 10 3/uL Immature Granulocytes Abs Auto 0.00 0.00-0.03 10 3/uL Performing Lab: see note ML - [facility] FREE T3 Reviewed date:02/08/2025 10:26:02 AM Interpretation: Performing Lab: Notes/Report: [facility] , Free T3 2.54 2.18-3.98 pg/mL Performing Lab: see note ML - [facility] GLYCOHEMOGLOBIN A1C Reviewed date:02/08/2025 10:26:02 AM Interpretation: Performing Lab: Notes/Report: [facility] , Glycohemoglobin A1C 5.2 4.5-6.2 % ADA RECOMMENDED LIMIT 4.0 - 6.0 > 7.0 ADA THERAPEUTIC TARGET < 7.0 ACTION SUGGESTED Estimated Average Glucose 103 Performing Lab: see note ML - [facility] INSULIN Reviewed date:02/12/2025 11:13:11 AM Interpretation: Performing Lab: Notes/Report: [facility] , Insulin 6.2 2.6-24.9 uIU/mL [address] [place], [place] [id number] Performed at: - [facility] [place] Rfid Analyst: Pedro Awan PhD, Phone: [phone] Performing Lab: see note - [facility] LB IRON Reviewed date:02/08/2025 01:02:56 PM Interpretation: Performing Lab: Notes/Report: [facility] , Iron 136.0 50.0-170.0 ug/dL Performing Lab: see note ML - [facility] LB LIPID PROFILE Reviewed date:02/08/2025 10:26:02 AM Interpretation: Performing Lab: Notes/Report: [facility] , Triglycerides 74 <=150 mg/dL Cholesterol 164 <=200 mg/dL HDL Cholesterol 55 40-60 mg/dL > or =60 mg/dl - LOW CARDIOVASCULAR RISK <40 mg/dl - HIGH CARDIOVASCULAR RISK LDL Cholesterol Calculated 94.2 130-159 mg/dl BORDERLINE HIGH <100 mg/dl OPTIMAL 160-189 mg/dl HIGH 100-129 mg/dl NEAR OR ABOVE OPTIMAL >190 mg/dl VERY HIGH VLDL CHOLESTEROL 14.8 Chol HDL Ratio 3.0 3.3 - 4.4 LOW RISK >11.0 HIGH RISK 4.4 - 7.1 AVERAGE RISK 7.1 - 11.0 MODERATE RISK Performing Lab: see note ML - [facility] LB PROF 14(COMP METB) Reviewed date:02/08/2025 10:26:02 AM Interpretation: Performing Lab: Notes/Report: [facility] , Sodium 141 136-145 mmol/L Potassium 4.4 3.5-5.1 mmol/L Chloride 104 98-107 mmol/L Carbon Dioxide 31.0 21.0-32.0 mmol/L Anion Gap 10.4 Glucose 103 74-106 mg/dL Blood Urea Nitrogen 14.0 7.0-18.0 mg/dL Creatinine 0.68 0.55-1.02 mg/dL Estimated GFR ( Kayla >60 >=60 mL/mi n/1.73m 2 Estimated GFR (Non- Queenie >60 >=60 mL/mi n/1.73m 2 BUN Creatinine Ratio 20.6 Calcium 9.0 8.5-10.1 mg/dL Bilirubin Total 0.6 0.2-1.0 mg/dL Aspartate Amino Transferase 17 15-37 U/L Alanine Aminotransferase 25 14-59 U/L Alkaline Phosphatase 75 46-116 U/L Total Protein 7.0 6.4-8.2 g/dL Albumin Level 3.7 3.4-5.0 g/dL Globulin 3.3 Albumin Globulin Ratio 1.1 Performing Lab: see note ML - [facility] LB T4 Reviewed date:02/08/2025 10:26:02 AM Interpretation: Performing Lab: Notes/Report: [facility] , T4 Thyroxine 9.10 4.80-13.90 ug/dL Performing Lab: see note ML - [facility] LB TSH Reviewed date:02/08/2025 10:26:02 AM Interpretation: Performing Lab: Notes/Report: [facility] , Thyroid Stimulating Hormone 0.141 0.358-3.740 u IU/mL Performing Lab: see note ML - [facility] LB VITAMIN D 25 [place] Reviewed date:02/08/2025 01:49:06 PM Interpretation: Performing Lab: Notes/Report: [facility] , Vitamin D 35.0 20-<30 ng/mL Vit D insufficient <20 ng/mL Vit D deficient >100 ng/mL Potential Toxicity 30-100 ng/mL Vit D sufficient Performing Lab: see note ML - [facility] LB Reason For Referral Diagnosis 1 Osteoarthritis of ac romioclavicular joint (M19.019) Referral Organization [facility] Referring Provider First Name Julisa Referring Provider Last Name Angelina Referring Provider Speciality [facility] kel Referred Provider Tavo Malhotra Referred Provider Specialty Orthopedic S urgery Referral Priority Routine Medications Medication SIG (Take, Route, Frequency, Duration) Notes Start Date End Date Status Synthroid 137 MCG TAKE 1 TABLET EVERY MORNING; Duration: 90 days Active Pantoprazole Sodium 40 MG 1 tablet Orall y Once a day Active ALPRAZolam 0.25 MG 1 tablet Orally Twic e a day prn; Duration: 30 days 02/07/2025 Active Albuterol Sulfate HFA 108 (90 Base) MCG/ACT 1 puff as needed Inhalation every 4 hrs; Duration: 30 days 01/18/2023 Active Dorzolamide HCl-Timolol Mal PF 22.3-6.8 MG/ML 1 drop into affected eye Ophthalmic Twice a day Active Immunizations Vaccine Route Administration Date Status Sophia Jimenez Pfizer Syringe Pre -Filled 30 mcg/0.3 mL Unknown 03/20/2024 Administered Flu, (79898) -historic- Spli t, Prsrvtve Free, for Intradermal use Unknown 03/29/2017 Administered Flu, Fluad (45663) 65 yrs + High Dose Seasonal (1428-9194) Unknown 03/24/2015 Administered Flu, Fluad (50050) 65 yrs + High Dose Seasonal () Unknown 03/03/2017 Administered Flu, Fluad (36395) 65 yrs + High Dose Seasonal (7111-9110) Unknown 03/20/2024 Administered Flu, Fluad (31809) 65 yrs an d older, single-dose syringe (8565-6995) Unknown 03/14/2018 Administered Flu, Fluad (40305) 65 yrs an d older, single-dose syringe () Unknown 03/09/2019 Administered Flu, Fluad (85620) 65 yrs+, single-dose syringe (8783-6417) Unknown 03/23/2021 Administered Flu, Fluad (70347) 65 yrs+, single-dose syringe (0962-3412) Unknown 04/04/2023 Administered Flu, Fluzone High-Dose (2022 -2023) (25323) 65 yrs+ Unknown 03/13/2020 Administered Flu, Fluzone High-Dose (2022 -2023) (10772) 65 yrs+ Unknown 03/30/2022 Administered Flu, Unspecified Unknown 03/26/2019 Administered Pneumococcal (Prevnar 13) Unknown 06/03/2017 Administer ed SARS-COV-2 (COVID 19 Pfizer 30mcg/0.3mL) Unknown 09/10/2020 Administered SARS-COV-2 (COVID 19 Pfizer 30mcg/0.3mL) Unknown 10/08/2020 Administered SARS-COV-2 (COVID 19 Pfizer 30mcg/0.3mL) Unknown 04/20/2021 Administered Spikevax Moderna Syringe Pre -Filled 50 mcg/0.5 mL Unknown 04/04/2023 Administered Tdap (Boostrix) Unknown 08/27/2018 Administered Social History Tobacco Use: Social History Observation [...] Problem Status W/U Status Risk Notes Problem Hypothyroidism (48283469) Hypothyroidism, unspecified (E03.9) Active confirmed Problem Chronic obstructive pulmonary disease (68615275) Chronic obstructive pulmonary disease, unspecified (J44.9) Active confirmed Problem 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, 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 Problem Anxiety disorder (847820971) Anxiety disorder, unspecified (F41.9) Active confirmed Problem Paroxysmal atrial fibrillation (684477202) Paroxysmal atrial fibrillation (I48.0) Active confirmed Problem Gastroesophageal reflux disease (497227795) GERD (gastroesophageal reflux disease) (K21.9) Active confirmed Problem Sinusitis (93839277) Sinusitis (J32.9) Active confirmed Problem Osteoarthritis of acromioclavicular joint (362631149) 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) Active confirmed Vital Signs Blood pressure diastolic 68 mm Hg 02/07/2025 Height 65 in 02/07/2025 Blood pressure systolic 110 mm Hg 02/07/2025 Weight 189.2 lbs 02/07/2025 BMI 31.48 kg/m2 02/07/2025 Encounters Encounter Location Date Provider Diagnosis [facility] [address] [place] [place] [address] 09/03/2024 Julisa Parikh [facility] [address] [place] [address] 01/30/2025 Julisa Parikh Chronic obstructive pulmonary disease, unspecified J44.9 [facility] [address] [place] [address] 02/07/2025 Julisa Parikh [facility] [address] [place] [address] 02/08/2025 Julisa Parikh [facility] [address] [place] [address] 04/09/2024 Julisa Parikh Left shoulder pain M25.512 [facility] [address] [place] [address] 04/13/2024 Julisa Parikh Left shoulder pain M25.512 [facility] [address] [place] [address] 04/23/2024 Julisa Parikh Osteoarthritis of acromioclavicular joint M19.019 [facility] [address] [place] [address] 08/03/2024 Julisa Parikh Screening for breast cancer Z12.39 [facility] [address] [place] [place] [address] 08/21/2024 Julisa Parikh [facility] [address] [place] [place] [address] 04/05/2024 Julisajose cruz Parikh Left shoulder pain M25.512 and Anxiety disorder, unspecified F41.9 [facility] [address] [place] [address] 02/07/2025 Julisa Parikh Hypothyroidism, unspecified E03.9 and Anxiety disorder, unspecified [...] (COMPLETE METABOLIC PANEL) 3 HEMOGLOBIN A1C (GLYCO) 02/07/2025 HEMOGLOBIN A1C (GLYCO) [...] CBC WITH DIFF 02/07/2025 Next Appt Details Provider Name:Sigifredo De La Torre, 10:30:00 AM, [address] [place], [address], Insurance Providers Payer Name Payer Address Payer Phone Subscriber Number Group Number Insured Name Patient Relationship to Insured Coverage Start Date Coverage End Date O [employer] HMO [address] [place] [phone] [id number] Hilda Matos Self - patient is the insured Medical (General) History Medical History History ICD Code Dysphagia R13.10 Diverticular disease K57.90 COPD (chronic obstructive pulmonary dise ase) J44.9 Arthritis M19.90 Acid reflux K21.9 Hypothyroidism E03.9 Glaucoma H40.9 Surgical History Surgery Date(Month/Year) loop monitor recorder 04/09/2024 colonoscopy 01/2020 EGD 01/2022 cataract extraction bilateral Left elbow bone spur removal tonsillectomy cholecystectomy
--- OUTSIDE RECORDS SUMMARY | 2025-02-27 12:49 | XMS_ITS | Encounter Summary ---
Author Organization [facility] Address [address] [place] [address] Care Team Providers Care Housekeeper Nanny Name Role Phone Julisa Alfaro CARD TENDER Primary Care Provider [phone] Encounter Details Date Type Department Care Team (Late st Contact Info) Description 12/13/2024 Orders Only [facility] Cardiology Clinic [address] [place] [address] Cedric Peter MD [address] [place] [address] Social History Tobacco Use Types [...] Cedric Peter MD CV IMPLANTABLE CARDIAC DEVICE [place] OCEDURES Final Result documented in this encounter Visit Diagnoses Not on filedocumented in this encounter Care Teams Housekeeper Nanny Relationship Specialty Start Date End Date Julisa Alfaro CNP [address] [place] [address], [facility] [place] [phone] PCP - General Family Medicine 10/28/23 documented as of this encounter
--- OUTSIDE RECORDS SUMMARY | 2025-02-27 12:49 | XMS_ITS | Clinical Summary ---
Author Organization [facility] Address [address] [place] [address] Care Team Providers Care Compressor Battery Pellets Name Role Phone Julisa Alfaro EZE Primary Care Provider [phone] Allergies Active Allergy Reactions Criticality Noted Date [...] 03/20/2024 Paroxysmal atrial fibrillation 12/05/2023 Overview (12/05/2023): [id number]= 3 Assessment & Plan (12/05/2023 2:35 PM EDT): [id number] = 3 points Age, Female D/w pt [...] and electrolytes. RTC as scheduled with Dr Densi, staff notified to call [facility] about her TTE and stress test to be scheduled. Sinusitis 11/14/2023 Anxiety 09/05/2018 Glaucoma 09/05/2018 Hypothyroidism 09/05/2018 Assessment & Plan (12/05/2023 2:35 PM EDT): Labs for TSH with reflex T4 ordered Encounters Date Type Department Care Team Description 02/13/2025 11:10 AM EDT Ancillary Procedure [facility] [address] [place] [phone] Awareness of heartbeats 02/13/2025 Orders Only [facility] [address] [place] [phone] Mis Masters MD 01/01/2025 11:15 AM EDT Office Visit [address] [phone] Cedric Peter MD PVC (premature ventricular contraction) (Primary Dx) 01/01/2025 Orders Only [facility] [address] [place] [address] Asia Duncan MA PVC (premature ventricular contraction) (Primary Dx) 12/13/2024 6:10 AM EDT Ancillary Procedure [facility] [address] [place] [phone] Awareness of heartbeats 12/13/2024 Orders Only [facility] [address] [place] [phone] Cedric Peter MD from Last 3 Months Family History [...] PCV20 or PCV21) 06/03/2018 06/03/2017 COVID-19 Vaccine (6 - season) 2025 03/20/2024, 04/04/2023, 04/20/2021, Additional history exists Influenza [...] this topic Medical Devices Implanted Type Area Power Machine Operator Device Identifier Shelf Expiration Date Model / Serial / Lot Monitor,Lino Gillespie,Dx[employer]+[facility] - [id number] - [id number] Implanted:Qty: 1 on 04/09/2024 by Cedric Peter MD at [facility] Implantable Loop Recorder [employer] 05/22/2025 [id number] / [id number] / Procedures Procedure Name Priority Date/Time Associated Diagnosis Comments CARDIAC DEVICE CHECK CHECK - REMOTE Routine 02/15/2025 10:32 AM EDT Awareness of heartbeats CARDIAC DEVICE CHECK - REMOTE - LOOP RECORDER (ILR) Routine 02/13/2025 12:00 AM EDT CARDIAC DEVICE CHECK CHECK - REMOTE Routine 01/11/2025 12:38 PM EDT Awareness of heartbeats CARDIAC DEVICE CHECK - REMOTE - LOOP RECORDER (ILR) Routine 12/13/2024 12:00 AM EDT from Last 3 Months Results * CARDIAC DEVICE CHECK - REMOTE - LOOP RECORDER (ILR) (02/15/2025 10:32 AM EDT) Only the most recent of2 resultswithin the time period is included. us Cedric Peter MD CV IMPLANTABLE CARDIAC DEVICE LA OCEDURES Final Result CPACS * Cardiac device check - Remote loop recorder (ILR) (02/13/2025 12:00 AM EDT) Only the most recent of2 resultswithin the time period is included. Anatomical Region Laterality Modality Other 02/13/2025 Mis Masters MD CV IMPLANTABLE CARDIAC DEVICE PROCEDURES Final Result from Last 3 Months Insurance [employer] Care Teams Compressor Battery Pellets Relationship Specialty Start Date End Date Julisa Alfaro CNP [address] [place] [address], [facility] [place], [place] [id number] PCP - General Family Medicine 10/28/23
--- OUTSIDE RECORDS SUMMARY | 2025-02-27 12:49 | XMS_ITS | Clinical Summary ---
Author Organization [facility] Address [address] [place] [address] Care Team Providers Care Merchandise Worker Name Role Phone Unavailable Primary Care Provider [...]
--- OUTSIDE RECORDS SUMMARY | 2025-02-27 12:51 | XMS_ITS | CCD ---
Author Organization [facility] Care Team Providers Care Director Custom Name Role Phone Ousmane De La Torre Unavailable Vernon Bajwa Unavailable JULISA PARIKH Admitting Unavailable JULISA PARIKH Attending Unavailable JL, JULISA Primary Care Unavailable [...] Malhotra Admitting Unavailable Tavo Malhotra Attending Unavailable Julisa Parikh Christina Admitting Unavailable Jl, Julisa Vasquez Attending Unavailable Ousmane De La Torre Primary Care Unavailable FRANCISCO, CRISTIAN Referring Unavailable FRANCISCO, CRISTIAN Referring Unavailable FRANCISCO, CRISTIAN Referring Unavailable FRANCISCO, CRISTIAN Referring Unavailable FRANCISCO, CRISTIAN Referring Unavailable FRANCISCO, CRISTIAN Referring Unavailable FRANCISCO, CRISTIAN Referring Unavailable FRANCISCO, CRISTIAN Referring Unavailable FRANCISCO, CRISTIAN Admitting Unavailable FRANCISCO, CRISTIAN Attending Unavailable FRANCISCO, CRISTIAN Referring Unavailable FRANCISCO, CRISTIAN Referring Unavailable FRANCISCO, CRISTIAN Referring Unavailable FRANCISCO, CRISTIAN Attending Unavailable FRANCISCO, CRISTIAN Attending Unavailable FRANCISCO, CRISTIAN Attending Unavailable FRANCISCO, CRISTIAN Referring Unavailable Allergies Allergy Classification Reported Allergen(s) Allergy Type Date of Onset Reaction(s) Facility (2 sources) Codeine; Translations: [CODEINE] Drug Allergy 3 [facility] Repository (1 source) Sulfamethoxazole / Trimethoprim Drug Allergy [facility] Repository (1 source) Sulfamethoxazole / Trimethoprim; Translations: [SULFAMETHOXAZOLE-TR IMETHOPRIM] Drug Allergy 4 [facility] Repository Medications Current Medications Medication Drug [...] Test Name Value Interpretation Reference Range Facility Orders Onlyon 02-13-2025 Orders Only [id number] Hilda Matos 1950 F Date Provider Department Center 02/13/2025 [facility] Family History Problem Relation Age of Onset Angina Maternal Grandmother Family Status - Relation Status Age at Mother Father Maternal Grandmother Normal [facility] Office Visiton 01-01-2025 Follow-up visit [id number] Hilda Matos 1950 F Date Provider Department Center 01/01/2025 CRISTIAN BEAN [facility] Family History Problem Relation Age of Onset Angina Maternal Grandmother Family Status - Relation Status Age at Mother Father Maternal Grandmother Level of Service:94180 [place] OFFICE/OUTPATIENT ESTABLISHED LOW MDM 20 MIN Normal [facility] Orders Onlyon 11-14-2024 Orders Only [id number] Hilda Matos 1950 Date Provider Department Center 11/14/2024 [facility] SHORT H[facility] C[facility] Family History Problem Relation Age of Onset Angina Maternal Grandmother Family Status - Relation Status Age at Maternal Grandmother Normal [facility] MM screening mammo BI w/CADo n 08-28-2024 MM screening mammo BI w/CAD [facility] [address] [place] [address] Mammography Report Signed Patient: Hilda Matos MR#: [id number] : 1950 Acct:[id number] Age/Sex: 74 / F Adm Date: 08/28/24 Loc: [place] Room: Type: [facility] Attending Dr: Julisa Parikh IOS ARCHITECT-C Ordering Provider: Julisa Parikh CNP Date of Service: 08/28/24 Procedure(s): MM screening mammo BI w/CAD Accession Number(s): ([id number]) MM/MM screening mammo BI w/CAD: Z12.39 Copies [...] Janeth Miguel M.D.08/28/2024 2:45 PM Dictation Location: [facility] Dictated By: Janeth Miguel MD 08/28/24 1443 Signed By: 08/28/24 1445 Normal [facility] Office Visiton 05-22-2024 Follow-up visit [id number] Hilda Matos 1950 F Date Provider Department Center 05/22/2024 CRISTIAN BEAN [facility] Family History Problem Relation Age of Onset Angina Maternal Grandmother Family Status - Relation Status Age at Maternal Grandmother Level of Service:16587 [place] OFFICE/OUTPATIENT ESTABLISHED LOW MDM 20 MIN Normal [facility] HPon 04-09-2024 [facility] Electrophysiology Consult Note [place] Cardiology - [facility] Reason for visit: HPI: [...] lead EKG: (more content not included)... Normal [facility] NURSNOTEon 04-09-2024 NURSNOTE RN educated pt on d/ c instructions. This included: site care, limited physical activity, resume normal diet, future appointments, medications, and moderate sedation instructions. RN educated pt on when to notify physician and when to go to the hospital. RN encouraged pt to voice any questions or concerns, and answered any questions or concerns if pt verbalized. Normal [facility] Office Visiton 03-20-2024 Follow-up visit [id number] Hilda Matos 1950 F Date Provider Department Center 03/20/2024 CRISTIAN BEAN Family History Problem Relation Age of Onset Angina Maternal Grandmother Family Status - Relation Status Age at Maternal Grandmother Level of Service:38307 [place] OFFICE/OUTPATIENT NEW MODERATE MDM 45 MINUTES Normal [facility] CT CHEST WO CONon 01-14-2022 CT [...] by: ROBERTA COLLAZO Date: 2022-01-14 16:24 Normal [facility] INSULINon 10-09-2021 Insulin 5.2 uIU/mL Normal 2.6-24.9 [facility] Comment on above: Performed By: #### I NSULIN #### [facility] Laboratory [address] [place] [address] Dr. Raf Houston CBC AUTO DIFFon 10-08-2021 BASO # 0.1 103/ul Normal 0.0-0.1 [facility] Comment on above: Performed By: #### C BC #### [facility] [address] [place] [address] Dr. Raf Houston Basophils/100 WBC (Bld) 1.1 % Normal 0.2-2.0 [facility] Comment on above: Performed By: #### C BC #### [facility] [address] [place] [address] Dr. Raf Houston EO # 0.1 103/ul Normal 0.0-0.7 [facility] Comment on above: Performed By: #### C BC #### [facility] [address] [place] [address] Dr. Raf Houston Eosinophils/100 WBC (Bld) 1.6 % Normal 0.9-7.0 [facility] Comment on above: Performed By: #### C BC #### [facility] [address] [place] [address] Dr. Raf Houston Erythrocyte distribution width (RBC) [Ratio] 13.2 % Normal 11.0-15.0 [facility] Comment on above: Performed By: #### C BC #### [facility] [address] [place] [address] Dr. Raf Houston Hematocrit (Bld) [Volume fraction] 45.2 % Normal 36.0-48.0 [facility] Comment on above: Performed By: #### C BC #### [facility] [address] [place] [address] Dr. Raf Houston Hemoglobin (Bld) [Mass/Vol] 14.9 g/dL Normal 12.0-16.0 [facility] Comment on above: Performed By: #### C BC #### [facility] [address] [place] [address] Dr. Raf Houston IG # 0.01 10e3/ul Normal 0.00-0.03 [facility] Comment on above: Performed By: #### C BC #### [facility] [address] [place] [address] Dr. Raf Houston IG % 0.2 % Normal 0.0-0.5 [facility] Comment on above: Performed By: #### C BC #### [facility] [address] [place] [address] Dr. Raf Houston LYMPH # 1.5 103/ul Normal 1.2-3.8 [facility] Comment on above: Performed By: #### C BC #### [facility] [address] [place] [address] Dr. Raf Houston Lymphocytes/100 WBC (Bld) 33.9 % Normal 20.5-60.0 [facility] Comment on above: Performed By: #### C BC #### [facility] [address] [place] [address] Dr. Raf Houston MANUAL DIFF REQ NO Normal [facility] Comment on above: Performed By: #### C BC #### [facility] [address] [place] [address] Dr. Raf Houston MCH (RBC) [Entitic mass] 30.6 pg Normal 26.7-34.0 [facility] Comment on above: Performed By: #### C BC #### [facility] [address] [place] [address] Dr. Raf Houston MCHC (RBC) [Mass/Vol] 33.0 g/dL Normal 29.9-35.2 [facility] Comment on above: Performed By: #### C BC #### [facility] [address] [place] [address] Dr. Raf Houston MCV (RBC) [Entitic vol] 92.8 fL Normal 81.0-99.0 [facility] Comment on above: Performed By: #### C BC #### [facility] [address] [address] [address] Raf Houston MONO # 0.5 103/ul Normal 0.3-0.8 [facility] Comment on above: Performed By: #### C BC #### [facility] [address] [place] [address] Dr. Raf Houston Monocytes/100 WBC (Bld) 11.0 % Normal 1.7-12.0 [facility] Comment on above: Performed By: #### C BC #### [facility] [address] [place] [address] Dr. Raf Houston NEUT # 2.3 103/ul Normal 1.4-6.5 [facility] Comment on above: Performed By: #### C BC #### [facility] [address] [place] [address] Dr. Raf Houston Neutrophils/100 WBC (Bld) 52.2 % Normal 43.0-75.0 [facility] Comment on above: Performed By: #### C BC #### [facility] [address] [place] [address] Dr. Raf Houston Platelet mean volume (Bld) [Entitic vol] 9.6 fL Normal 9.5-13.5 [facility] Comment on above: Performed By: #### C BC #### [facility] [address] [place] [address] Dr. Raf Houston PLT 215 103/ul Normal 150-450 [facility] Comment on above: Performed By: #### C BC #### [facility] [address] [place] [address] Dr. Raf Houston RBC 4.87 106/ul Normal 4.20-5.40 [facility] Comment on above: Performed By: #### C BC #### [facility] [address] [address] [address] Raf Houston WBC 4.5 103/ul Normal 4.0-11.0 [facility] Comment on above: Performed By: #### C BC #### [facility] [address] [address] [address] Raf Houston FREE THYROXINE INDEX T7on FTI 3.61 Normal [facility] Comment on above: Performed By: #### T 7, CMP, TSH, LIPID #### [facility] [address] [address] [address] Raf Houston T3U 41.0 % Critically high 23.5-40.5 [facility] Comment on above: Performed By: #### T 7, CMP, TSH, LIPID #### [facility] [address] [place] [address] Dr. Raf Houston T4 [Mass/Vol] 8.80 ug/dL Normal 4.80-13.90 [facility] Comment on above: Performed By: #### T 7, CMP, TSH, LIPID #### [facility] [address] [place] [address] Dr. Raf Houston GLYCOHEMOGLOBIN A1Con 2021 ADA RECOMMENDATION SEE BELOW Normal [facility] Comment on above: Result Comment: ADA RECOMMENDED LIMIT 4.0 - 6.0 ADA THERAPEUTIC TARGET < 7.0 ACTION SUGGESTED > 7.0 Performed By: #### A 1C #### [facility] [address] [place] [address] Dr. Raf Houston Glucose [Mass/Vol] 111 mg/dL Normal [facility] Comment on above: Performed By: #### A 1C #### [facility] [address] [place] [address] Dr. Raf Houston HbA1c (Bld) [Mass fraction] 5.5 % Normal 4.5-6.2 [facility] Comment on above: Performed By: #### A 1C #### [facility] [address] [address] [address] Raf Houston IRONon 10-08-2021 Iron [Mass/Vol] 139.0 ug/dL Normal 50.0-170.0 [facility] Comment on above: Performed By: #### I ISABEL #### [facility] [address] [place] [address] Dr. Raf Houston LIPID PROFILEon 10-08-2021 CHOL-HDL RATIO NORM SEE BELOW Normal [facility] Comment on above: Result Comment: 3.3 - 4.4 LOW RISK 4.4 - 7.1 AVERAGE RISK 7.1 - 11.0 MODERATE RISK >11.0 HIGH RISK Performed By: #### T 7, CMP, TSH, LIPID #### [facility] [address] [place] [address] Dr. Raf Houston Cholesterol [Mass/Vol] 189 mg/dL Normal <=200 [facility] Comment on above: Performed By: #### T 7, CMP, TSH, LIPID #### [facility] [address] [address] [address] Raf Houston Cholesterol in HDL [Mass/Vol] 63 mg/dL Critically high 40-60 [facility] Comment on above: Performed By: #### T 7, CMP, TSH, LIPID #### [facility] [address] [place] [address] Dr. Raf Houston Cholesterol in LDL [Mass/Vol] 110.0 mg/dL Normal [facility] Comment on above: Performed By: #### T 7, CMP, TSH, LIPID #### [facility] [address] [address] [address] Raf Houston Cholesterol.total/Ch olesterol in HDL [Mass ratio] 3.0 {ratio} Normal [facility] Comment on above: Performed By: #### T 7, CMP, TSH, LIPID #### [facility] [address] [place] [address] Dr. Raf Houston HDL NORMAL > or = 60 mg/dl - LO W CARDIOVASCULAR RISK <40 mg/dl - HIGH CARDIOVASCULAR RISK Normal [facility] Comment on above: Performed By: #### T 7, CMP, TSH, LIPID #### [facility] [address] [address] [address] Raf Houston LDL CALC NORMAL SEE BELOW Normal [facility] Comment on above: Result Comment: <100 mg/dl OPTIMAL 100 - 129 mg/dl NEAR OR ABOVE OPTIMAL 130 - 159 mg/dl BORDERLINE HIGH 160 - 189 mg/dl HIGH >190 mg/dl VERY HIGH Performed By: #### T 7, CMP, TSH, LIPID #### [facility] [address] [address] [address] Raf Houston Triglyceride [Mass/Vol] 80 mg/dL Normal <=150 [facility] Comment on above: Performed By: #### T 7, CMP, TSH, LIPID #### [facility] [address] [place] [address] Dr. Raf Houston VLDL CALC 16.0 mg/dL Normal [facility] Comment on above: Performed By: #### T 7, CMP, TSH, LIPID #### [facility] [address] [place] [address] Dr. Raf Houston PROF 14(COMP METB)on 022 Albumin [Mass/Vol] 3.8 g/dL Normal 3.4-5.0 [facility] Comment on above: Performed By: #### T 7, CMP, TSH, LIPID #### [facility] [address] [place] [address] Dr. Raf Houston Albumin/Globulin [Mass ratio] 1.1 {ratio} Normal [facility] Comment on above: Performed By: #### T 7, CMP, TSH, LIPID #### [facility] [address] [place] [address] Dr. Raf Houston ALP [Catalytic activity/Vol] 72 U/L Normal 46-116 [facility] Comment on above: Performed By: #### T 7, CMP, TSH, LIPID #### [facility] [address] [place] [address] Dr. Raf Houston ALT [Catalytic activity/Vol] 35 U/L Normal 14-59 [facility] Comment on above: Performed By: #### T 7, CMP, TSH, LIPID #### [facility] [address] [address] [address] Raf Houston Anion gap [Moles/Vol] 9.7 mmol/L Normal [facility] Comment on above: Performed By: #### T 7, CMP, TSH, LIPID #### [facility] [address] [address] [address] Raf Houston AST [Catalytic activity/Vol] 18 U/L Normal 15-37 [facility] Comment on above: Performed By: #### T 7, CMP, TSH, LIPID #### [facility] [address] [address] [address] Raf Houston Bilirubin [Mass/Vol] 0.6 mg/dL Normal 0.2-1.0 [facility] Comment on above: Performed By: #### T 7, CMP, TSH, LIPID #### [facility] [address] [address] [address] Raf Houston Calcium [Mass/Vol] 8.7 mg/dL Normal 8.5-10.1 [facility] Comment on above: Performed By: #### T 7, CMP, TSH, LIPID #### [facility] [address] [address] [address] Raf Houstno Chloride [Moles/Vol] 103 mmol/L Normal 98-107 [facility] Comment on above: Performed By: #### T 7, CMP, TSH, LIPID #### [facility] [address] [address] [address] Raf Houston CO2 [Moles/Vol] 31.6 mmol/L Normal 21.0-32.[address] [facility] Comment on above: Performed By: #### T 7, CMP, TSH, LIPID #### [facility] [address] [address] [address] Raf Houston Creatinine [Mass/Vol] 0.72 mg/dL Normal 0.55-1.02 [facility] Comment on above: Performed By: #### T 7, CMP, TSH, LIPID #### [facility] [address] [address] [address] Raf Houston EGFR-AF ICELANDIC >60 Normal >=[address] [facility] Comment on above: Performed By: #### T 7, CMP, TSH, LIPID #### [facility] [address] [address] [address] Raf Houston EGFR-NON AF ICELANDIC >60 Normal >=60 [facility] Comment on above: Performed By: #### T 7, CMP, TSH, LIPID #### [facility] [address] [address] [address] Raf Houston Globulin (S) [Mass/Vol] 3.4 g/dL Normal [facility] Comment on above: Performed By: #### T 7, CMP, TSH, LIPID #### [facility] [address] [address] [address] Raf Houston Glucose [Mass/Vol] 103 mg/dL Normal 74-106 [facility] Comment on above: Performed By: #### T 7, CMP, TSH, LIPID #### [facility] [address] [place] [address] Dr. aRf Houston Potassium [Moles/Vol] 4.3 mmol/L Normal 3.5-5.1 [facility] Comment on above: Performed By: #### T 7, CMP, TSH, LIPID #### [facility] [address] [place] [address] Dr. Raf Houston Protein [Mass/Vol] 7.2 g/dL Normal 6.1-8.2 [facility] Comment on above: Performed By: #### T 7, CMP, TSH, LIPID #### [facility] [address] [address] [address] Raf Houston Sodium [Moles/Vol] 140 mmol/L Normal 136-145 [facility] Comment on above: Performed By: #### T 7, CMP, TSH, LIPID #### [facility] [address] [place] [address] Dr. Raf Houston Urea nitrogen [Mass/Vol] 13.0 mg/dL Normal 7.0-18.0 [facility] Comment on above: Performed By: #### T 7, CMP, TSH, LIPID #### [facility] [address] [place], [place] [id number] Dr. Raf Houston Urea nitrogen/Creatinine [Mass ratio] 18.1 mg/mg Normal [facility] Comment on above: Performed By: #### T 7, CMP, TSH, LIPID #### [facility] [address] [place] [address] Dr. Raf Houston TSHon 10-08-2021 TSH 0.471 uIU/mL Normal 0.470-4.680 [facility] Comment on above: Performed By: #### T 7, CMP, TSH, LIPID #### [facility] [address] [place] [address] Dr. Raf Houston TSH RANGE SEE BELOW Normal [facility] Comment on above: Result Comment: <0.3 4 UIU/ml HYPERTHYROID 0.34-5.60 UIU/ml EUTHYROID >5.60 UIU/ml HYPOTHYROID Performed By: #### T 7, CMP, TSH, LIPID #### [facility] [address] [place] [address] Dr. Raf Houston Covid-19 PCR ([facility])on 04-14 SARS-CoV-2 (COVID-19) RNA NAHED+probe Ql (Unsp spec) Not detected Normal NOT DETECTED [facility] Comment on above: Result Comment: This test is not yet approved or cleared by the [place] FDA. When there are no FDA-approved or cleared tests available, and other criteria are met, FDA can make tests available under an emergency access mechanism called an Emergency Use Authorization (EUA). The EUA for this test is supported by the [place] of Health and Human Service's (HHS's) declaration [...] consistent with SARS-CoV-2. Performed By: #### C [facility] #### [facility] [address] [address] [address] aRf Houston Outside Colonoscopyon 2019 Outside Colonoscopy [id number]#1.0 0CD:127 [facility] Lab Reportson 01-22-2020 Lab Reports [id number]#1.0 0CD:127 [facility] Consent for Procedure/Surger yon 01-02-2020 Consent for Procedure/Surgery [id number]#1.0 0CD:127 [facility] Facesheeton 01-01-2020 Facesheet [id number]#1.0 0CD:127 [facility] Ambulatory Clinical Summaryo n 12-28-2019 Ambulatory Clinical Summary {[id number] 01-05}CD:[id number] [facility] Consultation Noteon 12-24-19 20 Consultation Note [id number]#1.0 0CD:127 [facility] Lab Reportson 12-24-2019 Lab Reports [id number] 0CD:127 [facility] Physician Referralon 020 Physician Referral [id number] 0CD:127 [facility] Vital Signs Date Time Vital Sign Value Performing Clinician Facility 10-06-2022 10:45-0400 Body height 165.1 cm Vernon Bajwa Other [facility] Other 10-06-2022 10:45-0400 Body mass index (BMI) [Ratio] 32.61 kg/m2 Vernon Bajwa Other [facility] Other 10-06-2022 10:45-0400 Body weight 88.91 kg Vernon Bajwa Other [facility] Other 10-06-2022 10:45-0400 Diastolic blood pressure 85 mm[Hg] Vernon Bajwa Other [facility] Other 10-06-2022 10:45-0400 Systolic blood pressure 132 mm[Hg] Vernon Bajwa Other [facility] Other 04-07-2022 11:00-0400 Body height 165.1 cm Vernon Bajwa Other [facility] Other 04-07-2022 11:00-0400 Body mass index (BMI) [Ratio] 32.28 kg/m2 Vernon Garciaack Other [facility] Other 04-07-2022 11:00-0400 Body weight 88 kg Vernon Bajwa Other [facility] Other 04-07-2022 11:00-0400 Diastolic blood pressure 89 mm[Hg] Vernon Garett Other [facility] Other 04-07-2022 11:00-0400 Systolic blood pressure 127 mm[Hg] Vernon Garett Other [facility] Other Encounters Encounter Date Encounter Type Care Provider Facility Start: 02-15-2025 ambulatory [facility] Start: 01-11-2025 ambulatory [facility] Start: 01-01-2025 End: 01-01-2025 ambulatory [facility] Start: 11-22-2024 ambulatory [facility] Start: 10-25-[facility] [facility] Start: 09-17-2024 ambulatory [facility] Start: 08-30-2024 ambulatory [facility] Start: 08-28-2024 End: 08-28-2024 ambulatory Julisa Parikh Facility:[facility] Start: 06-28-2024 ambulatory [facility] Start: 06-01-2024 ambulatory [facility] Start: 05-31-2024 End: 05-31-2024 ambulatory Ousmane De La Torre Facility:[facility] Start: 05-29-2024 ambulatory [facility] Start: 05-22-2024 End: 05-22-2024 ambulatory [facility] Start: 05-16-2024 ambulatory [facility] Start: 05-02-2024 ambulatory [facility] Start: 04-09-2024 End: 04-09-2024 ambulatory [facility] Start: 03-20-2024 End: 03-20-2024 ambulatory [facility] Start: 10-06-2022 End: 10-06-2022 ambulatory Vernon Bajwa Other [facility] Start: 10-06-2022 Office outpatient visit 15 minutes Vernon Bajwa [facility] Start: 04-07-2022 End: 04-07-2022 ambulatory Vernon Bajwa Other [facility] Other Start: 04-07-2022 Office outpatient visit 15 minutes Vernon Bajwa [facility] Start: 01-14-2022 End: 01-15-2022 ambulatory JULISA PARIKH Facility: Start: 01-12-2022 End: 01-12-2022 ambulatory Vernon Bajwa Other [facility] Other Start: 01-12-2022 Telephone encounter Vernon Sewell ck [facility] Start: 10-19-2021 End: 10-20-2021 ambulatory JULISA PARIKH Facility:[facility] Start: 10-08-2021 End: 10-09-2021 ambulatory JULISA JL Facility:[facility] Start: 09-20-2021 End: 09-20-2021 ambulatory Ousmane Porrastahir Other [facility] Other Start: 09-20-2021 Encounter by josiah De La Torre [facility] Start: 05-05-2021 End: 05-05-2021 ambulatory JULISA PARIKH Facility:[facility] Payers Date Payer Category Payer Unknown [id number] 2024 Self-pay 2022 Unknown [id number] 1961 Medicare [id number] 2.1 [id number] 1961 Unknown [id number] 2.16.8 [id number] 1948 Unknown [id number] 2.16.84 [id number] 1948 Unknown [id number] 2.16.84 [id number] 1948 Unknown [id number] 2.16.84 [id number] 1948 Unknown [id number] 2.16.84 [id number] Unknown [id number] 2.16.8 [id number] Unknown [id number] 2.16.8 [id number] Social History Date Type Detail Facility Sex Assigned At [facility] Other Progress note 01-01-2025 Note Date & Type Note Facility 01-01-2025 Note [facility] Electrophysiology Consult Note [facility] Cardiology - [facility] Reason for visit: 01/01/2025 Patient is [...] 05/22/24 Patient here for bradycardia episodes per [employer] loop recorder, which was implanted on 04/09/2024. Says she was advised by someone at [facility] to go to the ED if [...] No results found (more content not included)... [facility] Progress note 05-22-2024 Note Date & Type Note Facility 05-22-2024 Note AR Electrophysiology Consult Note [facility] Cardiology [facility] Reason for visit: 05/22/24 Patient here for bradycardia episodes per [employer] loop recorder, which was implanted on 04/09/2024. Says she was advised by someone at [facility] to go to the ED if [...] with an a (more content not included)... [facility] Progress note 03-20-2024 Note Date & Type Note Facility 03-20-2024 Note AR Electrophysiology Consult Note AR Cardiology - [facility] Reason for visit: HPI: [...] 12 lead EKG: (more content not included)... [facility] Evaluation note 10-06-2022 Note Date & [...] Patient reports feeling well with no dyspepsia [facility] Other Evaluation note 04-07-2022 Note Date & Type Note Facility 04-07-2022 Evaluation note Encounter Date Diagnosis Assessment Notes Mar, GERD (gastroesopha geal reflux disease) (ICD-10 - K21.9) Continue Pantoprazole Mar, Hiatal hernia (ICD-10 - K44.9) Mar, Esophageal spasm (ICD-10 - K22.4) Pt to call if dysphagia returns Mar, Dyspepsia (ICD-10 - R10.13) Start Dicyclomine qid prn Follow up in 6 months [facility] Other Evaluation note 01-12-2022 Note Date & Type Note Facility 01-12-2022 Evaluation note Encounter Date Diagnosis Assessment Notes Jan, Gastro-esophage al reflux disease without esophagitis (ICD-10 - K21.9) [facility] Other Evaluation note Note Date & Type Note Facility Evaluation note No Information [facility] Other History general Narrative - Reported Note Date & Type Note Facility History general Narrative - Reported Type Medical History glaucoma Surgical History left elbow bone spur removal Surgical History gallbladder [facility] Other Summary Purpose Family History No Family History Records FoundNo Family History Records FoundNo Family History Records FoundNo Family History Records Found Advance Directives No Advanced Directives Records FoundNo Advanced Directives Records FoundNo Advanced Directives Records FoundNo Advanced Directives Records Found Additional Source Comments INFORMATION SOURCE (unrecogn ized section and content) DATE CREATED AUTHOR 02/11/2020 [facility] DATE CREATED AUTHOR AUTHOR'S ORGANIZ ATION 01/17/2022 [facility] DATE CREATED AUTHOR AUTHOR'S ORGANIZ ATION 08/30/2024 [facility] DATE CREATED AUTHOR AUTHOR'S ORGANIZ ATION 02/18/2025 [facility] REASON FOR VISIT (unrecogniz ed section [...] BE BASED ON THE PRIMARY CLINICAL RECORDS. [facility]. provides no warranty or guarantee of the accuracy or completeness of information in this document.
== END 2025-02-27 12:47 | disposition home or self-care (01) ==
LOC: CT 12:46
PROVIDERS: PCP Nurse Practitioner Family; Visit Provider Nurse Practitioner Family
DX: Z87.891 Personal history of nicotine dependence (principal)
CPT/HCPCS: 71271

== ENCOUNTER 2025-04-30 09:08 | Emergency (ER) | payer MEDICARE, SELFPAY ==
[2025-04-30] VITALS (25 sets, daily range): BP systolic 119–157; BP diastolic 67–104; PULSE 78–92; TEMP 36.5; O2SAT 94–98; BMI 31.0
--- OUTSIDE RECORDS SUMMARY | 2025-04-30 09:31 | XMS_ITS | CCD ---
Author Organization [facility] Care Team Providers Care Narrow Gauge Operator Name Role Phone Ousmane De La Torre Unavailable Vernon Bajwa Unavailable [phone] JULISA PARIKH Admitting Unavailable JULISA PARIKH Attending [...] CRISTIAN Referring Unavailable FRANCISCO, CRISTIAN Referring Unavailable MIHIRMARION Referring Unavailable FRANCISCO, CRISTIAN Referring Unavailable FRANCISCO, CRISTIAN Referring Unavailable FRANCISCO, CRISTIAN Referring Unavailable FRANCISCO, CRISTIAN Referring Unavailable FRANCISCO, CRISTIAN Referring Unavailable Allergies Allergy ClassificationReported Allergen(s)Allergy TypeDate of OnsetReaction(s) Facility (2 sources)Codeine; Translations: [CODEINE]Drug Hjlicqe47-96-8891Xef [facility] Repository (1 source)Sulfamethoxazole / TrimethoprimDrug AllergyThe [facility] (1 source)Sulfamethoxazole / Trimethoprim; Translations: [SULFAMETHOXAZOLE-TRIMETHOPRIM]Drug Mnuzxwd52-34-6968MopckfsjnxSycamore [facility] Rep[facility] Medications Current Medications MedicationDrug Class(es)DatesSig (Normalized)Sig (Original)albuterol 0.83 mg/ml inhalation solution (4 sources)beta2-Adrenergic AgonistAlbuterol Sulfate (2.5 MG/3ML) 0.083% 3 ml as needed Inhalation every 6 hrs ActiveALPRAZolam 0.25 mg oral tablet (4 sources)Benzodiazepinetake 1 tablet by mouth every twelve hoursALPRAZolam 0.25 MG 1 tablet Orally Twice a day Activebrinzolamide 10 mg/ml ophthalmic suspension (2 sources)Carbonic Anhydrase Inhibitortake 1 drop(s) into the eye(s) three times dailyBrinzolamide 1 % 1 drop into affected eye Ophthalmic Three times a day Activedicyclomine hydrochloride 20 mg oral tablet (2 sources)AnticholinergicStart: 61-97-6453npfn 1 tablet by mouth four times daily as neededDicyclomine HCl 20 MG 1 tablet Orally Four times a day PRN for 30 day(s) Mar, Activedorzolamide 20 mg/ml / timolol 5 mg/ml ophthalmic solution (4 sources)Carbonic Anhydrase Inhibitor, beta-Adrenergic Blockertake 1 drop(s) into the eye(s) twice dailyDorzolamide HCl-Timolol Mal 22.3-6.8 MG/ML 1 drop into affected eye Ophthalmic Twice a day Activelevothyroxine sodium 0.137 mg oral tablet (4 sources)l-Thyroxinetake 1 tablet by mouth once daily in the morning Levothyroxine Sodium 137 MCG 1 tablet in the morning on an empty stomach Orally Once a day Activeloratadine 10 mg oral tablet (4 sources)take 1 tablet by mouth once dailyLoratadine 10 MG 1 tablet Orally Once a day Activepantoprazole 40 mg delayed release oral tablet (2 sources)Proton Pump Inhibitortake 1 tablet by mouth every twenty-four hours Pantoprazole Sodium 40 MG 1 tablet Orally Once a day for 90 days Active Completed/Discontinued Medications MedicationDrug Class(es)DatesSig (Normalized)Sig (Original)triamcinolone acetonide 40 mg/ml injectable suspension (16 sources)CorticosteroidStart: 07-64-3693Exefcvt-40 Sep, 20 mgStart: 48-27-8703Wlhmabp -40 mg Sep, 20 mgStart: 12-32-3301Nnhqjph -40 mg Jan, 20 mg Problems Active Problems Problem ClassificationProblemDateDocumented DateEpisodic/ChronicAbdominal hernia (3 sources)Hiatal hernia; Translations: [Diaphragmatic hernia without obstruction or gangrene]EpisodicAbdominal pain (1 source)Epigastric painEpisodicCardiac dysrhythmias (2 sources)Ventricular premature depolarization; Translations: [Ventricular premature depolarization]Onset: 58-74-5019BnuryvmXhagvbmnd of lipid metabolism (1 source)Hyperlipidemia, unspecified; Translations: [HYPERLIPIDEMIA UNSPECIFIED]Onset: 76-81-9493LsdrvoqUpmkqkoqhe disorders (10 sources)Gastroesophageal reflux disease; Translations: [Gastro-esophageal reflux disease without esophagitis]Onset: 01-12-2022 Resolved: 19-51-2913DlragvvVfchfcaaplr chest pain (4 sources)Other chest pain; Translations: [OTHER CHEST PAIN]Onset: 10-19-2021 EpisodicOther disorders of stomach and duodenum (1 source)Indigestion; Translations: [Functional dyspepsia]EpisodicOther disorders of stomach and duodenum (1 source)Functional dyspepsiaEpisodicOther gastrointestinal disorders (2 sources)Dysphagia; Translations: [Dysphagia, unspecified]EpisodicOther screening for suspected conditions (not mental disorders or infectious disease) (1 source)Encounter for screening mammogram for malignant neoplasm of breast; Translations: [Encounter for screening mammogram for malignant neoplasm of breast]Onset: 35-57-3759OrpxjvzeFzsjrrbuq and history of mental health and substance abuse codes (4 sources)Personal history of nicotine dependence; Translations: [PERSONAL HISTORY OF NICOTINE DEPEND]Onset: 28-04-5028AreheeucMeaddbuwyxxz (3 sources)CONTACT W/AND (SUSP) EXPOS COVID-19; Translations: [CONTACT W/AND (SUSP) EXPOS COVID-19]Onset: 16-78-5744Mygfkracpelz (1 source)OTHER SPECIFIED COUGH; Translations: [OTHER SPECIFIED COUGH]Onset: 05-14-2021 Past or Other Problems Problem ClassificationProblemDateDocumented DateEpisodic/ChronicCardiac dysrhythmias (2 sources)Palpitations; Translations: [Palpitations]Onset: 68-25-4475Tmcaylwl Deficiency and other anemia (1 source)Anemia, unspecified; Translations: [ANEMIA UNSPECIFIED]Onset: 74-63-9879WfmmehayUrngvizt mellitus without complication (1 source)Other abnormal glucose; Translations: [OTHER ABNORMAL GLUCOSE]Onset: 08-26-9625YgpjeyqaWzjsgzn and fatigue (4 sources)Other fatigue; Translations: [OTHER FATIGUE]Onset: 81-37-9074Ozwkqwyx Other non-traumatic joint disorders (1 source)Pain in left shoulder; Translations: [Pain in left shoulder]Onset: 90-50-2144RizluelaZpvjrxmjmhrk (1 source)CONTACT W/AND (SUSP) EXPOS COVID-19; Translations: [CONTACT W/AND (SUSP) EXPOS COVID-19]Onset: 05-05-2021 Results Test NameValueInterpretationReference RangeFacilityOrders Onlyon 04-16-2025 Orders [id number] Hilda Matos 1950 F Provider Department Center 04/16/2025 [facility] Family History Problem Relation Age of Onset Angina Maternal Grandmother Family Status - Relation Status Age at Mother Father Maternal GrandmotherNMercy Health St. Charles HospitalOrders Onlyon 10-61-2936Ellodq [id number] MatosHilda 1950 Provider Department Center 02/13/2025 [facility]ORT [facility] Family History Problem Relation Age of Onset Angina Maternal Grandmother Family Status - Relation Status Age at Mother Father Maternal GrandmotherNMercy Health St. Charles HospitalOffice Visiton 04-84-9536Ehihzb-up [id number] Hilda Matos 1950 F Date Provider Department Center 01/01/2025 CRISTIAN BEAN CARD [facility] Family History Problem Relation Age of Onset Angina Maternal Grandmother Family Status - Relation Status Age at Mother Father Maternal Grandmother Level of Service:49444 NM OFFICE/OUTPATIENT ESTABLISHED LOW MDM 20 [facility] HospitalOrders Onlyon 84-77-9421Szraiz [id number] Hilda Matos 1950 F Date Provider Department Center 11/14/2024 [facility]ylaWOODYAYO [facility] Family History Problem Relation Age of Onset Angina Maternal Grandmother Family Status - Relation Status Age at Maternal GrandmotherNMercy Health St. Charles HospitalMM screening mammo BI w/CADon 91-19-6818QI screening mammo BI [facility] [address] [place] [address] Mammography Report Signed Patient: Hilda Matos MR#: [id number] : 1950 Acct:[id number] Age/Sex: 74 / F Adm Date: 08/28/24 Loc: [place] Room: Type: [facility] Attending Dr: Julisa Parikh REGIONAL BUSINESS MANAGER-C Ordering Provider: Julisa Parikh CNP Date of Service: 08/28/24 Procedure(s): MM screening mammo BI w/CAD Accession Number(s): ([id number]) MM/MM screening mammo BI w/CAD: Z12.39 Copies [...] Janeth Miguel M.D.08/28/2024 2:45 PM Dictation Location: [facility] Dictated By: Janeth Miguel MD 08/28/24 1443 Signed By: 08/28/24 1445[facility] GroupOffice Visiton 46-50-1066Cnkcbj- up [id number] Hilda Matos Ailyn 1950 F Date Provider Department Center 05/22/2024 CRISTIAN BEAN [facility] Family History Problem Relation Age of Onset Angina Maternal Grandmother Family Status - Relation Status Age at Maternal Grandmother Level of Service:08091 NM OFFICE/OUTPATIENT ESTABLISHED LOW MDM 20 [facility] HospitalCT CHEST WO CONon 70-71-3168TP CHEST WO CON EXAMINATION: CT CHEST WO [...] Electronically authenticated by: ROBERTA COLLAZO Date: 2022-01-14 16:24[facility] HospitalINSULINon 88-62-2540Wubhymg3.2 uIU/mLNormal2.6-24.9[facility] HospitalComment on above:Performed By: #### INSULIN #### [facility] [address] [place] [address] Dr. Raf Acuna AUTO DIFFon 74-94-1291GEYX #0.1 103/ulNormal0.0-0.1The [facility] HospitalComment on above:Performed By: #### CBC #### [facility] [address] [place] [address] Dr. Raf HoustonBasophils/100 WBC (Bld)1.1 %Normal0.2-2.0[facility] Comment on above:Performed By: #### CBC #### [facility] [address] [place] [address] Dr. Raf Plata #0.1 103/ulNormal0.0-0.7The [facility] HospitalComment on above: Performed By: #### CBC #### [facility] [address] [place] [address] Dr. Raf Reichosinophils/100 WBC (Bld)1.6 %Normal0.9-7.0[facility] Comment on above:Performed By: #### CBC #### [facility] [address] [place] [address] Dr. Raf Reichrythrocyte distribution width (RBC) [Ratio]13.2 %Oammoi05.0-15.0 [facility] HospitalComment on above:Performed By: #### CBC #### [facility] [address] [place] [address] Dr. Raf HoustonHematocrit (Bld) [Volume fraction]45.2 %Zuduwy19.0-48.0The [facility] HospitalComment on above:Performed By: #### CBC #### [facility] [address] [place] [address] Dr. Raf HoustonHemoglobin (Bld) [Mass/Vol]14.9 g/pSJzydwi09.0-16.0[facility] HospitalComment on above:Performed By: #### CBC #### [facility] [address] [place] [address] Dr. Raf Wade #0.01 10e3/ulNormal0.00-0.03The [facility] HospitalComment on above:Performed By: #### CBC #### [facility] [address] [place] [address] Dr. Raf Wade %0.2 %Normal0.0-0.5The [facility] HospitalComment on above: Performed By: #### CBC #### [facility] [address] [place] [address] Dr. Raf MartinezJeremi #1.5 103/ulNormal1.2-3.8The [facility] HospitalComment on above:Performed By: #### CBC #### [facility] [address] [place] [address] Dr. Raf Martinezhocytes/100 WBC (Bld)33.9 %Doermn82.5-60.0The [facility] HospitalCommymichigan medical center al[facility] on above:Performed By: #### CBC #### [facility] [address] [place] [address] Dr. Raf AbramsUAL DIFF REQNONormalThe [facility] HospitalComment on above: Performed By: #### CBC #### [facility] [address] [place] [address] Dr. Raf Nettles (RBC) [Entitic mass]30.6 irSfdibq55.7-34.0The [facility] HospitalCommymichigan medical center alpena on above:Performed By: #### CBC #### [facility] [address] [place] [address] Dr. Raf Nettles (RBC) [Mass/Vol]33.0 g/iHKztpdf38.9-35.2The [facility] HospitalComment on above:Performed By: #### CBC #### [facility] [address] [place] [address] Dr. Raf Nettles (RBC) [Entitic vol]92.8 tLInrivs62.0-99.0The [facility] HospitalComment on above:Performed By: #### CBC #### [facility] [address] [place], [place] [address] Dr. Raf Houser #0.5 103/ulNormal0.3-0.8The [facility] HospitalComment on above:Performed By: #### CBC #### [facility] [address] [place] [address] Dr. Raf Godinezocytes/100 WBC (Bld)11.0 %Normal1.7-12.0[facility] Comment on above:Performed By: #### CBC #### [facility] [address] [place] [address] Dr. Raf Ferrer #2.3 103/ulNormal1.4-6.5The [facility] HospitalComment on above:Performed By: #### CBC #### [facility] [address] [place] [address] Dr. Raf Greenutrophils/100 WBC (Bld)52.2 %Tnarpf82.0-75.0The [facility] HospitalComment on above:Performed By: #### CBC #### [facility] [address] [place] [address] Dr. Raf Lazcanolet mean volume (Bld) [Entitic vol]9.6 fLNormal9.5-13.5The [facility] HospitalComment on above:Performed By: #### CBC #### [facility] [address] [place] [address] Dr. Raf HoustonPLT215 103/yaYltafe930-813Lya [facility] HospitalComment on above: Performed By: #### CBC #### [facility] [address] [place] [address] Dr. Raf HoustonRBC4.87 106/ulNormal4.20-5.40The [facility] HospitalComment on above:Performed By: #### CBC #### [facility] [address] [place] [address] Dr. Raf HoustonWBC4.5 103/ulNormal4.0-11.0The [facility] HospitalComment on above: Performed By: #### CBC #### [facility] [address] [place] [address] Dr. Raf Mac THYROXINE INDEX T7on 49-77-2761UWQ8.61NormSamaritan North Health CenterComment on above:Performed By: #### T7, CMP, TSH, LIPID #### [facility] [address] [address] [address] Raf HoustonT3U41.0 %Critically high23.5-40.5The [facility] HospitalComment on above:Performed By: #### T7, CMP, TSH, LIPID #### [facility] [address] [place] [address] Dr. Raf HoustonT4 [Mass/Vol]8.80 ug/dLNormal4.80-13.90The [facility] Comment on above:Performed By: #### T7, CMP, TSH, LIPID #### [facility] [address] [place] [address] Dr. Raf HousotnGLYCOHEMOGLOBIN A1Con 19-52-2830AXV RECOMMENDATIONSEE BELOWNormal The [facility] HospitalComment on above:Result Comment: ADA RECOMMENDED LIMIT 4.0 - 6.0 ADA THERAPEUTIC TARGET < 7.0 ACTION SUGGESTED > 7.0Performed By: #### A1C #### [facility] [address] [place] [address] Dr. Raf HoustonGlucose [Mass/Vol]111 mg/dLNoPremier Health Atrium Medical CenterComment on above:Performed By: #### A1C #### [facility] [address] [place] [address] Dr. Raf HoustonHbA1c (Bld) [Mass fraction]5.5 %Normal4.5-6.2The [facility] HospitalComment on above:Performed By: #### A1C #### [facility] [address] [place] [address] Dr. Raf Frias 86-62-9314Gfmc [Mass/Vol]139.0 ug/iGOnbtqt93.0-170.0The [facility] HospitalComment on above:Performed By: #### IRON #### [facility] [address] [place] [address] Dr. Raf ElID PROFILEon 10-65-6595NSUH-HDL RATIO NORMSSelect Medical Cleveland Clinic Rehabilitation Hospital, BeachwoodComment on above:Result Comment: 3.3 - 4.4 LOW RISK 4.4 - 7.1 AVERAGE RISK 7.1 - 11.0 MODERATE RISK >11.0 HIGH RISKPerformed By: #### T7, CMP, TSH, LIPID #### [facility] [address] [address] [address] Raf HoustonCholesterol [Mass/Vol]189 mg/dLNormal<=200[facility] Comment on above:Performed By: #### T7, CMP, TSH, LIPID #### [facility] [address] [place] [address] Dr. Raf Portilloesterol in HDL [Mass/Vol]63 mg/dLCritically pzxx02-85HflCleveland Clinic Medina HospitalComment on above:Performed By: #### T7, CMP, TSH, LIPID #### [facility] [address] [place] [address] Dr. Raf Portilloesterol in LDL [Mass/Vol]110.0 mg/dLMercy Memorial HospitalComment on above:Performed By: #### T7, CMP, TSH, LIPID #### [facility] [address] [place] [address] Dr. Raf Vaughn.total/Cholesterol in HDL [Mass ratio]3.0 {ratio} NormalCleveland Clinic Medina HospitalComment on above:Performed By: #### T7, CMP, TSH, LIPID #### [facility] [address] [place] [address] Dr. Raf Ferris NORMAL> or = 60 mg/dl - LOW CARDIOVASCULAR RISK <40 mg/dl - HIGH CARDIOVASCULAR RISKMercy Memorial HospitalComment on above:Performed By: #### T7, CMP, TSH, LIPID #### [facility] [address] [place] [address] Dr. Raf HoustonLDL CALC NORMALSEE [facility] Hospital - CantonComment on above:Result Comment: <100 mg/dl OPTIMAL 100 - 129 mg/dl NEAR OR ABOVE OPTIMAL 130 - 159 mg/dl BORDERLINE HIGH 160 - 189 mg/dl HIGH >190 mg/dl VERY HIGH Performed By: #### T7, CMP, TSH, LIPID #### [facility] [address] [address] [address] Raf HoustonTriglyceride [Mass/Vol]80 mg/dLNormal<=150The [facility] Comment on above:Performed By: #### T7, CMP, TSH, LIPID #### [facility] [address] [address] [address] Raf HoustonVLDL CALC16.0 mg/dLNormalThe [facility] HospitalComment on above: Performed By: #### T7, CMP, TSH, LIPID #### [facility] [address] [place] [address] Dr. Raf HoustonPROSolitario 14(COMP METB)on 29-31-1082Fkgehia [Mass/Vol]3.8 g/dLNormal 3.4-5.0The [facility] HospitalComment on above:Performed By: #### T7, CMP, TSH, LIPID #### [facility] [address] [place] [address] Dr. Raf HoustonAlbumin/Globulin [Mass ratio]1.1 {ratio}NormalThe [facility] HospitalComment on above:Performed By: #### T7, CMP, TSH, LIPID #### [facility] [address] [place] [address] Dr. Raf Costa [Catalytic activity/Vol]72 U/UBgbupz37-864Gup [facility] HospitalComment on above:Performed By: #### T7, CMP, TSH, LIPID #### [facility] [address] [place] [address] Dr. Raf Win [Catalytic activity/Vol]35 U/BCzfxtt07-73Dbr [facility] HospitalComment on above:Performed By: #### T7, CMP, TSH, LIPID #### [facility] [address] [place] [address] Dr. Raf Hdz gap [Moles/Vol]9.7 mmol/LNormalThe [facility] HospitalComment on above:Performed By: #### T7, CMP, TSH, LIPID #### [facility] [address] [address] [address] Raf HoustonAST [Catalytic activity/Vol]18 U/KOrkpox73-13Zqs [facility] HospitalComment on above:Performed By: #### T7, CMP, TSH, LIPID #### [facility] [address] [address] [address] Raf HoustonBilirubin [Mass/Vol]0.6 mg/dLNormal0.2-1.0[facility] Comment on above:Performed By: #### T7, CMP, TSH, LIPID #### [facility] [address] [place] [address] Dr. Raf HoustonCalcium [Mass/Vol]8.7 mg/dLNormal8.5-10.1[facility] Comment on above:Performed By: #### T7, CMP, TSH, LIPID #### [facility] [address] [address] [address] Raf HoustonChloride [Moles/Vol]103 mmol/EDnhavz71-444Kol [facility] Comment on above:Performed By: #### T7, CMP, TSH, LIPID #### [facility] [address] [address] [address] Raf HoustonCO2 [Moles/Vol]31.6 mmol/QLmmszq09.0-32.0[facility] Comment on above:Performed By: #### T7, CMP, TSH, LIPID #### [facility] [address] [address] [address] Raf HoustonCreatinine [Mass/Vol]0.72 mg/dLNormal0.55-1.02The [facility] HospitalComment on above:Performed By: #### T7, CMP, TSH, LIPID #### [facility] [address] [place] [address] Dr. Raf ReichGFR-AF RWANDAN>60Normal>=60The [facility] HospitalComment on above:Performed By: #### T7, CMP, TSH, LIPID #### [facility] [address] [address] [address] Yilan ChangEGFR-NON AF RWANDAN>60Normal>=60The [facility] HospitalComment on above:Performed By: #### T7, CMP, TSH, LIPID #### [facility] [address] [place] [address] Dr. Raf HoustonGlobulin (S) [Mass/Vol]3.4 g/dLNormSamaritan North Health CenterComment on above:Performed By: #### T7, CMP, TSH, LIPID #### [facility] [address] [place] [address] Dr. Raf HoustonGlucose [Mass/Vol]103 mg/yPUeeelc59-201FruCleveland Clinic Medina Hospital Comment on above:Performed By: #### T7, CMP, TSH, LIPID #### [facility] [address] [place] [address] Dr. Raf HoustonPotassium [Moles/Vol]4.3 mmol/LNormal3.5-5.1[facility] Comment on above:Performed By: #### T7, CMP, TSH, LIPID #### [facility] [address] [place] [address] Dr. Raf HoustonProtein [Mass/Vol]7.2 g/dLNormal6.1-8.2[facility] Comment on above:Performed By: #### T7, CMP, TSH, LIPID #### [facility] [address] [place] [address] Dr. Raf HoustonSodium [Moles/Vol]140 mmol/WFqaxaf262-097XybCleveland Clinic Medina Hospital Comment on above:Performed By: #### T7, CMP, TSH, LIPID #### [facility] [address] [place] [address] Dr. Raf HoustonUrea nitrogen [Mass/Vol]13.0 mg/dLNormal7.0-18.0The [facility] HospitalComment on above:Performed By: #### T7, CMP, TSH, LIPID #### [facility] [address] [place] [address] Dr. Raf HoustonUrea nitrogen/Creatinine [Mass ratio]18.1 mg/mgNoPremier Health Atrium Medical CenterComment on above:Performed By: #### T7, CMP, TSH, LIPID #### [facility] [address] [place] [address] Dr. Raf Nogueira 91-26-8142MMN6.471 uIU/mLNormal0.470-4.680The [facility] HospitalComment on above:Performed By: #### T7, CMP, TSH, LIPID #### [facility] [address] [place] [address] Dr. Raf Escamilla RANGESEE BELOWNormalThSt. Francis HospitalComment on above: Result Comment: <0.34 UIU/ml HYPERTHYROID 0.34-5.60 UIU/ml EUTHYROID >5.60 UIU/ml HYPOTHYROIDPerformed By: #### T7, CMP, TSH, LIPID #### [facility] [address] [place] [address] Dr. Raf Lowe-19 PCR (CVDTB)on 69-29-7319EHUG-CoV-2 (COVID-19) RNA NAHED+probe Ql (Unsp spec)Not detectedNormalNOT DETECTEDThe [facility] Comment on above:Result Comment: This test is not yet approved or cleared by the [place] FDA. When there are no FDA-approved or cleared tests available, and other criteria are met, FDA can make tests available under an emergency access mechanism called an Emergency Use Authorization (EUA). The EUA for this test is supported by the [place] of Health and Human Service's (HHS's) declaration that circumstances exist to justify the emergency use of in vitro diagnostics for the detection and/or diagnosis of the virus that causes COVID- 19. This EUA will remain in effect (meaning [...] of clinical signs and symptoms consistent with SARS-CoV-2.Performed By: #### CVDTBH #### [facility] [address] [place] [address] Dr. Raf Shields Colonoscopyon 32-40-4212Qnjytxk Colonoscopy [id number]#1.00CD:[address] [place], [place] [address]Lab Reportson 21-14-8605Asd Reports [id number]#1.00CD:[address] [place], [place] [address]Consent for Procedure/Surgeryon 21-25-4295Cgaggkw for Procedure/Surgery [id number]#1.00CD:[address] [place], [place] [address]Facesheeton 19-12-5452Lzaycpzyd [id number]#1.00CD:[address] [place], [place] [address]Ambulatory Clinical Summaryon 15-91-6954Bbuoxyawot Clinical Summary {0j-im-6u-31-33-1j-71-7y-s0-ah-47-0s-8a-a7-17-26}CD:722879SchfbdPipntyMetroHealth Parma Medical CenterConsultation Noteon 08-58-9084Ukwmdmroyboi Note [id number]#1.00CD:[address] [place], [place] [address]Lab Reportson 56-24-4694Wou Reports [id number]#1.00CD:[address] [place], [place] [address]Physician Referralon 55-18-5254Eqmtctgxy Referral [id number]#1.00CD:[address] [place] [address] Vital Signs Date TimeVital SignValuePerforming KritjuohmUaatwfak84-40-4211 10:45-0400Body .1 Ayiln Bajwa Other [employer] Other 04-26-2023 10:45-0400Body mass index (BMI) [Ratio] 32.61 kg/h1Jozovlntabisai Bajwa Other noOffline Media Other 04-26-2023 10:45-0400Body fceaxi42.91 kgLaabisai Bajwa Other Earlier Media Other 04-26-2023 10:45-0400Diastolic blood drzutezd32 mm[Hg] Vernon Gasparormack Other Earlier Media Other 04-26-2023 10:45-0400Systolic blood qldbqrse268 mm[Hg] Vernon Gasparormack Other Earlier Media Other 10-26-2022 11:00-0400Body wokbes641.1 cmLganeshralphxavi GapsarGarett Other Earlier Media Other 10-26-2022 11:00-0400Body mass index (BMI) [Ratio] 32.28 kg/j8Qnidsvttabisai Bajwa Other noOffline Media Other 10-26-2022 11:00-0400Body dyoyzz48 kgLaabisai Bajwa Other Earlier Media Other 10-26-2022 11:00-0400Diastolic blood eeftwtry67 mm[Hg] Vernon Bajwa Other Earlier Media Other 10-26-2022 11:00-0400Systolic blood khnvuytm849 mm[Hg] Vernon Garett Other Earlier Media Other Encounters Encounter DateEncounter TypeCare ProviderFacilityStart: 60-35-8186zoqamrdcyc MARION GRUBBUniversRiverside Methodist Hospitaltart: 39-19-8793jsgvcqeccvBFWWPike Community Hospitaltart: 09-54-4585bqwuxupsouXOBRAshtabula County Medical Centertart: 01-01-2025 End: 50-97-0336dwwzjgaemlGTFVPike Community Hospitaltart: 48-40-1433zzngrwjinhDEMHPike Community Hospitaltart: 16-34-4002jjuwzlvoxjDDGIPike Community Hospitaltart: 22-57-5442prwnnzllwyMHLLPremier Health Upper Valley Medical Centertart: 36-97-3200uapkrxgwxxAGJGPike Community Hospitaltart: 08-28-2024 End: 83-72-7392gppazpyectEulvcp Sue CramerFacility:[facility] Hospitaltart: 30-43-7960yboufitptrNDSGMercy Health [facility] Start: 32-89-8238ebqvewvznwISDQPike Community Hospitaltart: 05-31-2024 End: 25-44-6844tdwafthgtxQctzgzl M HoyFacility:[facility] Start: 04-25-3256ghnudxtpsuISUNPremier Health Upper Valley Medical Centertart: 05-22-2024 End: 28-10-9253xsrnwvwfgrIBLGPike Community Hospitaltart: 94-52-1180nrlmkmcjlcEZKOPike Community Hospitaltart: 54-02-6917efeacjnqkyTOOAPike Community Hospitaltart: 10-06-2022 End: 49-56-6344rfybwaabaqKuwdllvj McCormack Other noOffline Media Other Start: 73-84-4972Yxbamz outpatient visit 15 minutes Vernon Rodriguez GastroenterologyStart: 04-07-2022 End: 51-39-9275aqanthksliLtrhnrdh McCormack Other noOffline Media Other Start: 17-68-9747Yrwvuq outpatient visit 15 minutes Vernon BajwaFPG GastroenterologyStart: 01-14-2022 End: 96-46-6637pxgvrysfstXTUFBP CRAMERFacility:E6Jxfyq: 01-12-2022 End: 51-31-6100ybqeivkilgOgzoomfa Garett Other [employer] Other Start: 52-05-1830Ujndsdcip encounterLawrence Garett FPG GastroenterologyStart: 10-19-2021 End: 73-18-2558ttvootecghSVJZSS CRAMERFacility:Z4Acqyy: 10-08-2021 End: 88-85-9327cpsuyvshetMLWFIY CRAMERFacility:J9Dpczs: 09-20-2021 End: 27-78-7923capwlatuzlTaqedua Hoy Other [employer] [place] [employer] Other Start: 32-02-0834Jnwryzayq by computer Vicky De La Torre FPG [facility]opedicsStart: 05-05-2021 End: 04-35-7904ydqwqaiujuQOHONT CRAMERFacility:H1 Payers DatePayer CategoryPayerPolicy [id number] [id number] [id number] 2..[id number] 2..[id number] 2..[id number] [id number] [id number] [id number] [id number] [id number] Social History DateTypeDetailFacilitySex Assigned At [employer] Other Progress note 01-01-2025 Note Date & CkvvVxkcRjvfpkts43-54-5939 NoteUT Electrophysiology Consult Note [place] [facility] Reason for visit: 01/01/2025 Patient [...] 05/22/24 Patient here for bradycardia episodes per [employer] loop recorder, which was implanted on 04/09/2024. 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 [employer] Tobacco Use: Medium Risk (01/01/2025) Patient History Smoking Tobacco Use: Former Smokeless Tobacco Use: Never Passive Exposure: Not on file Alcohol Use: Not on file Financial Resource Strain: Not on file Food Insecurity: Not on file Transportation Needs: Not on file Physical Activity: Not on file Stress: Not on file Social Connections: Not on file Intimate Partner Violence: Unknown (10/21/2023) [place] Safety & Environment Fear of Current or [...] @LABRESULTS@ No results found (more content not included)...[facility] Progress note 05-22-2024 Note Date & OqroEmgfPhanrilo43-57-9994 NoteUT Electrophysiology Consult Note [place] [facility] Reason for visit: 05/22/24 Patient here for bradycardia episodes per [employer] loop recorder, which was implanted on 04/09/2024. Says she was advised by someone at [facility] to go to the ED if she [...] on file Intimate Partner Violence: Unknown (10/21/2023) [place] Safety & Environment Fear of Current or [...] sinus with an a (more content not included)...[facility] Evaluation note 10-06-2022 Note Date & LhejSvrgTbvyklua45-24-9183 Evaluation note* Encounter Date Diagnosis Assessment Notes Treatment Notes Treatment Clinical Notes Sep, GERD (gastroesophageal reflux di sease) (ICD-10 - K21.9) Patient reports feeling well with no heartburn. Patient is watching her diet & avoiding foods that trigger her symptoms. Continue Pantioprazole without change, Return visit in one year Sep,Esophageal spasm (ICD-10 - K22.4) Sep,3Dyspepsia (ICD-10 - K30)Patient reports feeling well with no dyspepsia Earlier Media Other Evaluation note 04-07-2022 Note Date & QdtfHypcOppnkerk43-15-5845 Evaluation note* Encounter Date Diagnosis Assessment Notes Treatment Notes Treatment Clinical Notes Mar, GERD (gastroesophageal reflux di sease) (ICD-10 - K21.9) Continue Pantoprazole Mar,Hiatal hernia (ICD-10 - K44.9) Mar,Esophageal spasm (ICD-10 - K22.4)Pt to call if dysphagia returns Mar,2Dyspepsia (ICD-10 - R10.13)Start Dicyclomine qid prn Follow up in 6 months Earlier Media Other Evaluation note 01-12-2022 Note Date & QmqzQbepShteqokz47-45-6521 Evaluation note* Encounter Date Diagnosis Assessment Notes Treatment Notes Treatment Clinical Notes Jan, Gastro-esophageal re flux disease without esophagitis (ICD-10 - K21.9) Earlier Media Other Evaluation note Note Date & TypeNoteFacilityEvaluation noteNo InformationNort [employer] Other History general Narrative - Reported Note Date & TypeNoteFacilityHistory general Narrative - Reported* Type Description Date Medical History glaucoma Surgical Historyleft elbow bone spur removalSurgical Historygallbladder Earlier Media Other Summary Purpose Family History No Family History Records FoundNo Family History Records FoundNo Family History Records FoundNo Family History Records Found Advance Directives No Advanced Directives Records FoundNo Advanced Directives Records FoundNo Advanced Directives Records FoundNo Advanced Directives Records Found Additional Source Comments INFORMATION SOURCE (unrecogn ized section and content) DATE CREATED AUTHOR 02/11/2020 [facility] DATE CREATED AUTHOR AUTHOR'S ORGANIZ ATION 01/17/2022 [facility] DATE CREATED AUTHOR AUTHOR'S ORGANIZ ATION 08/30/2024 [facility] DATE CREATED AUTHOR AUTHOR'S ORGANIZ ATION 04/22/2025 [facility] REASON FOR VISIT (unrecogniz ed section and [...] BE BASED ON THE PRIMARY CLINICAL RECORDS. [employer] provides no warranty or guarantee of the accuracy or completeness of information in this document.
--- NOTE | 2025-04-30 09:37 | ECG_ITS ---
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 Measurements Intervals [place] Rate: 88 P: 33 HI: 206 QRS: -74 QRSD: 86 T: 47 QT: 344 QTc: 389 Interpretive Statements 1100 Sinus rhythm 1470 with occasional supraventricular premature complexes 2630 Left anterior fascicular block 3114 Cannot rule out anterior myocardial infarction, age undetermined 9150 abnormal ECG No previous ECG available for comparison Electronically Signed On 04-30-2025 21:33:19 EST by DEZ LR M.D.
--- NOTE | 2025-04-30 09:37 | XR_ITS ---
The [address] [address] Patient Name: HILDA PARMAR MRN: [id number] date: 1950 Sex: F Assigned Patient Location: ER Current Patient Location: ER Accession/Order Number: [id number] Exam Date: 04/30/2025 09:55 Report Date: 04/30/2025 10:18 At the request of: TAVON HILL MD Procedure: XR chest 1V PORTABLE AP ERECT CHEST 0939 hours CLINICAL HISTORY: Chest pain and heaviness. Hypertension. COMPARISON: CT 02/27/2025 A loop recorder overlies the left mid chest. The heart is borderline enlarged. There is a left pericardial fat pad. There is no vascular congestion. No consolidation is seen. There is no sizable effusion or pneumothorax. The osseous structures are intact. XR/XR chest 1V IMPRESSION: NO ACUTE FINDINGS Impression dictated by: Janeth Miguel M.D. 04/30/2025 10:18 AM Dictation Location: [place] [address] Electronically authenticated by: [id number] Y Date: 04/30/2025 10:18
--- NOTE | 2025-04-30 09:38 | ED.GENADUL1 ---
HPI HPI - General Adult General Chief complaint: Recheck/Abnormal Lab/Rx Stated complaint: CHEST HEAVINESS, HYPERTENSION Time Seen by Provider: 04/30/25 09:28 Source: patient Mode of arrival: walk-in Limitations: no limitations History of Present Illness HPI narrative: 75-year-old female presented for elevated blood pressure. She also complains of some chest tightness and this all began a few hours ago. She has no history of hypertension but felt like her heart was racing today and she took her blood pressure at home and it was high so she came in here. She no longer feels like her heart is racing. She has a loop recorder. Related Data Home Medications ?Medication ?Instructions ?Recorded ?Confirmed alprazolam 0.25 mg tablet mg 04/30/25 dorzolamide 22.3 mg-timolol 6.8 ophthalmic (eye) 04/30/25 mg/mL eye drops levothyroxine 137 mcg tablet mcg 04/30/25 (Synthroid) pantoprazole 40 mg tablet,delayed mg PO 04/30/25 release Allergies Allergy/AdvReac Type Severity Reaction Status Date / Time No Known Drug Allergies Allergy Verified 04/30/25 09:25 Opioid HPI Opioid Management Most Recent Opioid Data: Last Pain Scale 5 Today, 09:18 Review of Systems ROS Narrative A ten point review of systems is negative except as noted above. PFSH PFSH Social History Little interest or pleasure in doing things: not at all Feeling down, depressed, or hopeless: not at all Exam Narrative Exam Narrative: Nurses note and vital signs reviewed General:The patient appears well and in no apparent distress.Patient is resting comfortably on cart. Skin:Warm, dry, no pallor noted.There is no rash noted. Head:Normocephalic, atraumatic Eye: Normal conjunctiva, no drainage Ears, Nose, Mouth, and Throat: oral mucosa is moist. Nares patent. Cardiovascular:Regular Rate and Rhythm, not tachycardic Respiratory:Patient is in no distress, no accessory muscle use, lungs are clear to auscultation, no wheezing, rales or rhonchi Back:non-tender GI: Soft and nontender Musculoskeletal: The patient has no evidence of calf tenderness, no pitting edema, symmetrical pulses noted bilaterally Neurological:A&O, normal speech Psychiatric:Cooperative Constitutional Vital Signs, click to edit/add: Last Vital Signs Temp 97.7 F 04/30/25 09:18 Pulse 83 04/30/25 12:22 Resp 14 04/30/25 12:22 BP 143/78 H 04/30/25 10:38 Pulse Ox 97 04/30/25 10:40 O2 Del Method Room Air 04/30/25 09:18 Course Vital Signs Vital signs: Vital Signs Temperature 97.7 F 04/30/25 09:18 Pulse Rate 87 04/30/25 09:18 Respiratory Rate 16 04/30/25 09:18 Blood Pressure 157/104 H 04/30/25 09:18 Pulse Oximetry 96 04/30/25 09:18 Oxygen Delivery Method Room Air 04/30/25 09:18 Temperature 97.7 F 04/30/25 09:18 Pulse Rate 83 04/30/25 12:22 Respiratory Rate 14 04/30/25 12:22 Blood Pressure 143/78 H 04/30/25 10:38 Pulse Oximetry 97 04/30/25 10:40 Oxygen Delivery Method Room Air 04/30/25 09:18 Medical Decision Making MDM Narrative Medical decision making narrative: Her blood pressure normalized without any intervention. 3 sets of troponin are not significantly changed. She will be discharged home and has the ability to check her blood pressure at home and she has an appointment with her analytics consultant next week. She will keep that appointment. At this point I do not suspect acute coronary syndrome. Treatment diagnosis and follow-up were discussed with the patient. Differential Diagnosis Differential Diagnosis: SC, hypertension, anxiety Lab Data Lab results reviewed: Yes I reviewed the patient's lab results Labs: Lab Results 04/30/25 04/30/25 04/30/25 Range/Units 09:46 10:36 12:00 WBC 3.3 L (4.0-11.0) 10^3/uL RBC 5.15 (4.20-5.40) 10^6/uL Hgb 15.6 (12.0-16.0) g/dL Hct 46.1 (36.0-48.0) % MCV 89.5 (81.0-99.0) fL MCH 30.3 (26.7-34.0) pg MCHC 33.8 (29.9-35.2) g/dL RDW 13.0 (11.0-15.0) % Plt Count 192 (150-450) 10^3/uL MPV 10.0 (9.5-13.5) fL Neut % (Auto) 49.5 (43.0-75.0) % Lymph % (Auto) 34.5 (20.5-60.0) % [place] % (Auto) 12.7 H (1.7-12.0) % Eos % (Auto) 2.4 (0.9-7.0) % Baso % (Auto) 0.6 (0.2-2.0) % Neut # (Auto) 1.6 (1.4-6.5) 10^3/uL Lymph # (Auto) 1.1 L (1.2-3.8) 10^3/uL [place] # (Auto) 0.4 (0.3-0.8) 10^3/uL Eos # (Auto) 0.1 (0.0-0.7) 10^3/uL Baso # (Auto) 0.0 (0.0-0.1) 10^3/uL Abs Immat Gran (auto) 0.01 (0.00-0.03) 10^3/uL Imm/Tot Granulo (auto) 0.3 (0.0-0.5) % Sodium 140 (136-145) mmol/L Potassium 4.4 (3.5-5.1) mmol/L Chloride 105 (98-107) mmol/L Carbon Dioxide 27.7 (21.0-32.0) mmol/L Anion Gap 11.7 BUN 14.0 (7.0-18.0) mg/dL Creatinine 0.84 (0.55-1.02) mg/dL Est GFR ( Amer) >60 (>=60 mL/min/1.73m^2) Est GFR (Non-Af Amer) >60 (>=60 mL/min/1.73m^2) BUN/Creatinine Ratio 16.7 Glucose 110 H (74-106) mg/dL Calcium 9.2 (8.5-10.1) mg/dL Troponin I High Sens 12.6 17.2 19.6 (4.0-51.3) pg/mL Imaging Data Chest x-ray: Radiologist's impression: ITS Impressions Chest X-Ray 04/30/25 09:37 IMPRESSION: NO ACUTE FINDINGS Impression dictated by: Janeth Miguel M.D. 04/30/2025 10:18 AM Dictation Location: [place] [address] Electronically authenticated by: [id number] Y Date: 04/30/2025 10:18 ECG Data Attestation: I personally reviewed and interpreted this ECG as follows: (EKG on my interpretation shows sinus rhythm with a rate of 88 and no acute change) Discharge Plan Discharge Chief Complaint: Recheck/Abnormal Lab/Rx Clinical Impression: Elevated blood pressure reading, Chest pain Patient Disposition: Home, Self-Care Time of Disposition Decision: 12:44 Condition: Good Mode of Transportation: Private Vehicle Prescriptions / Home Meds: No Action levothyroxine [Synthroid] 137 mcg tablet alprazolam 0.25 mg tablet pantoprazole 40 mg tablet,delayed release (DR/EC) PO dorzolamide-timolol 22.3-6.8 mg/mL drops OPHTHALMIC (EYE) Print Language: Lebanese Instructions: Chest Pain (ED) Referrals: KAT PARIKH [Primary Care Provider, Family Practice] - 1 week
[2025-04-30 10:03] LABS: Hematocrit 46.1 % (36.0-48.0); Hemoglobin 15.6 g/dL (12.0-16.0); Immature Granulocytes Abs Auto 0.01 10^3/uL (0.00-0.03); Immature Granulocytes Pct Auto 0.3 % (0.0-0.5); Lymphocytes Absolute Auto 1.1 10^3/uL (1.2-3.8); Mean Corpuscular HGB Conc 33.8 g/dL (29.9-35.2); Mean Corpuscular Hemoglobin 30.3 pg (26.7-34.0); Mean Corpuscular Volume 89.5 fL (81.0-99.0); Platelet Count 192 10^3/uL (150-450); Red Blood Count 5.15 10^6/uL (4.20-5.40); White Blood Count 3.3 10^3/uL (4.0-11.0)
[2025-04-30 10:15] LABS: Anion Gap 11.7; Blood Urea Nitrogen 14.0 mg/dL (7.0-18.0); Calcium 9.2 mg/dL (8.5-10.1); Carbon Dioxide 27.7 mmol/L (21.0-32.0); Chloride 105 mmol/L (98-107); Estimated GFR (African America >60 (>=60 mL/min/1.73m^2); Estimated GFR (Non-African Ame >60 (>=60 mL/min/1.73m^2); Glucose 110 mg/dL (74-106); Potassium 4.4 mmol/L (3.5-5.1); Sodium 140 mmol/L (136-145)
--- NOTE | 2025-04-30 11:36 | ECG_ITS ---
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
== END 2025-04-30 13:01 | disposition home or self-care (01) ==
PROVIDERS: Emergency Provider Emergency Medicine; PCP Nurse Practitioner Family
DX: R07.89 Other chest pain (principal); R03.0 Elevated blood-pressure reading, without diagnosis of hypertension
CPT/HCPCS: 36415; 71045; 80048; 84484; 85025; 93005; 99285